=== PATIENT | female | born 1960 | race Caucasian/White ===

== ENCOUNTER 2022-03-20 13:11 | Emergency (ER) | payer SELFPAY ==
[2022-03-20 13:43] VITALS: BP 134/87; PULSE 83; RESP 15; TEMP 36.9; O2SAT 98
[2022-03-20 14:15] LABS: Appearance Urine Clear (Clear); Bilirubin Urine Negative (Negative); Blood Urine Negative (Negative); Color Urine Yellow (Yellow); Glucose Urine UA Negative (Negative); Ketones Urine Negative (Negative); Leukocyte Esterase Ur Trace LEU/UL (Negative); Nitrate Urine Negative (Negative); Protein Urine Negative (Negative); Specific Grav Ur <= 1.005 (1.001-1.035); Urobilinogen Urine 0.2 mg/dL (<2.0)
[2022-03-20 14:24] LABS: Mucus Urine Rare /lpf; Squamous Epithelial Cell Urine Rare /hpf (Few); WBC Urine 0-3 /hpf
[2022-03-20 14:25] LABS: Add Urine Microscopic? YES
--- NOTE | 2022-03-20 16:16 | ED.FEMALEGU ---
HPI - Female Genitourinary General Chief complaint: Urogenital-Female Stated complaint: dark urine, weak Time Seen by Provider: 03/20/22 15:41 Source: patient Mode of arrival: ambulatory Limitations: no limitations History of Present Illness HPI Narrative: This is a 61 year old female that presents to the ER for possible dehydration. Reports she noted her urine was dark today. She recently had a diarrheal illness. She was placed on metronidazole by her GI doctor. Her diarrhea has largely now resolved. Denies fever, flank pain, abdominal pain, vomiting, or dysuria. Related Data Allergies Allergy/AdvReac Type Severity Reaction Status Date / Time diphenhydramine Allergy Unknown Unknown Verified 03/20/22 15:47 Penicillins Allergy Unknown Unknown Verified 03/20/22 15:47 Review of Systems Review of Systems: CONSTITUTIONAL: Denies fever GASTROINTESTINAL: Denies abdominal pain, nausea, vomiting, or diarrhea. GENITOURINARY: Denies dysuria All systems reviewed & are unremarkable except as noted in HPI and below PMFSH Past Medical History Medical History (Updated 03/20/22 @ 18:03 by Rosalia Israel PA-C) No active medical problems Surgical History Surgical History (Updated 03/20/22 @ 16:17 by Rosalia Israel PA-C) History of hysterectomy Family History Family History (Updated 12/19/15 @ 16:17 by DOCTOR UNKNOWN) Mother Hypertension Family history of type 2 diabetes mellitus Father Patient's father is Social History Social History Smoking status: Never smoker Alcohol intake: never Exam Narrative: GENERAL: Well-appearing, well-nourished, and in no acute distress. HEAD: Normocephalic, atraumatic. EYES: EOMI. CHEST: Clear to auscultation. No respiratory distress. No wheezes rales or rhonchi HEART: Regular rate and rhythm. No murmur heard. Normal peripheral pulses. ABDOMEN: Soft, nontender, nondistended, normal active bowel sounds. No CVA tenderness EXTREMITIES: Normal range of motion. No edema. SKIN: Warm, dry, no rash. NEURO: No focal deficits. Alert and oriented x3. PSYCH: Normal mood and affect Course Vital Signs Vital signs: Vital Signs Temperature 98.4 F 03/20/22 13:43 Pulse Rate 83 03/20/22 13:43 Respiratory Rate 15 03/20/22 13:43 Blood Pressure 134/87 03/20/22 13:43 Pulse Oximetry 98 03/20/22 13:43 Oxygen Delivery Room Air 03/20/22 13:43 Temperature 98.4 F 03/20/22 13:43 Pulse Rate 71 03/20/22 17:39 Respiratory Rate 18 03/20/22 17:39 Blood Pressure 128/73 03/20/22 17:39 Pulse Oximetry 99 03/20/22 17:39 Oxygen Delivery Room Air 03/20/22 13:43 MDM - Female Genitourinary MDM Narrative Medical decision making narrative: Patient presents to the ER for possible dehydration due to recent diarrheal illness. Reports she thought her urine looked dark. She is afebrile and nontoxic-appearing. Her vitals are stable. CBC with mild leukocytosis to 11. Metabolic panel without concerning findings. UA without evidence of infection. Patient was hydrated with a liter of IV fluids with relief. Is currently on metronidazole with relief of her diarrhea. She is following with GI for this. Patient is stable and felt appropriate for further outpatient evaluation. She was given warnings to return to the ER Lab Data Attestation: I reviewed the patient's lab results. Result diagrams: 03/20/22 16:12 03/20/22 16:12 Labs: Lab Results 03/20/22 03/20/22 03/20/22 Range/Units 13:42 16:12 16:12 WBC 11.0 H (4.5-10.0) K/mm3 RBC 4.92 (4.2-5.4) M/mm3 Hgb 13.6 (12.0-15.0) g/dL Hct 42.0 (37.0-47.0) % MCV 85.4 (80-100) fl MCH 27.6 (26-34) pg MCHC 32.4 (32-36) g/dl RDW 13.0 (11.5-14.5) % Plt Count 311 (150-375) k/mm3 MPV 8.6 (7.4-10.4) fl Immature Gran % (Auto) 1.3 H (0-0.5) % Neut % (Auto) 62.8 (45.5-73.1) % Lymph % (Auto) 24.3 (18.3-44.2) %
[2022-03-20 16:17] LABS: Basophils Absolute Auto 0.1 K/mm3 (0.0-0.1); Basophils Percent Auto 0.6 % (0.2-1.2); Eosinophils Absolute Auto 0.2 K/mm3 (0-0.3); Eosinophils Percent Auto 1.6 % (0-4.4); Hemoglobin 13.6 g/dL (12.0-15.0); Immature Granulocyte Absolute 0.14 K/mm3 (0.00-0.031); Immature Granulocyte Percent A 1.3 % (0-0.5); Lymphocytes Absolute Auto 2.66 K/mm3 (0.9-3.2); Lymphocytes Percent Auto 24.3 % (18.3-44.2); Mean Corpuscular HGB Conc 32.4 g/dl (32-36); Mean Corpuscular Hemoglobin 27.6 pg (26-34); Mean Corpuscular Volume 85.4 fl (80-100); Mean Platelet Volume 8.6 fl (7.4-10.4); Monocytes Percent Auto 9.4 % (2.6-8.5); Neutrophils Absolute Auto 6.9 K/mm3 (1.3-6.7); Neutrophils Percent Auto 62.8 % (45.5-73.1); Platelet Count Result 311 k/mm3 (150-375); Red Blood Count 4.92 M/mm3 (4.2-5.4)
[2022-03-20 16:28] LABS: Alanine Aminotransferase 26 U/L (6-35); Albumin Level 4.5 g/dL (3.5-5.1); Alkaline Phosphatase 86 U/L (38-126); Anion Gap 9 mmol/L (8-16); Aspartate Amino Transferase 48 U/L (14-36); Bilirubin,Total 0.4 mg/dL (0.2-1.3); Blood Urea Nitrogen 12 mg/dL (7-17); Calcium 9.7 mg/dL (8.4-10.2); Carbon Dioxide 28 mmol/L (22-30); Chloride 101 mmol/L (98-107); Estimated Glomerular Filt Rate > 60; Glucose 105 mg/dL (65-110); Potassium 3.5 mmol/L (3.4-5.0); Sodium 138 mmol/L (137-145)
[2022-03-20 16:52] VITALS: BP 127/68; PULSE 72; RESP 18; O2SAT 96
[2022-03-20] MEDS: SODIUM CHLORIDE 0.9% IV 1,000 ML 999 ML IV CONT (17:38)
[2022-03-20 17:39] VITALS: BP 128/73; PULSE 71; RESP 18; O2SAT 99
== END 2022-03-20 18:16 | disposition home or self-care (01) ==
PROVIDERS: Physician Assistant; Emergency Provider Family Medicine
DX: E86.0 Dehydration (principal); Z90.710 Acquired absence of both cervix and uterus
CPT/HCPCS: 36415; 80053; 81001; 85025; 96360; 99283; J7030

== ENCOUNTER 2022-03-29 19:54 | Emergency (ER) | payer SELFPAY ==
[2022-03-29] VITALS (14 sets, daily range): BP systolic 118–151; BP diastolic 56–76; PULSE 75–103; RESP 14–22; TEMP 36.6; O2SAT 97–99
--- NOTE | ~2022-03-29 | XR_ITS ---
EXAMINATION: XR chest 2V Exam Date/Time: 03/29/2022 20:30 CDT HISTORY: LEFT SIDED CP RADIATES DOWN L ARM X 5 HRS NO CARDIAC HX Comparison: None available. RESULT: Lines, tubes, and devices: None. Lungs and pleura: Clear. Cardiomediastinal silhouette: Unremarkable. Other: No acute osseous or upper abdominal finding. IMPRESSION: No acute cardiopulmonary process. Reviewed, dictated and finalized at location K.
--- NOTE | 2022-03-29 19:55 | PC.NURSE ---
When bringing patient to room via w/c, patient stated she needed to use the bathroom and could not hold it. Patient informed that the EKG was important to be done rapidly. Patient stated I'm sorry, I can't hold it, I have to go. Patient ambulated to the bathroom with a steady gait.
--- NOTE | 2022-03-29 20:00 | ECG_ITS ---
Measurements Intervals [place] Rate: 103 P: 62 [place]: 187 QRS: 20 QRSD: 96 T: 36 QT: 353 QTc: 463 Interpretive Statements SINUS TACHYCARDIA INFERIOR MYOCARDIAL INFARCTION , PROBABLY OLD [40+ ms Q WAVE AND/OR ST/T ABNORMALITY IN II/aVF] POOR R-WAVE PROGRESSION ABNORMAL ECG NO PREVIOUS ECG AVAILABLE FOR COMPARISON Electronically Signed On 03-30-2022 12:20:52 CDT by Buzz Osuna M.D.
--- NOTE | 2022-03-29 20:15 | ED.GENADULT ---
HPI - General Adult General Chief complaint: Chest Pain Stated complaint: Chest Pain Time Seen by Provider: 03/29/22 20:07 History of Present Illness HPI narrative: Patient is a 61-year-old female that presents the emergency department with chief complaint of chest pain. The patient reports that around 3 PM today she noticed count about uncomfortable feeling in her chest and into her left arm. The patient states the symptoms are mostly in the left arm reports that it can of an aching-like sensation patient reports no shortness of breath no diaphoresis. Patient reports she was recently treated for dehydration after she had a gastrointestinal infection and was treated with Flagyl. Patient reports no prior history of cardiac disease reports no history of hypertension or high cholesterol. The patient denies smoking Related Data Home Medications Medication Instructions Recorded Confirmed No Home Medications 03/29/22 03/29/22 Allergies Allergy/AdvReac Type Severity Reaction Status Date / Time diphenhydramine Allergy Unknown Unknown Verified 03/29/22 20:06 Penicillins Allergy Unknown Unknown Verified 03/29/22 20:06 Review of Systems Review of Systems: A 10 system review of systems was completed on the patient and is negative except for what is stated in the HPI. Nursing and ancillary documentation was reviewed. PMFSH Past Medical History Medical History No active medical problems Surgical History Surgical History History of hysterectomy Family History Family History Mother Hypertension Family history of type 2 diabetes mellitus Father Patient's father is Social History Social History Smoking status: Never smoker Alcohol intake: never Exam Narrative: GENERAL: Well-appearing, well-nourished, and in no acute distress. HEAD: Normocephalic, atraumatic. EYES: PERRLA and EOMI. ENT: Nares clear, no rhinorrhea or epistaxis. Mucous membranes moist. NECK: Supple. CHEST: Clear to auscultation. No respiratory distress. HEART: Regular rate and rhythm. No murmur heard. Normal peripheral pulses. ABDOMEN: Soft, nontender, nondistended, normal active bowel sounds. EXTREMITIES: Normal range of motion. No edema. SKIN: Warm, dry, no rash. NEURO: No focal deficits. Alert and oriented x3. PSYCH: Normal mood and affect. Course Course Emergency Course: EKG is sinus rhythm rate of [address] elevation or ST depression is nonspecific T wave abnormalities Vital Signs Vital signs: Vital Signs Temperature 36.6 C 03/29/22 20:06 Pulse Rate 87 03/29/22 20:06 Respiratory Rate 16 03/29/22 20:06 Blood Pressure 151/74 H 03/29/22 20:06 Pulse Oximetry 99 03/29/22 20:06 Temperature 36.6 C 03/29/22 20:06 Pulse Rate 79 03/29/22 22:45 Respiratory Rate 16 03/29/22 22:45 Blood Pressure 130/76 03/29/22 22:45 Pulse Oximetry 98 03/29/22 22:45 Medical Decision Making Vital Signs Vital Signs: Vital Signs Temperature 36.6 C 03/29/22 20:06 Pulse Rate 87 03/29/22 20:06 Respiratory Rate 16 03/29/22 20:06 Blood Pressure 151/74 H 03/29/22 20:06 Pulse Oximetry 99 03/29/22 20:06 Temperature 36.6 C 03/29/22 20:06 Pulse Rate 79 03/29/22 22:45 Respiratory Rate 16 03/29/22 22:45 Blood Pressure 130/76 03/29/22 22:45 Pulse Oximetry 98 03/29/22 22:45 Lab Data Result diagrams: 03/29/22 21:28 03/29/22 21:28 Labs: Lab Results 03/29/22 03/29/22 03/29/22 Range/Units 21:28 21:28 21:30 WBC 10.5 H (4.5-10.0) K/mm3 RBC 4.92 (4.2-5.4) M/mm3 Hgb 13.4 (12.0-15.0) g/dL Hct 42.3 (37.0-47.0) % MCV 86.0 (80-100) fl MCH 27.2 (26-34) pg MCHC
[2022-03-29 21:37] LABS: Basophils Absolute Auto 0.1 K/mm3 (0.0-0.1); Basophils Percent Auto 0.6 % (0.2-1.2); Eosinophils Absolute Auto 0.2 K/mm3 (0-0.3); Eosinophils Percent Auto 1.7 % (0-4.4); Hematocrit 42.3 % (37.0-47.0); Hemoglobin 13.4 g/dL (12.0-15.0); Immature Granulocyte Absolute 0.07 K/mm3 (0.00-0.031); Immature Granulocyte Percent A 0.7 % (0-0.5); Lymphocytes Absolute Auto 3.16 K/mm3 (0.9-3.2); Mean Corpuscular HGB Conc 31.7 g/dl (32-36); Mean Corpuscular Hemoglobin 27.2 pg (26-34); Monocytes Percent Auto 9.1 % (2.6-8.5); Neutrophils Absolute Auto 6.1 K/mm3 (1.3-6.7); Neutrophils Percent Auto 57.9 % (45.5-73.1); Platelet Count Result 345 k/mm3 (150-375); Red Blood Count 4.92 M/mm3 (4.2-5.4); Red Cell Distribution Width 13.4 % (11.5-14.5); White Blood Count 10.5 K/mm3 (4.5-10.0)
[2022-03-29 21:48] LABS: INR 1.1; Prothrombin Time 13.5 Seconds (11.1-14.7)
[2022-03-29 21:49] LABS: Partial Thromboplastin Time 29.3 SECONDS (22.3-36.8)
[2022-03-29 21:50] LABS: Alanine Aminotransferase 20 U/L (6-35); Albumin Level 4.4 g/dL (3.5-5.1); Alkaline Phosphatase 71 U/L (38-126); Anion Gap 8 mmol/L (8-16); Aspartate Amino Transferase 28 U/L (14-36); Bilirubin,Total 0.4 mg/dL (0.2-1.3); Blood Urea Nitrogen 14 mg/dL (7-17); Calcium 8.9 mg/dL (8.4-10.2); Carbon Dioxide 28 mmol/L (22-30); Chloride 103 mmol/L (98-107); Estimated Glomerular Filt Rate > 60; Glucose 115 mg/dL (65-110); Lipase 52 U/L (23-300); Potassium 3.8 mmol/L (3.4-5.0); Sodium 139 mmol/L (137-145)
[2022-03-29 22:00] LABS: Troponin I < 0.012 ng/mL (0.000-0.034)
[2022-03-29 23:45] LABS: Troponin I < 0.012 ng/mL (0.000-0.034)
== END 2022-03-30 00:01 | disposition home or self-care (01) ==
PROVIDERS: Emergency Provider Emergency Medicine; PCP Family Medicine
DX: R07.9 Chest pain, unspecified (principal); Z90.710 Acquired absence of both cervix and uterus; R00.0 Tachycardia, unspecified; R94.31 Abnormal electrocardiogram [ECG] [EKG]
CPT/HCPCS: 36415; 71046; 80053; 83690; 84484; 85025; 85610; 85730; 93005; 99284

== ENCOUNTER 2022-04-09 06:53 | Outpatient (CLI) | payer SELFPAY ==
[2022-04-09 07:31] LABS: Cholesterol 208 mg/dL (0-200); HDL Direct 52 mg/dL; Triglycerides 141 mg/dL (<150)
[2022-04-09 07:52] LABS: LDL Cholesterol Direct 116 mg/dL
[2022-04-09 12:33] LABS: Toxigenic C. Diff NEGATIVE (NEGATIVE)
== END 2022-04-09 06:54 | disposition home or self-care (01) ==
PROVIDERS: PCP Family Medicine; Referring Provider Nurse Practitioner Family
DX: R07.2 Precordial pain (principal); Z82.49 Family history of ischemic heart disease and other diseases of the circulatory system; R19.7 Diarrhea, unspecified
CPT/HCPCS: 36415; 80061; 87045; 87427; 87493

== ENCOUNTER 2024-07-15 16:46 | Emergency (ER) | payer MEDICARE, SELFPAY ==
--- NOTE | ~2024-07-15 | XR_ITS ---
EXAMINATION: XR chest 2V DATE: 07/15/2024 17:32 INDICATION: Chest pain. Palpitations. TECHNIQUE: Frontal and lateral views of the chest were obtained. COMPARISON: Chest 2 views 03/29/2022 FINDINGS: There is no pneumonia, pleural effusion, or pneumothorax. The heart size is normal. IMPRESSION: 1. No acute cardiopulmonary disease. Reviewed, dictated and finalized at location A. ONAL ATTENDANT
--- NOTE | 2024-07-15 16:49 | ECG_ITS ---
Test Date: 2024-07-15 16:55:00 Measurements Intervals [place] Rate: 92 P: 55 ND: 197 QRS: 1 QRSD: 90 T: 26 QT: 357 QTc: 443 Interpretive Statements SINUS RHYTHM POSSIBLE LEFT ATRIAL ENLARGEMENT [-0.1mV P WAVE IN V1/V2] INFERIOR MYOCARDIAL INFARCTION , PROBABLY OLD [40+ ms Q WAVE AND/OR ST/T ABNORMALITY IN II/aVF] No previous ECG available for comparison Electronically Signed On 07-16-2024 13:00:11 ASH WORKER by Wolf Hollins M.D.
[2024-07-15 16:58] VITALS: BP 147/76; PULSE 91; RESP 20; TEMP 36.6; O2SAT 99
[2024-07-15 17:22] LABS: Basophils Absolute Auto 0.1 K/mm3 (0.0-0.1); Basophils Percent Auto 0.4 % (0.2-1.2); Eosinophils Absolute Auto 0.5 K/mm3 (0-0.3); Eosinophils Percent Auto 4.3 % (0-4.4); Hematocrit 42.4 % (37.0-47.0); Hemoglobin 13.7 g/dL (12.0-15.0); Immature Granulocyte Absolute 0.06 K/mm3 (0.00-0.031); Immature Granulocyte Percent A 0.5 % (0-0.5); Lymphocytes Absolute Auto 3.17 K/mm3 (0.9-3.2); Lymphocytes Percent Auto 25.4 % (18.3-44.2); Mean Corpuscular HGB Conc 32.3 g/dl (32-36); Mean Corpuscular Hemoglobin 27.7 pg (26-34); Mean Corpuscular Volume 85.8 fl (80-100); Mean Platelet Volume 8.9 fl (7.4-10.4); Monocytes Percent Auto 8.1 % (2.6-8.5); Neutrophils Absolute Auto 7.7 K/mm3 (1.3-6.7); Neutrophils Percent Auto 61.3 % (45.5-73.1); Platelet Count Result 327 k/mm3 (150-375); Red Blood Count 4.94 M/mm3 (4.2-5.4); Red Cell Distribution Width 13.1 % (11.5-14.5); White Blood Count 12.5 K/mm3 (4.5-10.0)
[2024-07-15 17:25] LABS: Alanine Aminotransferase 13 U/L (6-35); Albumin Level 4.6 g/dL (3.5-5.1); Alkaline Phosphatase 80 U/L (38-126); Anion Gap 5 mmol/L (4-12); Aspartate Amino Transferase 25 U/L (14-36); Bilirubin,Total 0.4 mg/dL (0.2-1.3); Blood Urea Nitrogen 21 mg/dL (7-17); Calcium 9.8 mg/dL (8.4-10.2); Carbon Dioxide 31 mmol/L (22-30); Chloride 103 mmol/L (98-107); Estimated Glomerular Filt Rate > 60; Glucose 122 mg/dL (65-110); Lipase 69 U/L (23-300); Potassium 3.9 mmol/L (3.4-5.0); Sodium 139 mmol/L (137-145)
[2024-07-15 17:35] LABS: Prothrombin Time 13.8 Seconds (11.1-14.7)
[2024-07-15 17:36] LABS: Partial Thromboplastin Time 28.6 Seconds (22.3-36.8); Troponin I < 0.012 ng/mL (0.000-0.034)
[2024-07-15 19:17] VITALS: BP 150/91; PULSE 73; RESP 18; O2SAT 100
--- NOTE | 2024-07-15 19:18 | ED_ITS ---
HPI - Arrhythmia/Palpitations General Chief Complaint: Arrhythmia/Palpitations Stated Complaint: palpatations Time Seen by Provider: 07/15/24 19:02 History of Present Illness HPI narrative: 64-year-old female presenting to the emergency room with a chief complaint of intermittent heart palpitations. She has a history of mitral valve prolapse he is being monitored by an outpatient dental mold maker. She has a cardiology appointment in 3 days time. Today she presents to the emergency department she is having some intermittent palpitations described as a thumping in skipping heartbeats. Denies any chest pain, chest pressure shortness of breath. She does not take any cardioactive medications, blood pressure medications or any rate-controlling medications. No history of AFib no blood thinner use. Was otherwise in her normal state of health. States she has been under a lot of stress and feeling anxious lately. Denies any nausea, vomiting, abdominal pain, back pain and denies any injuries or recent illnesses. Related Data Home Medications ?Medication ?Instructions ?Recorded ?Confirmed ?Last Taken ?Type No Home Medications 03/29/22 03/29/22 Unknown History Allergies Allergy/AdvReac Type Severity Reaction Status Date / Time metronidazole (From Flagyl) Allergy Intermediate Diarrhea Verified 07/15/24 16:57 diphenhydramine Allergy Unknown Unknown Verified 07/15/24 16:57 Penicillins Allergy Unknown Unknown Verified 07/15/24 16:57 Review of Systems 2 Review of Systems: As reviewed above in HPI PMFSH Past Medical History Medical History No active medical problems Surgical History Surgical History History of hysterectomy Family History Family History Mother Hypertension Family history of type 2 diabetes mellitus Father Patient's father is Social History Social History Smoking status: Never smoker Alcohol intake: never Exam 2 Narrative: GENERAL: [Well-appearing, well-nourished, and in no acute distress.] HEAD: [Normocephalic, atraumatic.] EYES: [PERRLA and EOMI.] ENT: Nares clear, no rhinorrhea or epistaxis. Mucous membranes moist. NECK: Supple. CHEST: [Clear to auscultation. No respiratory distress.] HEART: [Regular rate and rhythm]. No murmur heard. [Normal peripheral pulses.] Clear S1-S2 with no audible extra heart sounds ABDOMEN: [Soft, nondistended], [nontender], [No rigidity or guarding] EXTREMITIES: Normal range of motion. [No edema.] SKIN: Warm, dry, no rash. NEURO: [No focal deficits]. Alert and oriented [x3.] PSYCH: [Normal mood and affect.] Course Vital Signs Vital signs: Vital Signs Temperature 36.6 C 07/15/24 16:58 Pulse Rate 91 07/15/24 16:58 Respiratory Rate 20 07/15/24 16:58 Blood Pressure 147/76 H 07/15/24 16:58 Pulse Oximetry 99 07/15/24 16:58 Oxygen Delivery Room Air 07/15/24 16:58 Temperature 36.6 C 07/15/24 16:58 Pulse Rate 73 07/15/24 19:17 Respiratory Rate 18 07/15/24 19:17 Blood Pressure 150/91 H 07/15/24 19:17 Pulse Oximetry 100 07/15/24 19:17 Oxygen Delivery Room Air 07/15/24 16:58 MDM - Arrhythmia/Palpitations MDM Narrative Medical decision making narrative: This is a 64-year-old female with history of mitral valve prolapse being monitored outpatient by her dental mold maker. She has cardiology appointment 3 days. She presents today with intermittent palpitations described as a thumping skipped beat. No history of AFib or atrial flutter. Denies any chest pain shortness a breath. Denies any other symptoms at this time and states she is she is presently asymptomatic with feels like she was having a lot of stressors in her life and anxious lately. She is slightly hypertensive with a blood pressure 147/76 but no other vital concerns such as tachycardia, hypoxia, fever. Very low Wells criteria and does not require any additional workup for PE as she has no risk factors and Wells of 0. Cardiac workup was ordered including serial troponins, CBC, CMP, urinalysis, lipase, chest x-ray, EKG. Workup reveals a slight leukocytosis of 12.5 with nonspecific. No anemia, normal platelets. PT and PTT within normal limits. Normal renal function panel, normal glucose, normal electrolyte profile, normal hepatic function panel, negative troponin x2, negative lipase. Urinalysis without any evidence of infection. Chest x-ray within cardiopulmonary findings, EKG with no ischemic evidence. Patient re-evaluated several times and had no persistent symptoms or recurrence of her symptoms while here in the emergency department. Remains in good health with normal vital signs and stable for discharge with regular PCP follow-up and her cardiology appointment on Thursday. Patient's questions were answered she was safe for discharge at this time. Medical Records Attestation: I reviewed the patient's medical records. Lab Data Attestation: I reviewed the patient's lab results. 07/15/24 17:07 07/15/24 17:07 Labs: Lab Results 07/15/24 07/15/24 07/15/24 Range/Units 17:07 18:58 18:59 WBC 12.5 H (4.5-10.0) K/mm3 RBC 4.94 (4.2-5.4) M/mm3 Hgb 13.7 (12.0-15.0) g/dL Hct 42.4 (37.0-47.0) % MCV 85.8 (80-100) fl MCH 27.7 (26-34) pg MCHC 32.3 (32-36) g/dl RDW 13.1 (11.5-14.5) % Plt Count 327 (150-375) k/mm3 MPV 8.9 (7.4-10.4) fl Immature Gran % (Auto) 0.5 (0-0.5) % Neut % (Auto) 61.3 (45.5-73.1) % Lymph % (Auto) 25.4 (18.3-44.2) % [place] % (Auto) 8.1 (2.6-8.5) % Eos % (Auto) 4.3 (0-4.4) % Baso % (Auto) 0.4 (0.2-1.2) % Lymph # (Auto) 3.17 (0.9-3.2) K/mm3 [place] # (Auto) 1.0 H (0.1-0.6) K/mm3 Eos # (Auto) 0.5 H (0-0.3) K/mm3 Baso # (Auto) 0.1 (0.0-0.1) K/mm3 Abs Immat Gran (auto) 0.06 H (0.00-0.031) K/mm3 Absolute Neuts (auto) 7.7 H (1.3-6.7) K/mm3 Absolute Nucleated RBC 0.000 (0.0-0.012) K/mm3 Nucleated RBC % 0.0 (0.0-0.2) % PT 13.8 (11.1-14.7) Seconds INR 1.0 APTT 28.6 (22.3-36.8) Seconds Sodium 139 (137-145) mmol/L Potassium 3.9 (3.4-5.0) mmol/L Chloride 103 (98-107) mmol/L Carbon Dioxide 31 H (22-30) mmol/L Anion Gap 5 (4-12) mmol/L BUN 21 H (7-17) mg/dL Creatinine 0.60 L (0.7-1.0) mg/dL Estim Creat Clear Calc Not Reportable Estimated GFR > 60 (59 - ) Glucose 122 H (65-110) mg/dL Calcium 9.8 (8.4-10.2) mg/dL Total Bilirubin 0.4 (0.2-1.3) mg/dL AST 25 (14-36) U/L ALT 13 (6-35) U/L Alkaline Phosphatase 80 (38-126) U/L Troponin I < 0.012 < 0.012 (0.000-0.034) ng/mL Total Protein 8.0 (6.3-8.2) g/dL Albumin 4.6 (3.5-5.1) g/dL Lipase 69 (23-300) U/L Urine Color Yellow (Yellow) Urine Appearance Clear (Clear) Urine pH 5.5 (5.0-9.0) Ur Specific [place] 1.005 (1.001-1.035) Urine Protein Negative (Negative) mg/dL Urine Glucose (UA) Negative (Negative) mg/dL Urine Ketones Negative (Negative) mg/dL Ur Blood (Man) Negative (Negative) Urine Nitrate Negative (Negative) Urine Bilirubin Negative (Negative) Urine Urobilinogen 0.2 (<2.0) mg/dL Leukocyte Esterase Rfl Trace H (Negative) SAM/UL Urine RBC 0-2 (0-2) /hpf Urine WBC 0-5 (0-3) /hpf Ur Squamous Epith Cells None seen (Few) /hpf Urine Bacteria None seen /hpf Urine Casts 0-2 Imaging Data Attestation: I personally reviewed and interpreted this imaging study as follows: My impression: Impressions Chest X-Ray 07/15/24 17:39 IMPRESSION: 1. No acute cardiopulmonary disease. ECG Data EKG #1: Attestation: I personally reviewed and interpreted this ECG as follows: ECG completion date: 07/15/24 ECG completion time: 16:55 Prior ECG tracings: not available for review Interpretation: No ST segment elevations, depressions or inversions. There is prominent P waves indicative of some right atrial enlargement with patient's known history of mitral valve prolapse very likely the baseline cause. No ectopy, no QTC interval prolongation or shortened or prolonged OR interval. Overall normal sinus rhythm, regular rate and rhythm. No previous EKG for comparison. Discharge Plan Discharge Clinical Impression: Palpitations Patient Disposition: Home, Self-Care Condition: Stable Instructions: Antibiotic Form Additional Instructions: Your cardiac workup was very unremarkable and there are no signs of infection in your chest him a urine or any of your blood work, please keep your follow-up with the dental mold maker on Thursday for repeat evaluation. Return with any new or worsening concerns at any time. Patient Language: Guatemalan Prescriptions: No Action No Home Medications Follow-up/Referrals: Fausto Odom MD [Primary Care Provider] - Time of Disposition: 21:35
[2024-07-15 19:29] LABS: Troponin I < 0.012 ng/mL (0.000-0.034)
[2024-07-15 19:39] LABS: Add Urine Microscopic? YES; Appearance Urine Clear (Clear); Bacteria Urine None Seen /hpf; Bilirubin Urine Negative (Negative); Blood Urine Negative (Negative); Color Urine Yellow (Yellow); Glucose Urine UA Negative (Negative); Ketones Urine Negative (Negative); Leukocyte Esterase Ur Trace LEU/UL (Negative); Nitrate Urine Negative (Negative); Non Pathogenic Casts 0-2; Protein Urine Negative (Negative); RBC Urine 0-2 /hpf (0-2); Specific Grav Ur 1.005 (1.001-1.035); Squamous Epithelial Cell Urine None Seen /hpf (Few); Urobilinogen Urine 0.2 mg/dL (<2.0); WBC Urine 0-5 /hpf (0-3); pH Urine 5.5 (5.0-9.0)
[2024-07-15 22:01] VITALS: BP 136/78; PULSE 76; RESP 18; O2SAT 97
--- OUTSIDE RECORDS SUMMARY | 2024-07-19 08:12 | XMS_ITS | Referral Summary ---
Author Organization [facility] Address [address] [place] [address] Care Team Providers Care Director Of Logistics Name Role Phone Unknown, Provider Primary Care Provider Unavaila ble Source Comments [facility],non-owned Affiliates and Associated Physician Practices is amultiple site organization consisting of ambulatory clinics and hospital sitesin [place], [place], [place] and [place]. This disclosure is being madepursuant to the Care Everywhere program and may not contain all information available regarding this patient. Last updated 18.[facility] Allergies Active Allergy Reactions Criticality Noted Date Comments Diphenhydramine Palpitations 03/17/2020 Penicillins Urticaria Medium 03/17/2020 Medications * Be aware that medications may not be up to date on this document. Alwaysverify current medications with the patient. Medication Sig Dispensed Refills Start Date End Date Status azithromycin (ZITHROMAX) 250 MG tabletIndications:si nusitis Take 2 tabs today, then 1 tab daily for next 4 days Reasons: sinusitis 6 tablet 07/04/2021 Active Active Problems No known active problems Immunizations Name Administration Dates Next Due TDAP (7yrs+) 03/17/2020 Social History Tobacco Use Types Packs/Day Years Used Date Smoking Tobacco: Never Smokeless Tobacco: Never Tobacco Cessation:Counseling Given: No Sex and Gender Information Value Date Recorded Sex Assigned at Not on file Gender Identity Not on file Sexual Orientation Not on file Last Filed Vital Signs Vital Sign Reading Time Taken Comments Blood Pressure 112/80 07/04/2021 9:49 AM IT PROJECT LEAD Pulse 86 07/04/2021 9:49 AM IT PROJECT LEAD Temperature 36.7 ??C (98 ??F) 07/04/2021 9:49 AM IT PROJECT LEAD Respiratory Rate 18 07/04/2021 9:49 AM IT PROJECT LEAD Oxygen Saturation 97% 07/04/2021 9:49 AM IT PROJECT LEAD Inhaled Oxygen Concentration - - Weight 72.6 kg (160 lb) 07/04/2021 9:49 AM IT PROJECT LEAD Height 149.9 cm (4' 11 ) 07/04/2021 9:49 AM IT PROJECT LEAD Body Mass Index 32.32 07/04/2021 9:49 AM IT PROJECT LEAD Plan of Treatment Not on file Care Teams Director Of Logistics Relationship Specialty Start Date End Date Unknown, Provider PCP - General 03/17/20
--- OUTSIDE RECORDS SUMMARY | 2024-07-19 08:12 | XMS_ITS | Encounter Summary ---
Author Organization [facility] Address [address] [place] [address] Care Team Providers Care Photographer'S Model Name Role Phone Unknown, Provider Primary Care Provider Unavaila ble Encounter Details Date Type Department Care Team (Latest Contact Info) Description 03/17/2020 Travel Social History Tobacco Use Types Packs/Day Years Used Date Smoking Tobacco: Never Assessed Sex and Gender Information Value Date Recorded Sex Assigned at Not on file Gender Identity Not on file Sexual Orientation Not on file COVID-19 Exposure Response Date Recorded In the last month, have you been in contact with someone who was confirmed or suspected to have Coronavirus / COVID-19? No / Unsure 03/17/2020 11:22 AM CDT documented as of this encounter Plan of Treatment Not on file documented as of this encounter Visit Diagnoses Not on filedocumented in this encounter Care Teams Photographer'S Model Relationship Specialty Start Date End Date Unknown, Provider PCP - General 03/17/20 documented as of this encounter
--- OUTSIDE RECORDS SUMMARY | 2024-07-19 08:12 | XMS_ITS | Encounter Summary ---
Author Organization [facility] Address [address] [place] [address] Care Team Providers Care Superintendent Compressor Stations Name Role Phone Unknown, Provider Primary Care Provider Unavaila ble Encounter Details Date Type Department Care Team (Latest Contact Info) Description 07/04/2021 Travel Social History Tobacco Use Types Packs/Day Years Used Date Smoking Tobacco: Never Smokeless Tobacco: Never Sex and Gender Information Value Date Recorded Sex Assigned at Not on file Gender Identity Not on file Sexual Orientation Not on file COVID-19 Exposure Response Date Recorded In the last month, have you been in contact with someone who was confirmed or suspected to have Coronavirus / COVID-19? 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
--- OUTSIDE RECORDS SUMMARY | 2024-07-19 08:12 | XMS_ITS | Clinical Summary ---
Author Organization [facility] Address [address] [place] [address] Care Team Providers Care Erisa Attorney Name Role Phone Unknown, Provider Primary Care Provider Unavaila ble Source Comments [facility],non-owned Affiliates and Associated Physician Practices is amultiple site organization consisting of ambulatory clinics and hospital sitesin [place], [place], [place] and [place]. This disclosure is being madepursuant to the Care Everywhere program and may not contain all information available regarding this patient. Last updated 18.[employer] [facility] Allergies Active Allergy Reactions Criticality Noted Date [...] Comments Blood Pressure 112/80 07/04/2021 9:49 AM GLASS VIAL BENDING CONVEYOR FEEDER Pulse 86 07/04/2021 9:49 AM GLASS VIAL BENDING CONVEYOR FEEDER Temperature 36.7 ??C (98 ??F) 07/04/2021 9:49 AM GLASS VIAL BENDING CONVEYOR FEEDER Respiratory Rate 18 07/04/2021 9:49 AM GLASS VIAL BENDING CONVEYOR FEEDER Oxygen Saturation 97% 07/04/2021 9:49 AM GLASS VIAL BENDING CONVEYOR FEEDER Inhaled Oxygen Concentration - - Weight 72.6 kg (160 lb) 07/04/2021 9:49 AM GLASS VIAL BENDING CONVEYOR FEEDER Height 149.9 cm (4' 11 ) 07/04/2021 9:49 AM GLASS VIAL BENDING CONVEYOR FEEDER Body Mass Index 32.32 07/04/2021 9:49 AM GLASS VIAL BENDING CONVEYOR FEEDER Plan of Treatment Health Maintenance Due Date Last Done Comments BONE DENSITY TESTING 1959 COLOGUARD (AGES 45-75) - COL ON CA SCREENING 1959 COLON MONITORING 1959 COLONOSCOPY - COLON CA SCREENING 1959 CT COLONOGRAPHY - COLON CA SCREENING 1959 Colorectal Cancer Screening 1959 FIT - COLON CA SCREENING 1959 FLEX SIG - COLON CA SCREENING 1959 LIPID TESTING 1959 MAMMOGRAM 1959 PAP SMEAR 1959 HIV SCREENING 1974 HEPATITIS C SCREENING 04/13/1977 ZOSTER VACCINE (1 of 2) 2009 SCREENING FOR DIABETES 07/04/2021 DEPRESSION SCREENING 08/03/2023 COVID-19 VACCINE ( - 2023-2 5 season) 2024 INFLUENZA VACCINE (#1) 2024 PNEUMOCOCCAL VACCINE 65+ (1 of 1 - PCV) 2024 DTAP/TDAP/TD VACCINES (2 - T d or Tdap) 03/17/2030 03/17/2020 Respiratory Syncytial Virus (RSV) Vaccine Pt: or over 60 yrs (1 - 1-dose 75+ series) 2034 HEPATITIS B VACCINE Aged Out No longe r eligible based on patient's age to complete this topic HIB VACCINE Aged Out No longer eligi ble based on patient's age to complete this topic HPV VACCINE Aged Out No longer eligi ble based on patient's age to complete this topic MENINGOCOCCAL VACCINE Aged Out No daniel lakisha eligible based on patient's age to complete this topic Care Teams Erisa Attorney Relationship Specialty Start Date End Date Unknown, Provider PCP - General 03/17/20
--- OUTSIDE RECORDS SUMMARY | 2024-07-19 08:12 | XMS_ITS | Patient Health Summary ---
Author Organization [facility] Address [address] [place] [address] Care Team Providers Care Digital Advertising Specialist Name Role Phone Unknown, Provider Primary Care Provider Unavaila ble Note from [facility],non-owned Affiliates and Associated Physician Practices is amultiple site organization consisting of ambulatory clinics and hospital sitesin [place], [place], [place] and [place]. This disclosure is being madepursuant to the Care Everywhere program and may not contain all information available regarding this patient. Last updated 18.[facility] Allergies * Diphenhydramine(Palpitations) * Penicillins(Urticaria) -Medium Criticality Medications * Be aware that medications may not be up to date on this document. Alwaysverify current medications with the patient. * azithromycin (ZITHROMAX) 250 MG tablet(Started 07/04/2021) Take 2 tabs today, then 1 tab daily for next 4 days Reasons: sinusitis Active Problems No known active problems Immunizations * TDAP (7yrs+)(Given 03/17/2020) Social History Tobacco Use Types Packs/Day Years Used Date Smoking Tobacco: Never Smokeless Tobacco: Never Tobacco Cessation:Counseling Given: No Sex and Gender Information Value Date Recorded Sex Assigned at Not on file Gender Identity Not on file Sexual Orientation Not on file Last Filed Vital Signs Vital Sign Reading Time Taken Comments Blood Pressure 112/80 07/04/2021 9:49 AM ONLINE PUBLISHER Pulse 86 07/04/2021 9:49 AM ONLINE PUBLISHER Temperature 36.7 ??C (98 ??F) 07/04/2021 9:49 AM ONLINE PUBLISHER Respiratory Rate 18 07/04/2021 9:49 AM ONLINE PUBLISHER Oxygen Saturation 97% 07/04/2021 9:49 AM ONLINE PUBLISHER Inhaled Oxygen Concentration - - Weight 72.6 kg (160 lb) 07/04/2021 9:49 AM ONLINE PUBLISHER Height 149.9 cm (4' 11 ) 07/04/2021 9:49 AM ONLINE PUBLISHER Body Mass Index 32.32 07/04/2021 9:49 AM ONLINE PUBLISHER Care Teams Digital Advertising Specialist Relationship Specialty Start Date End Date Unknown, Provider PCP - General 03/17/20
--- OUTSIDE RECORDS SUMMARY | 2024-07-19 08:12 | XMS_ITS | Encounter Summary ---
Author Organization [facility] Address [address] [place] [address] Care Team Providers Care Drier Helper Name Role Phone Unknown, Provider Primary Care Provider Unavaila ble Reason for Visit * Reason Comments Imm Inj Encounter Details Date Type Department Care Team (Late st Contact Info) Description 03/17/2020 2:00 PM CDT Office Visit [facility] [place] [id number] [place] [address] Provider, Caren Exp [place] Encounter for vaccination (Primary Dx) Social History Tobacco Use Types Packs/Day Years [...] AM CDT documented as of this encounter Progress Notes * Giselle Feliz APRN-CNP - 03/17/2020 2:08 PM CDT Patient here for TDaP vaccine today. Allergies reviewed. Vaccine consent signed, reviewed with patient, and scanned into record. Education materials provided to patient. Patient tolerated well. Giselle Feliz APRN, CLINICAL STAFF RN-C documented in this encounter Plan of Treatment Not on file documented as of this encounter Visit Diagnoses Diagnosis Encounter for vaccination- Primary documented in this encounter Care Teams Drier Helper Relationship Specialty Start Date End Date Unknown, Provider PCP - General 03/17/20 documented as of this encounter
--- OUTSIDE RECORDS SUMMARY | 2024-07-19 08:12 | XMS_ITS | Encounter Summary ---
Author Organization [facility] Address [address] [place] [address] Care Team Providers Care Insurance Case Manager Name Role Phone Unknown, Provider Primary Care Provider Unavaila ble Reason for Visit * Reason Onset Date Comments Follow-up 07/06/2021 Encounter Details Date Type Department Care Team (Late st Contact Info) Description 07/06/2021 Telephone [facility] [address] [phone] Alexey Barker APRN-CNP [address] [place] [phone] Follow-up Social History Tobacco Use Types Packs/Day Years [...] COVID-19? No / Unsure 07/04/2021 9:34 AM BOMB TECHNICIAN documented as of this encounter Miscellaneous Notes * Telephone Encounter - Alexey Barker APRN-CNP - 07/06/2021 10:13 AM BOMB TECHNICIAN OEM SALES MANAGER called for f/u. OEM SALES MANAGER spoke to pt who stated she was feeling better, voiced no further questions orconcerns and thanked us for the f/u call. TECHNICIAN documented in this encounter Plan of Treatment Not on file documented as of this encounter Visit Diagnoses Not on filedocumented in this encounter Care Teams Insurance Case Manager Relationship Specialty Start Date End Date Unknown, Provider PCP - General 03/17/20 documented as of this encounter
--- OUTSIDE RECORDS SUMMARY | 2024-07-19 08:12 | XMS_ITS | Encounter Summary ---
Author Organization [facility] Address [address] [place] [address] Care Team Providers Care Commission Sales Associate Name Role Phone Unknown, Provider Primary Care Provider Unavaila ble Reason for Visit * Reason Comments Sinusitis 2 weeks Cough Congestion Encounter Details Date Type Department Care Team (Late st Contact Info) Description 07/04/2021 9:40 AM COPIER FIELD SERVICE TECHNICIAN Office Visit [facility] [address] [phone] Provider, [facility] Acute frontal sinusitis, recurrence not specified (Primary Dx) Social History Tobacco Use Types [...] COVID-19? No / Unsure 07/04/2021 9:34 AM COPIER FIELD SERVICE TECHNICIAN documented as of this encounter Last Filed Vital Signs Vital Sign Reading Time Taken Comments Blood Pressure 112/80 07/04/2021 9:49 AM COPIER FIELD SERVICE TECHNICIAN Pulse 86 07/04/2021 9:49 AM COPIER FIELD SERVICE TECHNICIAN Temperature 36.7 ??C (98 ??F) 07/04/2021 9:49 AM COPIER FIELD SERVICE TECHNICIAN Respiratory Rate 18 07/04/2021 9:49 AM COPIER FIELD SERVICE TECHNICIAN Oxygen Saturation 97% 07/04/2021 9:49 AM COPIER FIELD SERVICE TECHNICIAN Inhaled Oxygen Concentration - - Weight 72.6 kg (160 lb) 07/04/2021 9:49 AM COPIER FIELD SERVICE TECHNICIAN Height 149.9 cm (4' 11 ) 07/04/2021 9:49 AM COPIER FIELD SERVICE TECHNICIAN Body Mass Index 32.32 07/04/2021 9:49 AM COPIER FIELD SERVICE TECHNICIAN documented in this encounter Patient Instructions * Patient Instructions* Karly Siegel, CLINICAL DATA RESEARCH-BINDERY PRODUCTION MANAGER - 07/04/2021 10:26 AM COPIER FIELD SERVICE TECHNICIAN Images from the original note were not included. Patient Education Sinusitis BUSINESS CHANGE MANAGER: Sinusitis is inflammation or infection of your sinuses. Sinusitis is most often caused by a virus. Acute sinusitis may last up to 12 weeks. Chronic sinusitis lasts longer than 12 weeks. Recurrent sinusitis means you have 4 or more infections in 1 year. Common signs and symptoms: ?? Fever ?? Pain, pressure, redness, or swelling around the forehead, cheeks, or eyes ?? Thick yellow or green discharge from your nose ?? Tenderness when you touch your face over your sinuses ?? Dry cough that happens mostly at night or when you lie down ?? Headache and face pain that is worse when you lean forward ?? Tooth pain, or pain when you chew Seek care immediately if: ?? You have trouble breathing or wheezing that is getting worse. ?? You have a stiff neck, a fever, or a bad headache. ?? You cannot open your eye. ?? Your eyeball bulges out or you cannot move your eye. ?? You are more sleepy than normal, or you notice changes in your ability to think, move, or talk. ?? You have swelling of your forehead or scalp. Call your doctor if: ?? You have vision changes, such as double vision. ?? Your eye and eyelid are red, swollen, and painful. ?? Your symptoms do not improve or go away after 10 days. ?? You have nausea and are vomiting. ?? Your nose is bleeding. ?? You have questions or concerns about your condition or care. Medicines: Your symptoms may go away on their own. Your healthcare provider may recommend watchful waiting for up to 10 days before starting antibiotics. You may need any of the following: ?? Acetaminophen decreases pain and fever. It is available without a doctor's order. Ask how much to take and how often to take it. Follow directions. Read the labels of all other medicines you are using to see if they also contain acetaminophen, or ask your doctor or pharmacist. Acetaminophen can cause liver damage if not taken correctly. Do not use more than 4 grams (4,000 milligrams) total of acetaminophen in one day. ?? NSAIDs , such as ibuprofen, help decrease swelling, pain, and fever. This medicine is available with or without a doctor's order. NSAIDs can cause stomach bleeding or kidney problems in certain people. If you take blood thinner medicine, always ask your healthcare provider if NSAIDs are safe foryou. Always read the medicine label and follow directions. ?? Nasal steroid sprays may help decrease inflammation in your nose and sinuses. ?? Decongestants help reduce swelling and drain mucus in the nose and sinuses. They may help you breathe easier. ?? Antihistamines help dry mucus in the nose and relieve sneezing. ?? Antibiotics help treat or prevent a bacterial infection. Self-care: ?? Rinse your sinuses as directed. Use a sinus rinse device to rinse your nasal passages with a saline (salt water) solution or distilled water. Do not use tap water. This will help thin the mucus inyour nose and rinse away pollen and dirt. It will also help reduce swelling so you can breathe normally. ?? Use a humidifier to increase air moisture in your home. This may make it easier for you to breathe and help decrease your cough. ?? Sleep with your head elevated. Place an extra pillow under your head before you go to sleep to help your sinuses drain. ?? Drink liquids as directed. Ask your healthcare provider how much liquid to drink each day and which liquids are best for you. Liquids will thin the mucus in your nose and help it drain. Avoid drinks that contain alcohol or caffeine. ?? Do not smoke, and avoid secondhand smoke. Nicotine and other chemicals in cigarettes and cigars can make your symptoms worse. Ask your healthcare provider for information if you currently smoke and need help to quit. E-cigarettes or smokeless tobacco still contain nicotine. Talk to your healthcare provider before you use these products. Prevent the spread of germs: ?? Wash your hands often with soap and water. Wash your hands after you use the bathroom, change a child's diaper, or sneeze. Wash your hands before you prepare or eat food. ?? Stay away from people who are sick. Some germs spread easily and quickly through contact. Follow up with your doctor as directed: You may be referred to an ear, nose, and throat specialist.Write down your questions so you remember to ask them during your visits. ?? Copyright [employer] 2020 Information is for End User's use only and may not be sold, redistributed or otherwise used for commercial purposes. All illustrations and images included in CareNotes?? are the copyrighted property of [employer] or [employer] The above information is an physiotherapy aide only. It is not intended as medical advice for individual conditions or treatments. Talk to your doctor, nurse or pharmacist before following any medical regimen to see if it is safe and effective for you. ER FIELD SERVICE TECHNICIAN documented in this encounter Progress Notes * Karly Siegel APRN-CNP - 07/04/2021 10:03 AM CST [facility] Karly Castellon is a 61 year old female who presents for evaluation: Chief Complaint Patient presents with ??? Sinusitis 2 weeks ??? Cough ??? Congestion Primary Care Physician is Provider Unknown. SUBJECTIVE: General The history is provided by the patient. This is a new problem. Episode onset: 4 weeks. The problem occurs constantly. The problem has not changed since onset.The pain is mild. Body Location: throat.Associated symptoms include headaches. Pertinent negatives include no chest pain, no abdominal pain and no shortness of breath. Associated symptoms comments: Ear pressure/popping, sinus pain/pressure, thick drainage. Treatments tried: Mucinex. The treatment provided mild relief. Past Medical History: Diagnosis Date ??? Patient denies medical problems There is no problem list on file for this patient. No current outpatient medications on file prior to visit. No current facility-administered medications on file prior to visit. Past Surgical History: Procedure Laterality Date ??? Hysterectomy ??? Tonsillectomy and Adenoidectomy Social History Socioeconomic History ??? Marital status: Spouse name: Not on file ??? Number of children: Not on file ??? Years of education: Not on file ??? Highest education level: Not on file Occupational History ??? Not on file Tobacco Use ??? Smoking status: Never Smoker ??? Smokeless tobacco: Never Used Vaping Use ??? Vaping Use: Never used Substance and Sexual Activity ??? Alcohol use: Not on file ??? Drug use: Not on file ??? Sexual activity: Not on file Other Topics Concern ??? Not on file Social History Narrative ??? Not on file Social Determinants of Health Financial Resource Strain: Not on file Food Insecurity: Not on file Transportation Needs: Not on file Physical Activity: Not on file Stress: Not on file Social Connections: Not on file Intimate Partner Violence: Not on file Housing Stability: Not on file No family history on file. Current Outpatient Medications Medication Sig Dispense Refill ??? azithromycin (ZITHROMAX) 250 MG tablet Take 2 tabs today, then 1 tab daily for next 4 days Reasons: sinusitis 6 tablet 0 No current facility-administered medications for this visit. Allergies Allergen Reactions ??? Penicillins Urticaria ??? Benadryl [Diphenhydramine] Palpitations REVIEW OF SYSTEMS: Review of Systems Constitutional: Negative for chills, fever and malaise/fatigue. HENT: Positive for congestion, ear pain and sinus pain. Negative for hearing loss and sore throat. Eyes: Negative for discharge and redness. Respiratory: Positive for cough. Negative for sputum production, shortness of breath, wheezing and stridor. Cardiovascular: Negative for chest pain. Gastrointestinal: Negative for abdominal pain, nausea and vomiting. Neurological: Positive for headaches. Negative for dizziness. OBJECTIVE: General appearance: alert, pleasant and in no distress. BP 112/80 (BP SITE: LEFT ARM, BP POSITION: SITTING, BP CUFF SIZE: 11) Pulse 86 Temp 98 ??F (36.7 ??C) (Oral) Resp 18 Ht 1.499 m (4' 11 ) Wt 72.6 kg (160 lb) SpO2 97% BMI 32.32 kg/m2 Physical Exam Vitals reviewed. HENT: Right Ear: Hearing, ear canal and external ear normal. A middle ear effusion is present. Left Ear: Hearing, ear canal and external ear normal. A middle ear effusion is present. Nose: Mucosal edema and rhinorrhea present. Right Sinus: Maxillary sinus tenderness present. Left Sinus: Maxillary sinus tenderness and frontal sinus tenderness present. Mouth/Throat: Pharynx: Uvula midline. Posterior oropharyngeal erythema present. No oropharyngeal exudate. Tonsils: No tonsillar exudate. Eyes: General: Lids are normal. Right eye: No discharge. Left eye: No discharge. Conjunctiva/sclera: Conjunctivae normal. Pupils: Pupils are equal, round, and reactive to light. Cardiovascular: Rate and Rhythm: Normal rate and regular rhythm. Heart sounds: Normal heart sounds. Pulmonary: Effort: Pulmonary effort is normal. Breath sounds: Normal breath sounds. No wheezing or rales. Lymphadenopathy: Head: Right side of head: No tonsillar adenopathy. Left side of head: No tonsillar adenopathy. Cervical: No cervical adenopathy. Skin: General: Skin is warm and dry. Neurological: Mental Status: She is alert and oriented to person, place, and time. Psychiatric: Mood and Affect: Affect normal. Judgment: Judgment normal. No results found for this or any previous visit (from the past 24 hour(s)). ASSESSMENT: Encounter Diagnosis Name Primary? Acute frontal sinusitis, recurrence not specified Yes PLAN: Orders Placed This Encounter ??? azithromycin (ZITHROMAX) 250 MG tablet Sig: Take 2 tabs today, then 1 tab daily for next 4 days Reasons: sinusitis Dispense: 6 tablet Refill: 0 I have spent a total of 15 minutes. Time was spent reviewing medical history, performing physical exam, documenting, counseling/educating, reviewing plan of care ER FIELD SERVICE TECHNICIAN documented in this encounter Plan of Treatment Not on file documented as of this encounter Visit Diagnoses Diagnosis Acute frontal sinusitis, recurrence not specified- Primary documented in this encounter Care Teams Commission Sales Associate Relationship Specialty Start Date End Date Unknown, Provider PCP - General 03/17/20 documented as of this encounter
--- OUTSIDE RECORDS SUMMARY | 2024-07-19 08:12 | XMS_ITS | Encounter Summary ---
Author Organization [facility] Address [address] [place] [address] Care Team Providers Care Customer Support Executive Name Role Phone Unavailable Primary Care Provider Unavailabl e Encounter Details Date Type Department Care Team (Latest Contact Info) Description 03/12/2020 Travel Social History Tobacco Use Types Packs/Day [...] have Coronavirus / COVID-19? No / Unsure 03/12/2020 1:55 PM CDT documented as of this encounter Plan of Treatment Not on file documented as of this encounter Visit Diagnoses Not on filedocumented in this encounter
--- OUTSIDE RECORDS SUMMARY | 2024-07-19 08:12 | XMS_ITS | Encounter Summary ---
Author Organization [facility] Address [address] [facility] [place] [address] Care Team Providers Care Sales Order Processor Name Role Phone Unknown, Provider Primary Care Provider Unavaila ble Encounter Details Date Type Department Care Team (Latest Contact Info) Description 07/03/2021 Travel Social History Tobacco Use Types Packs/Day [...] have Coronavirus / COVID-19? No / Unsure 07/03/2021 1:30 PM SENIOR ENVIRONMENTAL ENGINEER documented as of this encounter Plan of Treatment Not on file documented as of this encounter Visit Diagnoses Not on filedocumented in this encounter Care Teams Sales Order Processor Relationship Specialty Start Date End Date Unknown, Provider PCP - General 03/17/20 documented as of this encounter
--- OUTSIDE RECORDS SUMMARY | 2024-07-19 08:12 | XMS_ITS | Encounter Summary ---
Author Organization [facility] Address [address] [place] [address] Care Team Providers Care Sawmill Relief Worker Name Role Phone Unknown, Provider Primary Care Provider Unavaila ble Reason for Visit * Reason Onset Date Comments Patient Requested Call 07/16/2021 Encounter Details Date Type Department Care Team ([facility] st Contact Info) Description 07/16/2021 Telephone [facility] [email or web address] [facility] [address] [phone] Provider, [facility] Patient Requested Call Social History Tobacco Use Types Packs/Day Years [...] COVID-19? No / Unsure 07/04/2021 9:34 AM DIRECTOR EHS documented as of this encounter Miscellaneous Notes * Telephone Encounter - Giselle Sheridan - 07/16/2021 3:11 PM CST Who is calling? Self What is the reason for call? Patient was seen and treated 07/04/21 and was wondering if she could get a refill. Expected Response from the Clinic? Please call her at the above noted phone number. BRICKMASON SUPERVISOR called pt back. Pt stated increased congestion with it also causing pressure in ears. Doorshaker stated that she should try flonase, drink hot fluids, steam first, then consider additional tx's if that isunsuccessful. Pt. Stated she would try that first. Pt thanked us for the f/u call and voiced no additional questions or concerns. CTOR EHS documented in this encounter Plan of Treatment Not on file documented as of this encounter Visit Diagnoses Not on filedocumented in this encounter Care Teams Sawmill Relief Worker Relationship Specialty Start Date End Date Unknown, Provider PCP - General 03/17/20 documented as of this encounter
--- OUTSIDE RECORDS SUMMARY | 2024-07-19 08:13 | XMS_ITS | Encounter Summary ---
Author Organization [facility] Address [address] [place] [address]. [place] [address] [place] [address] Care Team Providers Care Hvac Mechanical Engineer Name Role Phone Chante Hamilton MD Primary Care Provider + Reason for Visit * Reason Onset Date Comments Medication 07/18/2024 Encounter Details Date Type Department Care Team (Late st Contact Info) Description 07/18/2024 Telephone [facility] Family Medicine - [place] [address] [address] Chante Hamilton MD [address] [facility] [address] [place] [phone] Medication Social History Tobacco Use Types Packs/Day Years Used Date Smoking Tobacco: Former Cigarettes Q uit: 1980 Passive Smoke Exposure: Past Smokeless Tobacco: Never Alcohol Use Standard Drinks/Week Comments Not Currently 0 (1 standard drink = 0.6 oz pur e alcohol) PHQ-2 Answer Date Recorded Patient Health Questionnaire-2 Score 0 07/07/2024 Comments Unknown Sex and Gender Information Value Date Recorded Sex Assigned at Not on file Legal Sex Female 5:18 PM CDT Gender Identity Not on file Sexual Orientation Not on file 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 Pharmacy is aware SHELLER * Chante Hamilton MD - 07/18/2024 11:29 AM CST Please notify. For diverticulitis so it should be three times daily. Thanks. SHELLER * Kerrie Serrato - 07/18/2024 10:53 AM CST Portia with [facility] called in to verify augmentin instructions. She is wanting to know if it should be 2 times a day instead of 3. Her callback # is [phone]. SHELLER documented in this encounter Plan of Treatment Upcoming Encounters Date Type Department Care Team (Late st Contact Info) Description 07/19/2024 1:00 PM CORN SHELLER [facility]ment [facility] [place] [place] [address] Chante Hamilton MD [address] [place] [address] [phone] 07/19/2024 2:30 PM CORN SHELLER Appointment [facility] [place] [address] Chante Hamilton MD [address] [place] [address] [phone] 07/26/2024 7:40 AM CORN SHELLER Laboratory Only [facility] Family Medicine - [place] [address] [place] [address] [phone] Chante Hamilton MD [address] [place] [address] [phone] 09/05/2024 10:15 AM CORN SHELLER Office Visit [facility] [address] [place] [address] Wilfrido Hobbs MD [facility], [address] [place] [address] documented as of this encounter Visit Diagnoses Not on filedocumented in this encounter Care Teams Hvac Mechanical Engineer Relationship Specialty Start Date End Date Chante Hamilton MD [address] [place] [address] PCP - General FAMILY PRACTICE 07/07/24 documented as of this encounter
--- OUTSIDE RECORDS SUMMARY | 2024-07-19 08:13 | XMS_ITS | Encounter Summary ---
Author Organization [facility] Address [address] [place] [address]. [place] [address] [place] [address] Care Team Providers Care Yarn Dumper Name Role Phone None, Provider Primary Care Provider Noea ble Encounter Details Date Type Department Care Team (Latest Contact Info) Description 05/15/2023 2:25 PM CDT - 05/15/2023 11:59 PM CDT Hospital Encounter [facility] [place] [address] William Melgoza MD,PHD Discharge Disposition: Home or Self Care (Routine Discharge) Social History Tobacco Use Types Packs/Day Years Used Date Smoking Tobacco: Former Cigarettes Q uit: 1979 Smokeless Tobacco: Never Alcohol Use Standard Drinks/Week Comments Not Currently 0 (1 standard drink = 0.6 oz pur e alcohol) Comments Unknown Sex and Gender Information Value Date Recorded Sex Assigned at Not on file Legal Sex Female 5:18 PM CDT Gender Identity Not on file Sexual Orientation Not on file 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 06/03/2021 Saccharomyces boulardii (FLORASTORMAX) 500 MG Pack 03/24/2022 vitamin E 180 MG (400 UNIT) capsule Take 1 capsule (180 mg total) by mouth daily. documented as of this encounter Plan of Treatment Upcoming Encounters Date Type Department Care Team (Late Contact Info) Description 07/19/2024 1:00 PM PSYCHIATRIC ASSISTANT Appointment [place] [place] [address] Chante Hamilton MD [address] [place] [phone] 07/19/2024 2:30 PM PSYCHIATRIC ASSISTANT Appointment [place] [address] [facility] [address] [place] [address] Chante Hamilton MD [address] [place], [place] [phone] 07/26/2024 7:40 AM PSYCHIATRIC ASSISTANT Laboratory Only [facility] Family Medicine - [place] [address] [place], [place] [phone] Chante Hamilton MD [address] [place], [place] [address] 09/05/2024 10:15 AM PSYCHIATRIC ASSISTANT Office Visit [facility] [address] [place] [address] Wilfrido Hobbs MD [address] [place], [place] [phone] documented as of this encounter Procedures Procedure Name Priority Date/Time Associated Diagnosis Comments UREA NITROGEN, BLOOD (BUN) QUANT Routine 05/15/2023 2:37 PM CDT Chest pain BERMEO (dyspnea on exertion) CREATININE Routine 05/15/2023 2:37 PM CDT Chest pain BERMEO (dyspnea on exertion) documented in this encounter Results * (ABNORMAL) CREATININE (05/15/2023 2:37 PM CDT) CREATININE S/P/B 0.79 0.55 - 1.02 MG/DL 05/15/2023 3:06 PM CDT [facility] GFR ESTIMATE 83(L) >90 ML/MIN/1.7 3 M2 05/15/2023 3:06 PM CDT [facility] Comment: NOTE: eGFR is not calculated for patients <18 years of age. This is an estimated GFR calculation using the new CKD EPI creatinine equation without race and so does not require a correction factor for race. This estimated GFR should not be used for calculating drug doses. 05/15/2023 2:37 PM CDT William Melgoza MD,PHD LABORATORY Final Re sult Performing Organization Address City/[facility]/ZIP Co de Phone Number [facility] [address] [place] [address], [place] [phone] * BUN (05/15/2023 2:37 PM CDT) BUN 16 7 - 18 MG/DL 05/15/2023 3:06 PM CDT [facility] 05/15/2023 2:37 PM CDT William Melgoza MD,PHD LABORATORY Final Re sult Performing Organization Address City/[facility]/ZIP Co de Phone Number [facility] [address] [place] [address], [place] [phone] documented in this encounter Visit Diagnoses Diagnosis Chest pain Chest pain, unspecified BERMOE (dyspnea on exertion) Other dyspnea and respiratory abnormality documented in this encounter Care Teams Yarn Dumper Relationship Specialty Start Date End Date None, Provider, PCP - General 04/01/22 07/06/24 documented as of this encounter
--- OUTSIDE RECORDS SUMMARY | 2024-07-19 08:13 | XMS_ITS | Encounter Summary ---
Author Organization [facility] Address [address] [place] [address]. [place] [address] [place] [address] Care Team Providers Care Pad Cutter Name Role Phone None, Provider Primary Care Provider Unavaila ble Reason for Visit * Reason Onset Date Comments Schedule Test 05/06/2022 Echo 06/02/22 an d SE 06/12/22 Encounter Details Date Type Department Care Team (Late st Contact Info) Description 05/06/2022 Telephone [facility] [address] [address] William Melgoza MD,PHD Schedule Test (Echo 06/02/22 and SE 06/12/22) Social History Tobacco Use Types Packs/Day Years Used Date Smoking Tobacco: Former Cigarettes Q uit: 1980 Smokeless Tobacco: Never Alcohol Use Standard Drinks/Week [...] as of this encounter Progress Notes * Octavia Marion - 05/06/2022 4:12 PM CDT Spoke with pt scheduled echo 06/02/22 and stress echo on 06/12/22 - pt self pay has talked to [employer] Financial assistance and all paperwork turned in. Message to Nasrin at [phone] testing scheduled. documented in this encounter Plan of Treatment Upcoming Encounters Date Type Department Care Team (Late st Contact Info) Description 07/19/2024 1:00 PM MAMMAL CONTROL AGENT Appointment [place] [address] [facility] [place] [address] Chante Hamilton MD [address] [place] [address] 07/19/2024 2:30 PM MAMMAL CONTROL AGENT Appointment [place] [place] [address] Chante Hamilton MD [address] [place] [address] 07/26/2024 7:40 AM MAMMAL CONTROL AGENT Laboratory Only [facility] Family Medicine - [place] [address] [place] [address] Chante Hamilton MD [address] [place] [address] 09/05/2024 10:15 AM MAMMAL CONTROL AGENT Office Visit [facility] [address] [place] [address] Wilfrido Hobbs MD [address] [place] [address] [place], [place] [address] documented as of this encounter Visit Diagnoses Not on filedocumented in this encounter Care Teams Pad Cutter Relationship Specialty Start Date End Date None, Provider, PCP - General 04/01/22 07/06/24 documented as of this encounter
--- OUTSIDE RECORDS SUMMARY | 2024-07-19 08:13 | XMS_ITS | Encounter Summary ---
Author Organization [facility] Address [address] [place] [address]. [place] [address] [place] [address] Care Team Providers Care Outsole Caser Name Role Phone Chante Simon MD Primary Care Provider + Reason for Visit * Reason Comments Mitral Valve Disorders 1yr Encounter Details Date Type Department Care Team (Late st Contact Info) Description 07/18/2024 12:30 PM AIRCRAFT PILOT [facility] [address] [place] [address] Wilfrido Hobbs MD [facility], [address] [place], [place] [phone] Mitral Valve Disorders (1yr) Social History Tobacco Use Types Packs/Day Years Used Date Smoking Tobacco: Former Cigarettes Q uit: 1980 Passive Smoke Exposure: Past Smokeless Tobacco: Never Tobacco Cessation:Counseling Given: Not Answered Alcohol Use Standard Drinks/Week Comments Not Currently [...] on file documented as of this encounter Last Filed Vital Signs Vital Sign Reading Time Taken Comments Blood Pressure 132/80 07/18/2024 12:23 PM AIRCRAFT PILOT Pulse 80 07/18/2024 12:23 PM AIRCRAFT PILOT Temperature - - Respiratory Rate - - Oxygen Saturation 96% 07/18/2024 12: 23 PM AIRCRAFT PILOT Inhaled Oxygen Concentration - - Weight 75.2 kg (165 lb 12.8 oz) 024 12:23 PM AIRCRAFT PILOT Height 149.9 cm (4' 11 ) 07/18/2024 12: 23 PM AIRCRAFT PILOT Body Mass Index 33.49 07/18/2024 12:23 PM AIRCRAFT PILOT documented in this encounter Progress Notes * Wilfrido Hobbs MD - 07/18/2024 12:30 PM CST Reason for Visit: Mitral Valve Disorders (1yr) History of Present Illness: Mrs. Castellon is a pleasant 64-year-old woman with a family history of early CAD (05/13/23 CTA with normal coronary arteries, calcium score 0), obesity class I, and mild mitral valve prolapse who presents for a follow up visit. 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 She had been doing well until Thursday when she had sustained palpitations, was seen at [facility]. She has been dealing with IBS, not sure if she has a gut infection. She is due to have an abdominal CT tomorrow. No chest discomfort. She is sometimes short of breath when she goes up and down the stairs. No edema, orthopnea or PND. Recommendations and Plan: Palpitations: Check a 7 day event monitor and an echo. Unclear if symptoms may be related to a GI infection. Will await labs including TSH, hemoglobin and BMP. Chest discomfort: The patient underwent exercise stress echocardiography 06/12/22 where she only exercised for 4 minutes and 36 seconds, no ischemia noted. Coronary CT angiography 05/13/23 with no plaque, calcium score 0, continue CAD risk factor modification. Dyspnea on exertion: Normal LV systolic function on transthoracic echocardiography with no significant structural heart disease. Mild mitral valve prolapse: Noted on echo 06/30/22, no significant regurgitaton. Can repeat an echoin 3 years. Family history of premature coronary artery disease: 05/13/23 CTA with normal coronary arteries, calcium score 0. Continue lifestyle modification including plant-based diet, regular exercise and weight loss. Obesity class I: Continue lifestyle modification. Her daughter is a metal expediter helping her with ideas for weight loss. Follow up in 1-2 months. Medications: Current Outpatient Medications: Cholecalciferol (VITAMIN D) 50 MCG (1999 UT) Cap, Take 1 tablet by mouth daily., Disp: , Rfl: Saccharomyces boulardii (FLORASTORMAX) 500 MG Pack, , Disp: , Rfl: vitamin C (ASCORBIC ACID) 1000 MG tablet, Take 1 tablet (1,000 mg total) by mouth daily., Disp: , Rfl: vitamin E 180 MG (400 UNIT) capsule, Take 1 capsule (180 mg total) by mouth daily., Disp: , Rfl: Review of patient's allergies indicates: Allergen Reactions Metronidazole Vomiting Penicillins Hives Diphenhydramine Hcl Palpitations Past Medical History: Diagnosis Date Mitral valve disorder Precordial pain Past Surgical History: Procedure Laterality Date REMOVE TONSILS/ADENOIDS,<12 Y/O SINUS SURGERY PROC UNLISTED TOTAL ABDOM HYSTERECTOMY 1989 Social History Tobacco Use Smoking status: Former Current packs/day: 0.00 Types: Cigarettes Quit date: 1979 Years since quittin.9 Passive exposure: Past Smokeless tobacco: Never Vaping Use Vaping status: Never Used Substance Use Topics Alcohol use: Not Currently Drug use: Never Family History Problem Relation Name Age of Onset Heart Attack Mother Open Heart Mother Heart Attack Father Open Heart Father Atrial fibrillation Sister Heart Attack Brother Heart Disease Brother Stroke Maternal Grandmother Heart Attack Maternal Grandfather No Known Problems Daughter No Known Problems Son Family Status Relation Name Status Mother at age 95 Father at age 86 Sister Alive, age 67y Brother at age 67 Brother Alive, age 61y MGM at age 60 MGF at age 65 PGM at age 82 PGF at age 78 Daughter Alive Son Alive No partnership data on file Review of Systems Constitutional: Negative for recent unintentional weight gain, recent unintentional weight loss andnew or significant fatigue. HENT: Negative for new or significant hearing loss. Eyes: Negative for blurred vision and double vision. Respiratory: Negative for cough, new or significant shortness of breath and snoring. Cardiovascular: See HPI. Positive for palpitations. Negative for chest pain, orthopnea, leg swelling and PND. Gastrointestinal: Positive for abdominal pain. Negative for heartburn, nausea, vomiting, blood in stool and melena. Genitourinary: Negative for dysuria. Musculoskeletal: Negative for myalgias and new or worsening joint stiffness/pain. Skin: Negative for rash. Neurological: Negative for tingling/numbness and focal weakness. Endo/Heme/Allergies: Negative for new or significant bruising/bleeding and polydipsia. Psychiatric/Behavioral: Negative for depression and new or significant memory loss. Vitals: 07/18/24 1223 BP: 132/80 Pulse: 80 Weight: 75.2 kg (165 lb 12.8 oz) Height: 1.499 m (4' 11 ) Body mass index is 33.49 kg/m??. Cardiac Exam Rate/Rhythm: Normal rate and regular rhythm. PMI: PMI is not displaced. Pulses: Carotid pulses are 2+ on the right side and 2+ on the left side. Radial pulses are 2+ on the right side and 2+ on the left side. Dorsalis pedis pulses are 2+ on the right side and 2+ on the left side. Posterior tibial pulses are 2+ on the right side and 2+ on the left side. Heart Sounds: Normal heart sounds. Normal S1 sounds. Normal S2 sounds. No gallop present. No S3. NoS4. Murmurs: No murmur present Negative for edema. Physical Exam Constitutional: No distress. Healthy Appearance. HENT: Oropharynx clear. Eyes: Conjunctivae normal. Neck: Neck supple. No JVD. Abdomen: Abdomen soft. Bowel sounds normal. No tenderness. No mass. Pulmonary: Effort normal. Breath sounds normal. No wheezes. Skin: Warm. No rash. No cyanosis. No clubbing. No xanthoma. Musculoskeletal: No kyphosis. Normal ROM. Neurological: Alert. Oriented x 3. Appropriate mood and affect. Normal motor skills. Normal gait. Comments: Diagnoses/Impression: 1. Chest discomfort 2. Mild mitral valve prolapse 3. Obesity, Class I, BMI 30-34.9 4. BERMEO (dyspnea on exertion) 5. Family history of early CAD 6. Palpitations Referring Provider: No ref. provider found PCP: CHANTE SIMON MD RAFT PILOT documented in this encounter Plan of Treatment Upcoming Encounters Date Type Department Care Team (Late st Contact Info) Description 07/19/2024 1:00 PM AIRCRAFT PILOT [place] [address] Chante Simon MD [address] [place] [phone] 07/19/2024 2:30 PM AIRCRAFT PILOT Appointment [place] [address] [facility] [place] [address] Chante Simon MD [address] [place] [address] [phone] 07/26/2024 7:40 AM AIRCRAFT PILOT Laboratory Only [facility] Family Medicine - [place] [address] [place] [phone] Chante Simon MD [address] [facility] [address] [place] [address] [phone] 09/05/2024 10:15 AM AIRCRAFT PILOT Office Visit [facility] [address] [place] [address] Wilfrido Hobbs MD Three [facility] [address] [place], [place] [phone] documented as of this encounter Visit Diagnoses Diagnosis Chest discomfort- Primary Other chest pain Mild mitral valve prolapse Mitral valve disorders Obesity, Class I, BMI 30-34.9 Obesity, unspecified BERMEO (dyspnea on exertion) Other dyspnea and respiratory abnormality Family history of early CAD Family history of ischemic heart disease Palpitations documented in this encounter Care Teams Outsole Caser Relationship Specialty Start Date End Date Chante Simon MD [address] [place] [address] [phone] PCP - General FAMILY PRACTICE 07/07/24 documented as of this encounter
--- OUTSIDE RECORDS SUMMARY | 2024-07-19 08:13 | XMS_ITS | Encounter Summary ---
Author Organization [facility] Address [address] [place] [address]. [place] [address] [place] [address] Care Team Providers Care Safety Coordinator Name Role Phone Chante Simon MD Primary Care Provider + Reason for Referral * Imaging (Emergency) - Authorized Specialty Diagnoses / Procedures Referred By Contac t Referred To Contact RADIOLOGY Diagnoses Acute diverticulitis Procedures CT ABD+PEL WWO CON Chante Simon MD [address] [place] [phone] Phone: tel: fax: Referral ID Status Reason Start Date Expiration Date V isits Requested Visits Authorized [id number] Authorized 07/18/2024 07/19/2025 1 1 ISTRY QUALITY CONTROL ANALYST Reason for Visit * Reason Comments ER F/U Here for ER f/u. She has an appt with basket filler today also. AH ER didn't know what was wrong. She went to ER on Thursday. Palpitations. Also having gas and stool is soft and loose. Colon is rumbling. Encounter Details Date Type Department Care Team (Late Contact Info) Description 07/18/2024 9:50 AM CHEMISTRY QUALITY CONTROL ANALYST Office Visit [facility] Family Medicine - [place] [address] [place] [phone] Chante Simon MD [address] [place] [phone] ER F/U (Here for ER f/u. She has an appt with basket filler today also. AH ER didn't know what was wrong. She went to ER on Thursday. Palpitations. Also having gas and stool is soft and loose. Colon is rumbling. ) Social History Tobacco Use Types Packs/Day Years Used Date Smoking Tobacco: Former Cigarettes Q uit: 1979 Passive Smoke Exposure: Past Smokeless Tobacco: Never Tobacco Cessation:Counseling Given: No Alcohol Use Standard Drinks/Week Comments Not Currently [...] Sign Reading Time Taken Comments Blood Pressure 144/90 07/18/2024 9:50 AM CHEMISTRY QUALITY CONTROL ANALYST Pulse 74 07/18/2024 9:42 AM CHEMISTRY QUALITY CONTROL ANALYST Temperature 36.7 ??C (98 ??F) 07/18/2024 9:42 AM CHEMISTRY QUALITY CONTROL ANALYST Respiratory Rate - - Oxygen Saturation 97% 07/18/2024 9:42 AM CHEMISTRY QUALITY CONTROL ANALYST Inhaled Oxygen Concentration - - Weight 75.4 kg (166 lb 3.2 oz) 07/18/2024 9:42 A M CHEMISTRY QUALITY CONTROL ANALYST Height 149.9 cm (4' 11 ) 07/18/2024 9:42 AM CHEMISTRY QUALITY CONTROL ANALYST Body Mass Index 33.57 07/18/2024 9:42 AM CHEMISTRY QUALITY CONTROL ANALYST documented in this encounter Patient Instructions * Attachments The following attachments cannot be sent through Care Everywhere. * Diverticulitis (Indian) documented in this encounter Progress Notes * Chante Simon MD - 07/18/2024 9:50 AM CSTSummary: acute SUBJECTIVE: Karly Castellon is a 64-year-old year old female who presents for acute concern, ER follow up for palpitations. Often has palpitations with any infection or illness. On Thursday morning noted fluttering in the chest. Lasted all day. Thought dehydration and noted upset stomach and cramping. It wasn't improving.Went to the ED- [facility]. They did blood work which she provides today. They also did EKG which is not available currently. Also had CXR which was reassuring according to patient. WBC elevated. Pt wonders about GI infection. Pain across the low abdomen. Feels bloating. Now also has loose stools- still has some form, up to 5 per day. No blood yet, but did have this in May. At that time no imaging was done but she was given a course of Cipro which resolved symptoms. 2 months later she developed similar symptoms. Her episode in May also involve blood in the stool. Notably, she is seeing cardiology later today and plans to discuss her fluttering with them. Patient is allergic to Flagyl which seemed to cause vomiting. Patient was able to take penicillins until her late 20s when she had 1 episode of hives while taking penicillin. After that time she has not attempted it again. She is unable to take Benadryl as it causes palpitations. No problems updated. Review of Systems Per HPI Patient's past medical history, medications, allergies, family history, and social history reviewedand updated in Epic chart as necessary. Patient Active Problem List Diagnosis Mitral valve disorder Pulmonary nodules Current Outpatient Medications: Cholecalciferol (VITAMIN D) 50 MCG (1999 UT) Cap, Take 1 tablet by mouth daily., Disp: , Rfl: Saccharomyces boulardii (FLORASTORMAX) 500 MG Pack, , Disp: , Rfl: vitamin E 180 MG (400 UNIT) capsule, Take 1 capsule (180 mg total) by mouth daily., Disp: , Rfl: vitamin C (ASCORBIC ACID) 1000 MG tablet, Take 1 tablet (1,000 mg total) by mouth daily., Disp: , Rfl: Allergies Allergen Reactions Metronidazole Vomiting Penicillins Hives Diphenhydramine Hcl Palpitations Past Surgical History: Procedure Laterality Date REMOVE TONSILS/ADENOIDS,<12 Y/O SINUS SURGERY PROC UNLISTED TOTAL ABDOM HYSTERECTOMY 1989 OBJECTIVE: Filed Vitals: 07/18/24 0942 07/18/24 0950 BP: (!) 160/100 (!) 144/90 Pulse: 74 Temp: 98 ??F (36.7 ??C) TempSrc: Temporal SpO2: 97% Weight: 75.4 kg (166 lb 3.2 oz) Height: 1.499 m (4' 11 ) Physical Exam No visits with results within 10 Day(s) from this visit. Latest known visit with results is: Hospital Outpatient Visit on 05/15/2023 Component Date Value Ref Range Status BUN 05/15/2023 16 7 - 18 MG/DL Final CREATININE S/P/B 05/15/2023 0.79 0.55 - 1.02 MG/DL Final GFR ESTIMATE 05/15/2023 83 (L) >90 ML/MIN/1.73 M2 Final Comment: NOTE: eGFR is not calculated for patients <18 years of age. This is an estimated GFR calculation using the new CKD EPI creatinine equation without race and so does not require a correction factor for race. This estimated GFR should not be used for calculating drug doses. ] ASSESSMENT & PLAN: Karly Castellon is a 64-year-old female presents to discuss with following. Presumed acute diverticulitis. Ordered CT scan to confirm. This will be performed tomorrow. Patientwill initiate n.p.o. status with just clear liquids. Discussed treatment options. She is allergic to both Flagyl and Augmentin which limits her options. May need to have her see infectious disease depending on how she tolerates her regimen. We discussed the risks of trying penicillin despite her allergic reaction of hives in the past. It is possible the hives were not allergy related but due to illness in light of her previously being able to take penicillin prior to that date. She will pretreat with an antihistamine-Colette which she can tolerate to see whether we can prevent hives as a sideeffect. Palpitations. Patient will discuss this with cardiology as I suspect she will need some additional testing. I personally spent a total of 35 minutes on the day of the encounter. This includes vqdm-ag-jura and ser-yaav-cf-face time I provided on the day of the encounter & excludes time spent performing separately reportable services. Lab: None Specified No follow-ups on file. CHANTE SIMON MD Family Practice ISTRY QUALITY CONTROL ANALYST documented in this encounter Plan of Treatment Upcoming Encounters Date Type Department Care Team (Late st Contact Info) Description 07/19/2024 1:00 PM CHEMISTRY QUALITY CONTROL ANALYST [facility]ment [facility] [address] Chante Simon MD [address] [place] [phone] 07/19/2024 2:30 PM CHEMISTRY QUALITY CONTROL ANALYST [facility]ointment [facility] [address] Chante Simon MD [address] [place] [phone] 07/26/2024 7:40 AM CHEMISTRY QUALITY CONTROL ANALYST Laboratory Only [facility] Family Medicine - [place] [address] [place] [address] [phone] Chante Simon MD [address] [facility] [address] [place] [address] [phone] 09/05/2024 10:15 AM CHEMISTRY QUALITY CONTROL ANALYST Office Visit [facility] [address] [place] [address] Wilfrido Hobbs MD [address] [place], [place] [phone] Scheduled Orders Name Type Priority Associated Diagnoses Orde r Schedule CT ABD+PEL WWO CON CT STAT Acute diverticulitis Expected: 07/18/2024, Expires: 07/18/2025 documented as of this encounter Visit Diagnoses Diagnosis Acute diverticulitis- Primary documented in this encounter Care Teams Safety Coordinator Relationship Specialty Start Date End Date Chante Simon MD [address] [place] [phone] PCP - General FAMILY PRACTICE 07/07/24 documented as of this encounter
--- OUTSIDE RECORDS SUMMARY | 2024-07-19 08:13 | XMS_ITS | Encounter Summary ---
Author Organization [facility] Address [address] [place] [address]. [place] [address] [place] [address] Care Team Providers Care Electro Mechanical Assembler Name Role Phone None, Provider Primary Care Provider Noea ble Encounter Details Date Type Department Care Team (Latest Contact Info) Description 05/15/2023 Travel Social History Tobacco Use Types Packs/Day [...] on file documented as of this encounter Plan of Treatment Upcoming Encounters Date Type Department Care Team (Late st Contact Info) Description 07/19/2024 1:00 PM SET UP MECHANIC COATING MACHINES [place]ment [place] [address] Chante Hamilton MD [address] [place] [phone] 07/19/2024 2:30 PM SET UP MECHANIC COATING MACHINES App[place]ment [facility] [address] [place], [place] 86[address] Chante Hamilton MD [address] [facility] [address] [place] [address] 07/26/2024 7:40 AM SET UP MECHANIC COATING MACHINES Laboratory Only [facility] Family Medicine - [place] [address] [place], [place] [address] Chante Hamilton MD [address] [place], [place] [address] 09/05/2024 10:15 AM SET UP MECHANIC COATING MACHINES Office Visit [facility] [address] [place] [address] Wilfrido Hobbs MD [facility], [address] [place] [address] documented as of this encounter Visit Diagnoses Not on filedocumented in this encounter Care Teams Electro Mechanical Assembler Relationship Specialty Start Date End Date None, Provider, PCP - General 04/01/22 07/06/24 documented as of this encounter
--- OUTSIDE RECORDS SUMMARY | 2024-07-19 08:13 | XMS_ITS | Encounter Summary ---
Author Organization [facility] Address [address] [place] [address]. [place] [address] [place] [address] Care Team Providers Care J2Ee Programmer Name Role Phone None, Provider Primary Care Provider Unavaila ble Reason for Visit * Reason Onset Date Comments Results 07/01/2022 Encounter Details Date Type Department Care Team ([facility] st Contact Info) Description 07/01/[address] [address] Kandace Velásquez, RN Results Social History Tobacco Use Types Packs/Day Years [...] file Not on file Not on file COVID-19 Exposure Response Date Recorded In the last 10 days, have yo u been in contact with someone who was confirmed or suspected to have Coronavirus/COVID-19? No / Unsure 06/30/2022 7:36 AM LEGAL ACTIVITY ADJUDICATOR documented as of this encounter Progress Notes * Kandace Velásquez RN - 07/01/2022 3:03 PM CST SUMMARY: ++++++++++++++++++++++++++++++++++++ The left ventricular size is normal. Estimated left ventricular ejection fraction is 65-70%. Left ventricular diastolic function is abnormal (grade 1 - impaired relaxation). The right ventricular size is normal. Right ventricular systolic function is normal. ?? Patient informed of the response and v/u. Patient had no further questions. L ACTIVITY ADJUDICATOR documented in this encounter Plan of Treatment Upcoming Encounters Date Type Department Care Team (Late st Contact Info) Description 07/19/2024 1:00 PM LEGAL ACTIVITY ADJUDICATOR Appointment [facility] [address] [facility] [address] [place], [place] [phone] Chante Hamilton MD [address] [place] [phone] 07/19/2024 2:30 PM LEGAL ACTIVITY ADJUDICATOR [facility]ointment [facility] [place] [address] Chante Hamilton MD [address] [place] [address] [phone] 07/26/2024 7:40 AM LEGAL ACTIVITY ADJUDICATOR Laboratory Only [facility] Family Medicine - [place] [address] [place], [place] [address] Chante Hamilton MD [address] [place] [address] [phone] 09/05/2024 10:15 AM LEGAL ACTIVITY ADJUDICATOR Office Visit [facility] [address] [place] [address] Wilfrido Hobbs MD [address] [facility] [address] [place], [place] [phone] documented as of this encounter Visit Diagnoses Not on filedocumented in this encounter Care Teams J2Ee Programmer Relationship Specialty Start Date End Date None, Provider, PCP - General 04/01/22 07/06/24 documented as of this encounter
--- OUTSIDE RECORDS SUMMARY | 2024-07-19 08:13 | XMS_ITS | Encounter Summary ---
Author Organization [facility] Address [address] [place] [address]. [place] [address] [place] [address] Care Team Providers Care Plant Engineering Supervisor Name Role Phone None, Provider Primary Care Provider Unavaila ble Encounter Details Date Type Department Care Team (Late Contact Info) Description 08/29/2022 [facility], [address] [address] Scanned, Doc Pccl Social History Tobacco Use Types Packs/Day Years [...] (Late Contact Info) Description 07/19/2024 1:00 PM COFFEE FARMER Appointment [facility] [place] [address] Chante Hamilton MD [address] [place] [address] [phone] 07/19/2024 2:30 PM COFFEE FARMER [facility] [address] Chante Hamilton MD [address] [place] [address] 07/26/2024 7:40 AM COFFEE FARMER Laboratory Only [facility] Family Medicine - [place] [address] [place] [address] Chante Hamilton MD [address] [place] [address] 09/05/2024 10:15 AM COFFEE FARMER Office Visit [facility] [address] [place] [address] Wilfrido Hobbs MD Three [facility] [address] [place] [address] documented as of this encounter Visit Diagnoses Not on filedocumented in this encounter Care Teams Plant Engineering Supervisor Relationship Specialty Start Date End Date None, Provider, PCP - General 04/01/22 07/06/24 documented as of this encounter
--- OUTSIDE RECORDS SUMMARY | 2024-07-19 08:13 | XMS_ITS | Clinical Summary ---
Author Organization [facility] Address [address] [place] [address]. [place] [address] [place] [address] Care Team Providers Care Supply Chain Development Manager Name Role Phone Chante Hamilton MD Primary Care Provider + Allergies Active Allergy Reactions Criticality Noted Date Comments Diphenhydramine Hcl Palpitations Low 04/04/2022 Metronidazole Vomiting 07/07/2024 Penicillins Hives 04/04/2022 Medications Cholecalciferol (VITAMIN D) 50 MCG (1999 UT) Cap Take 1 tablet by mouth daily. 06/03/20 21 Active vitamin E 180 MG (400 UNIT) capsule Take 1 capsule (180 mg total) by mouth daily. Active Saccharomyces boulardii (FLORASTORMAX) 500 MG Pack 03/24/20 22 Active amoxicillin-clavul anate (AUGMENTIN) 875-125 MG tabletIndications: Acute diverticulitis Take 1 tablet (875 mg total) by mouth 3 (three) times daily for 10 days. Pretreat with antoni to prevent hives 30 tablet 07/18/20 24 Active vitamin C (ASCORBIC ACID) 250 MG tablet Take 1 tablet (250 mg total) by mouth daily. 024 Discontinued Active Problems Problem Noted Date Diagnosed Date Pulmonary nodules 07/07/2024 Overview (07/07/2024): Found incidentally on CTA chest in May 2023. Recommended repeat in 12 months. Assessment & Plan (07/07/2024 10:10 AM VP PUBLIC RELATIONS): Ordered repeat CT of the chest without contrast to evaluate pulmonary nodules. Mitral valve disorder 04/04/2022 Overview (07/07/2024): She does follow with cardiology, Dr. Faby Mckeon. Sees him annually. Encounters Date Type Department Care Team Description 07/18/2024 12:30 PM VP PUBLIC RELATIONS Office Visit [facility] [address] [place] [address] Wilfrido Hobbs MD Mitral Valve Disorders (1yr) 07/18/2024 9:50 AM VP PUBLIC RELATIONS Office Visit [facility] [address] [place], [place] [phone] Chante Hamilton MD ER F/U (Here for ER f/u. She has an appt with outsole cementer machine today also. AH ER didn't know what was wrong. She went to ER on Thursday. Palpitations. Also having gas and stool is soft and loose. Colon is rumbling. ) 07/18/2024 Orders Only [facility] [address] [facility] [address] [place] [address] [place] [address] Wilfrido Hobbs MD 07/18/[address] [place] [address] Chante Hamilton MD Medication 07/18/2024 Travel 07/15/2024 Scan [employer] INFO [employer] Scanned, Doc Med Group Lab (SCAN) 07/07/2024 9:30 AM VP PUBLIC RELATIONS Office Visit [facility] [address] [facility] [address] [place] [address] Chante Hamilton MD New Patient (Here to get established.) 07/07/2024 Travel from Last 3 Months Immunizations Name Administration Dates Next Due Tdap (Generic) 03/17/2020 Family History Medical History Relation Comments Heart Attack Brother 1 Heart Disease Brother 2 No Known Problems Daughter Heart Attack Father Open Heart Father Heart Attack Maternal Grandfather Stroke Maternal Grandmother Heart Attack Mother Open Heart Mother Atrial fibrillation Sister No Known Problems Son Relation Status Comments Brother 1 (Age 67) Brother 2 Alive Daughter Alive Father (Age 86) Maternal Grandfather (Age 65) Maternal Grandmother (Age 60) Mother (Age 95) Paternal Grandfather (Age 78) Paternal Grandmother (Age 82) Sister Alive Son Alive Social History Tobacco Use Types Packs/Day Years [...] file Not on file Not on file Last Filed Vital Signs Vital Sign Reading Time Taken Comments Blood Pressure 132/80 07/18/2024 12:23 PM VP PUBLIC RELATIONS Pulse 80 07/18/2024 12:23 PM VP PUBLIC RELATIONS Temperature 36.7 ??C (98 ??F) 07/18/2024 9:42 AM VP PUBLIC RELATIONS Respiratory Rate 20 05/13/2023 1:45 PM CDT Oxygen Saturation 96% 07/18/2024 12: 23 PM VP PUBLIC RELATIONS Inhaled Oxygen Concentration - - Weight 75.2 kg (165 lb 12.8 oz) 024 12:23 PM VP PUBLIC RELATIONS Height 149.9 cm (4' 11 ) 07/18/2024 12: 23 PM VP PUBLIC RELATIONS Body Mass Index 33.49 07/18/2024 12:23 PM VP PUBLIC RELATIONS Plan of Treatment Upcoming Encounters Date Type Department Care Team (Late st Contact Info) Description 07/19/2024 1:00 PM VP PUBLIC RELATIONS [facility]ment [facility] [place] [address] Chante Hamilton MD [address] [place] [address] [phone] 07/19/2024 2:30 PM VP PUBLIC RELATIONS Appointment [place] [address] [facility] [place] [address] Chante Hamilton MD [address] [place], [place] [phone] 07/26/2024 7:40 AM VP PUBLIC RELATIONS Laboratory Only [facility] Family Medicine - [place] [address] [place], [place] [address] Chante Hamilton MD [address] [place], [place] [phone] 09/05/2024 10:15 AM VP PUBLIC RELATIONS Office Visit [facility] [address] [place], [place] [phone] Wilfrido Hobbs MD [address] [place] [address] Health Maintenance Due Date Last Done Comments Colorectal Cancer Screening Colonoscopy (10 Years) 1959 Pneumococcal Vaccine: 65+ Ye ars (1 of 2 - PCV) 1965 Pneumococcal Vaccine: Pediat rics (0 to 5 Years) and At-Risk Patients (6 to 64 Years) (1 of 2 - PCV) 1965 Hepatitis C 1977 Mammogram Screening 1999 Zoster Vaccines (1 of 2) 2009 RSV Immunization or 60+ Years (1 - Risk 60-74 years 1-dose series) 2019 COVID-19 Vaccine (2023-2 5 season) 2024 Dexa Scan (General) 2024 Influenza Adult (#1) 2024 DTaP, Tdap and Td Vaccines ( 2 - Td or Tdap) 03/17/2030 03/17/2020 Meningococcal Vaccine Aged Out No daniel lakisha eligible based on patient's age to complete this topic RSV Immunizations Under 20 Months Aged Out No longer eligible based on patient's age to complete this topic Procedures Procedure Name Priority Date/Time Associated Diagnosis Comments OUTSIDE PT/INR (SCAN ORDER) 07/15/2024 OUTSIDE LAB (SCAN ORDER) 07/15/2024 OUTSIDE LAB (SCAN ORDER) 07/15/2024 from Last 3 Months Results * OUTSIDE PT/INR (SCAN ORDER) (07/15/2024) 07/15/2024 [facility] Scanned SCANNING Final Resu lt * OUTSIDE LAB (SCAN ORDER) (07/15/2024) Only the most recent of2 resultswithin the time period is included. 07/15/2024 [facility] Scanned SCANNING Final Resu lt from Last 3 Months Insurance MEDICARE Care Teams Supply Chain Development Manager Relationship Specialty Start Date End Date Chante Hamilton MD [address] [place] [phone] PCP - General FAMILY PRACTICE 07/07/24
--- OUTSIDE RECORDS SUMMARY | 2024-07-19 08:13 | XMS_ITS | Encounter Summary ---
Author Organization [facility] Address [address] [place] [address]. [place] [address] [place] [address] Care Team Providers Care Mirror Silverer Name Role Phone None, Provider Primary Care Provider Noea ble Encounter Details Date Type Department Care Team (Latest Contact Info) Description 05/13/2023 Travel Social History Tobacco Use Types Packs/Day [...] st Contact Info) Description 07/19/2024 1:00 PM DIRECTOR OF SPA AND GUEST EXPERIENCE [place]ment [place] [address] Chante Hamilton MD [address] [place] [phone] 07/19/2024 2:30 PM DIRECTOR OF SPA AND GUEST EXPERIENCE [facility]ment [facility] [address] [place], [place] [address] Chante Hamilton MD [address] [place] [address] 07/26/2024 7:40 AM DIRECTOR OF SPA AND GUEST EXPERIENCE Laboratory Only [facility] Family Medicine - [place] [address] [place], [place] [address] Chante Hamilton MD [address] [place], [place] [address] 09/05/2024 10:15 AM DIRECTOR OF SPA AND GUEST EXPERIENCE Office Visit [facility] [address] [place] [address] Wilfrido Hobbs MD [facility], [address] [place] [address] documented as of this encounter Visit Diagnoses Not on filedocumented in this encounter Care Teams Mirror Silverer Relationship Specialty Start Date End Date None, Provider, PCP - General 04/01/22 07/06/24 documented as of this encounter
--- OUTSIDE RECORDS SUMMARY | 2024-07-19 08:13 | XMS_ITS | Encounter Summary ---
Author Organization [facility] Address [address] [place] [address]. [place] [address] [place] [address] Care Team Providers Care Visual And Stock Associate Name Role Phone None, Provider Primary Care Provider Unavaila ble Reason for Visit * Reason Onset Date Comments Schedule Test 01/13/2023 Coronary cta Encounter Details Date Type Department Care Team (Late st Contact Info) Description 01/13/2023 Telephone [facility] THREE [facility], [address] [address] William Melgoza MD,PHD Schedule Test (Coronary cta) Social History Tobacco Use Types Packs/Day Years [...] suspected to have Coronavirus/COVID-19? No / Unsure 01/12/2023 1:39 PM CDT documented as of this encounter Progress Notes * Daily Perez RN - 01/14/2023 10:17 AM CDTAddended by: DAILY PEREZ on: 01/14/2023 10:17 AM Modules accepted: Orders * Daily Perez RN - 01/14/2023 10:17 AM CDT Rx sent * Octavia Marion - 01/14/2023 9:11 AM CDT Scheduled Mar 06, 2023 at 10:30 am * Octavia Marion - 01/13/2023 3:47 PM CDT Spoke with pt ok to schedule she will be calling [facility] financial assistance Metoprolol tartrate 100mg will be called to [facility] in [place] LM for Ana * Octavia Marion - 01/13/2023 11:20 AM CDT LM for pt to call office * Octavia Marion - 01/13/2023 11:20 AM CDT ----- Message from MATA Medrano sent at 01/12/2023 2:44 PM CDT ----- Coronary CTA Dx: CP, BERMEO Patient is self pay, she is going to call [facility] to set up a payment schedule. Not sure if she has to have the testing scheduled prior. documented in this encounter Plan of Treatment Upcoming Encounters Date Type Department Care Team (Late st Contact Info) Description 07/19/2024 1:00 PM INTERSTATE BUS DRIVER Appointment [facility] [place] [address] Chante Hamilton MD [address] [place] [address] 07/19/2024 2:30 PM INTERSTATE BUS DRIVER Appointment [address] [facility] [address] [facility] [place] [address] Chante Hamilton MD [address] [place], [place] [address] 07/26/2024 7:40 AM INTERSTATE BUS DRIVER Laboratory Only [facility] Family Medicine - [place] [address] [place], [place] [address] Chante Hamilton MD [address] [place] [address] 09/05/2024 10:15 AM INTERSTATE BUS DRIVER Office Visit [facility] [address] [place] [address] Wilfrido Hobbs MD Three [facility] [address] [place], [place] [id number] documented as of this encounter Visit Diagnoses Not on filedocumented in this encounter Care Teams Visual And Stock Associate Relationship Specialty Start Date End Date None, Provider, PCP - General 04/01/22 07/06/24 documented as of this encounter
--- OUTSIDE RECORDS SUMMARY | 2024-07-19 08:13 | XMS_ITS | Encounter Summary ---
Author Organization [facility] Address [address] [place] [address]. [place] [address] [place] [address] Care Team Providers Care Spiral Tube Winder Name Role Phone None, Provider Primary Care Provider Noea ble Encounter Details Date Type Department Care Team (Latest Contact Info) Description 06/12/2022 Travel Social History Tobacco Use Types Packs/Day [...] suspected to have Coronavirus/COVID-19? No / Unsure 06/12/2022 10:04 AM CHRISTIAN SCIENCE NURSE documented as of this encounter Plan of Treatment Upcoming Encounters Date Type Department Care Team (Late st Contact Info) Description 07/19/2024 1:00 PM CHRISTIAN SCIENCE NURSE [facility]oint[address] [facility] [place] [address] Chante Hamilton MD [address] [place] [address] 07/19/2024 2:30 PM CHRISTIAN SCIENCE NURSE [address]oint[address] [facility] [address] [address] [facility] [place] [address] Chante Hamilton MD [address] [place] [address] 07/26/2024 7:40 AM CHRISTIAN SCIENCE NURSE Laboratory Only [facility] Family Medicine - [place] [address] [place] [address] Chante Hamilton MD [address] [place] [address] 09/05/2024 10:15 AM CHRISTIAN SCIENCE NURSE Office Visit [facility] [address] [place] [address] Wilfrido oHbbs MD Three [facility] [address] [place] [address] documented as of this encounter Visit Diagnoses Not on filedocumented in this encounter Care Teams Spiral Tube Winder Relationship Specialty Start Date End Date None, Provider, PCP - General 04/01/22 07/06/24 documented as of this encounter
--- OUTSIDE RECORDS SUMMARY | 2024-07-19 08:13 | XMS_ITS | Encounter Summary ---
Author Organization [facility] Address [address] [place] [address]. [place] [address] [place] [address] Care Team Providers Care Executive Recruiter Name Role Phone None, Provider Primary Care Provider Ryan ble Encounter Details Date Type Department Care Team (Latest Contact Info) Description 01/12/2023 Travel Social History Tobacco Use Types Packs/Day [...] st Contact Info) Description 07/19/2024 1:00 PM PERSONAL COMPUTER SPECIALIST [facility]ointment [facility] [address] [place], [place] [address] Chante Hamilton MD [address] [place] [address] 07/19/2024 2:30 PM PERSONAL COMPUTER SPECIALIST [facility]ointment [facility] [address] [facility] [place] [address] Chante Hamilton MD [address] [place] [address] 07/26/2024 7:40 AM PERSONAL COMPUTER SPECIALIST Laboratory Only [facility] Family Medicine - [place] [address] [place], [place] [address] Chante Hamilton MD [address] [place] [address] 09/05/2024 10:15 AM PERSONAL COMPUTER SPECIALIST Office Visit [facility] [address] [place] [address] Wilfrido Hobbs MD [facility] [address] [place] [address] documented as of this encounter Visit Diagnoses Not on filedocumented in this encounter Care Teams Executive Recruiter Relationship Specialty Start Date End Date None, Provider, PCP - General 04/01/22 07/06/24 documented as of this encounter
--- OUTSIDE RECORDS SUMMARY | 2024-07-19 08:13 | XMS_ITS | Encounter Summary ---
Author Organization [facility] Address [address] [place] [address]. [place] [address] [place] [address] Care Team Providers Care Herpetologist Name Role Phone None, Provider Primary Care Provider Unavaila ble Reason for Visit * Reason Onset Date Comments FYI 04/14/2022 for [facility] [place] Assistance Encounter Details Date Type Department Care Team (Late st Contact Info) Description 04/14/2022 Telephone [facility] THREE [facility], [address] [address] William Melgoza MD,PHD FYI (LM for [facility] Financial Assistance) Social History Tobacco Use Types Packs/Day Years [...] suspected to have Coronavirus/COVID-19? No / Unsure 04/04/2022 1:58 PM CDT documented as of this encounter Progress Notes * Octavia Marion - 04/14/2022 10:22 AM CDT Still waiting to hear from [facility] Financial Assistance to schedule SE and Echo - LM for Meghna Malone to call call pt and myself with update on approval documented in this encounter Plan of Treatment Upcoming Encounters Date Type Department Care Team (Late st Contact Info) Description 07/19/2024 1:00 PM ACUTE CARE ASSISTANT Appointment [facility] [address] [facility] [place] [address] Chante Hamilton MD [address] [place] [address] 07/19/2024 2:30 PM ACUTE CARE ASSISTANT [facility]ointment [facility] [address] [facility] [place] [address] Chante Hamilton MD [address] [place] [address] 07/26/2024 7:40 AM ACUTE CARE ASSISTANT Laboratory Only [facility] Family Medicine - [place] [address] [place] [address] Chante Hamilton MD [address] [place] [address] 09/05/2024 10:15 AM ACUTE CARE ASSISTANT Office Visit [facility] [address] [place] [address] Wilfrido Hobbs MD [address] [place], [place] [address] documented as of this encounter Visit Diagnoses Not on filedocumented in this encounter Care Teams Herpetologist Relationship Specialty Start Date End Date None, Provider, PCP - General 04/01/22 07/06/24 documented as of this encounter
--- OUTSIDE RECORDS SUMMARY | 2024-07-19 08:13 | XMS_ITS | Encounter Summary ---
Author Organization [facility] Address [address] [place] [address]. [place] [address] [place] [address] Care Team Providers Care Laborer Shaft Sinking Name Role Phone None, Provider Primary Care Provider Unavaila ble Reason for Visit * Reason Comments Chest Pain Breathing Problem 1 month follow up Encounter Details Date Type Department Care Team (Late st Contact Info) Description 07/04/2022 9:00 AM MANAGER SUPPLY CHAIN Office Visit [facility] [address] [address] William Melgoza MD,PHD Chest Pain; Breathing Problem (1 month follow up ) Social History Tobacco Use Types Packs/Day [...] suspected to have Coronavirus/COVID-19? No / Unsure 07/04/2022 8:38 AM MANAGER SUPPLY CHAIN documented as of this encounter Last Filed Vital Signs Vital Sign Reading Time Taken Comments Blood Pressure 126/78 07/04/2022 8:42 AM MANAGER SUPPLY CHAIN Pulse 85 07/04/2022 8:42 AM MANAGER SUPPLY CHAIN Temperature - - Respiratory Rate - - Oxygen Saturation 97% 07/04/2022 8:42 AM MANAGER SUPPLY CHAIN Inhaled Oxygen Concentration - - Weight 73.9 kg (163 lb) 07/04/2022 8:42 AM MANAGER SUPPLY CHAIN Height 149.9 cm (4' 11 ) 07/04/2022 8:42 AM MANAGER SUPPLY CHAIN Body Mass Index 32.92 07/04/2022 8:42 AM MANAGER SUPPLY CHAIN documented in this encounter Patient Instructions * Attachments The following attachments cannot be sent through Care Everywhere. * Computed Tomography Angiography, Coronary (Barb[place]) documented in this encounter Progress Notes * William Melgoza MD,PHD - 07/04/2022 9:00 AM CST Images from the original note were not included. [place], [place] [address] Reason for Visit: Chest Pain and Breathing Problem (1 month follow up ) History of Present Illness: Mrs. 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 The patient underwent exercise stress echocardiography on 06/12/2022 which she exercised for 4 minutes and 36 seconds achieving 7.1 metabolic equivalents. There was no evidence of ischemia by EKG or echo criteria. The patient does not have orthopnea, paroxysmal nocturnal dyspnea, lower extremity edema, presyncope or syncope. There is no prior history of TIA, ischemic stroke or intracranial hemorrhage. The patient's brother had a myocardial infarction at the age of 49 and underwent PCI. Her older brother of a myocardial infarction at the age of 67. The patient quit tobacco in 1979. Recommendations and Plan: Chest discomfort: 1. The patient underwent exercise stress echocardiography where she only exercised for 4 minutes and 36 seconds. The stress test was discontinued because of dyspnea. 2. Given low exercise capacity the patient could be considered at least mild to moderate risk for coronary artery disease. 3. For further evaluation I have recommended that the patient undergo coronary CT angiography. The patient would like to discuss this with her daughter and her son. 4. Follow-up in 6 months. Dyspnea on exertion: 1. Normal LV systolic function on transthoracic echocardiography with no significant structural heart disease. Family history of premature coronary artery disease: 1. LDL cholesterol is 116. 2. Lifestyle modification including plant-based diet, regular exercise and weight loss. Medications: Current Outpatient Medications: ??? vitamin E 180 MG (400 UNIT) capsule, Take 180 mg by mouth daily., Disp: , Rfl: ??? Cholecalciferol (VITAMIN D) 50 MCG (2000 UT) Cap, Take 1 tablet by mouth daily., Disp: , Rfl: Allergies Allergen Reactions ??? Penicillins Hives ??? Diphenhydramine Hcl Palpitations Past Medical History: Diagnosis Date ??? Mitral valve disorder ??? Precordial pain Past Surgical History: Procedure Laterality Date ??? TOTAL ABDOM HYSTERECTOMY 1989 Social History Tobacco Use ??? Smoking status: Former Types: Cigarettes Quit date: 1979 Years since quittin.9 ??? Smokeless tobacco: Never Substance Use Topics ??? Alcohol use: Not Currently ??? Drug use: Never Family History Problem Relation Name Age of Onset ??? Heart Attack Mother ??? Open Heart Mother ??? Heart Attack Father ??? Open Heart Father ??? Heart Attack Brother ??? Stroke Maternal Grandmother ??? Heart Attack Maternal Grandfather Family Status Relation Name Status ??? Mother Alive, age 95y ??? Father at age 86 ??? Sister Alive, age 65y ??? Brother at age 67 ??? Brother Alive, age 59y ??? MGM at age 60 ??? MGF at age 65 ??? PGM at age 82 ??? PGF at age 78 Review of Systems Constitutional: Negative for recent unintentional weight gain, recent unintentional weight loss andnew or significant fatigue. HENT: Negative for new or significant hearing loss. Eyes: Negative for blurred vision and double vision. Respiratory: Negative for cough, new or significant shortness of breath and snoring. Cardiovascular: See HPI. Gastrointestinal: Negative for blood in stool and melena. Genitourinary: Negative for dysuria. Musculoskeletal: Negative for myalgias and new or worsening joint stiffness/pain. Skin: Negative for rash. Neurological: Negative for tingling/numbness and focal weakness. Endo/Heme/Allergies: Negative for new or significant bruising/bleeding and polydipsia. Psychiatric/Behavioral: Negative for depression and new or significant memory loss. Vitals: 07/04/22 0842 BP: 126/78 Patient Position: Sitting BP Location: Right arm Pulse: 85 Weight: 73.9 kg (163 lb) Height: 4' 11 (1.499 m) Body mass index is 32.92 kg/m??. Cardiac Exam Rate/Rhythm: Normal rate and regular rhythm. PMI: PMI is not displaced. Pulses: Normal pulses. Carotid pulses are 2+ on the right side and 2+ on the left side. Radial pulses are 2+ on the right side and 2+ on the left side. Femoral pulses are 2+ on the right side and 2+ on the left side. Popliteal pulses are 2+ on the right side and 2+ on the left side. Dorsalis pedis pulses are 2+ on the right side and 2+ on the left side. Posterior tibial pulses are 2+ on the right side and 2+ on the left side. Heart Sounds: Normal heart sounds. Normal S1 sounds. Normal S2 sounds. No gallop present. No S3. NoS4. Murmurs: Edema left: 0. Edema Right: 0. Physical Exam Constitutional: No distress. Healthy Appearance. HENT: Oropharynx clear. Eyes: Pupils equal, round, and reactive to light. Conjunctivae normal. Neck: Neck supple. No JVD. Abdomen: Abdomen soft. Bowel sounds normal. No tenderness. No mass. No hepatomegaly. No splenomegaly. Abdominal aorta not palpably enlarged. No abdominal bruit present. Pulmonary: Effort normal. Breath sounds normal. Skin: No rash. No cyanosis. No clubbing. No xanthoma. Musculoskeletal: No kyphosis. Normal ROM. Neurological: Alert. Oriented x 3. Appropriate mood and affect. Normal motor skills. Normal gait. Comments: 04/09/2022 LIPIDS FLOWSHEET CHOLESTEROL 208 HDL 52 TRIGLYCERIDES 141 DIRECT LDL 116 This result is from an external source. Multiple values from one day are sorted in reverse-chronological order No results found for this visit on 07/04/22. Imaging: USE ECHOCARDIOGRAM W CON Echocardiography Report Pat.Name: ZEB NAZARIO.ID: [id number] .Date: 06/30/2022 Refer.: [id number] PATTI Rojas EWDPROV EWDPROV Exam Time: 7:51:00 AM Study Type:ECHO WITH CARDIAC DOPPLER COMP Height: 59 in Weight: 161 lb BSA: 1.68 m2 Age: 9 1960,62Y Sex: F BP: 135/62 HR: 79 bpm Sonogrphr: Mandy Fam RUST, [facility] Pat. Stat.:Outpatient Reason for Study:Chest pain Procedures: 2D, M-mode, Doppler, Color Flow, Definity was used to enhance endocardial definition. The study quality is technically difficult. Race: W ++++++++++++++++++++++++++++++++++++ SUMMARY: ++++++++++++++++++++++++++++++++++++ The left ventricular size is normal. Estimated left ventricular ejection fraction is 65-70%. Left ventricular diastolic function is abnormal (grade 1 - impaired relaxation). The right ventricular size is normal. Right ventricular systolic function is normal. ++++++++++++++++++++++++++++++++++++ FINDINGS: ++++++++++++++++++++++++++++++++++++ LV: The left ventricular size is normal. Estimated left ventricular ejection fraction is 65-70%. There is no left ventricular hypertrophy. Left ventricular diastolic function is abnormal (grade 1 - impaired relaxation). WM: Wall motion appears normal in all segments. LVOT: The left ventricular outflow tract size is normal. RV: The right ventricular size is normal. Right ventricular systolic function is normal. IVS: No evidence of ventricular septal defect. LA: The left atrial size is normal. The left atrial volume is normal ( less than 34 ml/M2). RA: Right atrial size is normal. IAS: Atrial septum appears intact. JAREK: Trivial pericardial effusion, without tamponade physiology. Prominent pericardial fat pad visualized. AO: Normal aortic root. PA: Estimated right atrial pressure of 8 mmHg. SVn: Inferior vena cava is mildly enlarged. AV: The aortic valve is trileaflet. No evidence of aortic valve stenosis. No evidence of aortic valve regurgitation. MV: No evidence of significant mitral regurgitation. No evidence of mitral stenosis. There is mild prolapse of both mitral valve leaflet(s). Best observed on M-mode. PV: Trace pulmonic regurgitation. No evidence of pulmonic valve stenosis. TV: A trace of tricuspid regurgitation. Right ventricular systolic pressure is 35 mmHg. No evidence of tricuspid valve stenosis. ++++++++++++++++++++++++++++++++++++ MEASUREMENTS: ++++++++++++++++++++++++++++++++++++ DOPPLER LVOT LVOTpkPG 4.14 mmHg LVOTmnPG 2.07 mmHg LVOTpkVel 102 cm/s (70-110)+ LVOT CO 6.56 l/min LVOT TVI 21.1 cm TV Regurg Flow RA Press 10 mmHg TV pkPG 25.4 mmHg TV mnVel 205 cm/s RVsys P 35.4 mmHg TV mnPG 18.3 mmHg TV TVI 77.4 cm TV FlwInt 377 msec TV pkVel 252 cm/s (30-70)+* MV Forward Flow MV DeTm 181 msec MV E/A 0.721 MVA P1/2t 4.19 cm2 (4-6) MV pkE 92.4 cm/s (60-130) MV P1/2t 52 msec (30-60) MV pkA 128 cm/s PV Regurg Flow PV pkVel 75.3 cm/s TV Forward Flow TV pkE 84.9 cm/s Lat E' Lat e 7.82 cm/s Lat E/E' Lat E/e 11.8 Med E' Med e 8.8 cm/s Med E/E' Med E/e 10.5 Left Ventricle LV IVRT 99 msec Composite heart 81 bpm Left Ventricula 146 mmHg Mitral Valve Decel [place] 530 cm/s2 Mitral Valve A 1.39 HR 77 bpm Pulmonic Valve AC 110 millisecond Peak Velocity 124 cm/s PG pk 6.12 mmHg PV Regurgitant Flow Peak Gradient ( 2.27 mmHg Tricuspid Valve TV Free Wall Sa 12.4 cm/s TV A pk Minna 116 cm/s HR 83 bpm 2D Left Ventricle LV CI 1.12 l/m/m2 LV vol d MOD A2 4.46 cm LVIDd 3.62 cm (4.3-5.1)* LV vol d MOD A2 4.48 cm LVIDs 2.89 cm (2-4) LV vol d MOD A4 2.23 cm LV%fs 20.3 % (25-46)* LV vol d MOD A4 3.37 cm LV CI 3.08 l/m/m2 LV vol d MOD A4 4.71 cm LV CI 3.32 l/m/m2 LV vol d MOD A4 4.66 cm LV CO 5.18 l/min LV vol d MOD A4 4.56 cm LV CO 5.59 l/min LV vol d MOD A4 4.39 cm LV CO BP 5.49 l/min LV vol d MOD A4 4.12 cm LV SV 64.7 ml LV vol d MOD A4 3.77 cm LV SV 70.7 ml LV vol d MOD A4 3.35 cm LV SV BP 69 ml LV vol d MOD A4 2.98 cm IVS %th 47.1 % LV vol d MOD A4 2.18 cm IVSs 1.32 cm LV vol d MOD A4 1.02 cm Left Ventricle 7.73 cm LV vol d MOD A4 3.94 cm Left Ventricle 8.04 cm LV vol d MOD A4 4.67 cm LVPW%th 29.5 % LV vol d MOD A4 5.09 cm LVPWs 1.26 cm LV vol d MOD A4 5.26 cm LV Semi-major A 5.41 cm LV vol d MOD A4 5.31 cm Left Ventricle 7.09 cm LV vol d MOD A4 5.01 cm Left Ventricle 7.34 cm LV vol d MOD A4 4.84 cm Left Ventricle 7.34 cm LV vol d MOD A4 4.84 cm LV Trunc Semi-m 2.63 cm LV vol s MOD A2 1.18 cm LV Area wong 29.9 cm2 LV vol s MOD A2 1.82 cm LV Area wong 32.7 cm2 LV vol s MOD A2 2.73 cm LVA% 47.6 % LV vol s MOD A2 2.81 cm LVA% 44 % LV vol s MOD A2 2.63 cm LV Area sys 15.7 cm2 LV vol s MOD A2 2.41 cm LV Area sys 18.3 cm2 LV vol s MOD A2 2.14 cm LV EF 68.8 % LV vol s MOD A2 1.82 cm LV EF 64.3 % LV vol s MOD A2 1.58 cm LV EF BP 66.8 % LV vol s MOD A2 1.38 cm LV EDV 94 ml LV vol s MOD A2 1.18 cm LV EDV 110 ml LV vol s MOD A2 0.394 cm LVEDV BP 61.4 ml LV vol s MOD A2 2.07 cm LV ESV 29.3 ml LV vol s MOD A2 2.31 cm LV ESV 39.3 ml LV vol s MOD A2 2.66 cm LVESV BP 20.4 ml LV vol s MOD A2 2.93 cm LV Mass 0.662 g/cm LV vol s MOD A2 3 cm Minor [place] (Tory 3.71 cm LV vol s MOD A2 3 cm Composite heart 80 bpm LV vol s MOD A2 2.86 cm Composite heart 79 bpm LV vol s MOD A2 2.68 cm Composite heart 80 bpm LV vol s MOD A4 2.39 cm Composite heart 80 bpm LV vol s MOD A4 2.49 cm Composite heart 80 bpm LV vol s MOD A4 3.18 cm LV vol d MOD A2 2.49 cm LV vol s MOD A4 3.05 cm LV vol d MOD A2 3.62 cm LV vol s MOD A4 2.93 cm LV vol d MOD A2 4.48 cm LV vol s MOD A4 2.71 cm LV vol d MOD A2 4.51 cm LV vol s MOD A4 2.46 cm LV vol d MOD A2 4.46 cm LV vol s MOD A4 2.14 cm LV vol d MOD A2 4.41 cm LV vol s MOD A4 1.77 cm LV vol d MOD A2 4.19 cm LV vol s MOD A4 1.21 cm LV vol d MOD A2 3.89 cm LV vol s MOD A4 0.911 cm LV vol d MOD A2 3.52 cm LV vol s MOD A4 0.517 cm LV vol d MOD A2 3.05 cm LV vol s MOD A4 2.68 cm LV vol d MOD A2 2.37 cm LV vol s MOD A4 2.81 cm LV vol d MOD A2 1.38 cm LV vol s MOD A4 2.9 cm LV vol d MOD A2 3.89 cm LV vol s MOD A4 2.98 cm LV vol d MOD A2 4.09 cm LV vol s MOD A4 3.05 cm LV vol d MOD A2 4.24 cm LV vol s MOD A4 3.15 cm LV vol d MOD A2 4.36 cm LV vol s MOD A4 3.22 cm LV vol d MOD A2 4.46 cm LV vol s MOD A4 3.27 cm LV vol d MOD A2 4.43 cm LVPW LVPWd 0.976 cm Left Atrium LA VOLBP 45 ml Major [place] (Sys 4.6 cm Lamb Disk Nu 9 Major [place] (Sys 4.62 cm Ratios IVS Ventricular Septum IVSd 0.898 cm Aorta AO Dd 2.96 cm LV Area-Length Biplane LVEDV 104 ml LVESV 33.3 ml LV Area-Length Single Plane LVEDV 98.5 ml LVESV 29.5 ml LVEDV 113 ml LVESV 38.9 ml LVOT LVOTArea 3.83 cm2 Cardiovascular 2.21 cm Right Atrium Major [place] (Sys 4.11 cm Lamb Disk Nu 9 HR 62 bpm RA Area-Length Single Plane Volume (Systole 16.6 ml/m2 RA Single Plane RA sys Area 11.6 cm2 Volume (Systole 25.9 ml Right Ventricle RVIDd 3.29 cm HR 68 bpm Major [place] (Tory 6.25 cm Minor [place] (Tory 2.56 cm RVOT PG pk 3.59 mmHg Peak Velocity 94.7 cm/s TA Cardiovascular 2.39 cm MMODE Ratios LA/Ao 1.25 (0.87-1.1)* Aorta Ao Rt 3.2 cm (zsc 1.5) Aortic Valve AV sep 2.2 cm (1.5-2.6) PG pk 10.6 mmHg AC 70.4 millisecond Peak Velocity 163 cm/s HR 82 bpm VTI 0.3 m PG mean 5.54 mmHg AV ET 273 millisecond Mean Velocity 110 cm/s AV AC/ET 0.258 Left Atrium LAIDs 4 cm End Diastolic A 0.8 AV Continuity Equation by Mean Velocity Orf Area 2.32 cm2 AV Continuity Equation by Peak Velocity Orf Area 1.42 square centimeters per square meter Area 2.39 cm2 AV Continuity Equation by Velocity Time Integral Orf Area 1.6 square centimeters per square meter Area 2.69 cm2 Left Ventricle Heart Rate-[place] 404 millisecond Composite HR fo 82 bpm Composite heart 82 bpm Pulmonary Veins Pul Vn A Dur 99.5 millisecond Pul Vn sys Vmax 55.9 cm/s Pul Vein Atrial 40.3 cm/s Pul Vn sys/wong 1.15 Pul Vn Wong Pk 48.5 cm/s Tricuspid Valve Tricuspid annul 2.16 cm Vena Cava IVC Diam 1.69 cm <Electronic Signature> 07/01/2022 02:30 PM William Melgoza M.D. Stress Echocardiography Report Pat.Name: ??ZEB NAZARIO ? Pat.ID: ?[id number] ? St.Date: ?? 06/12/2022 ? Refer.MD: ??[id number] PATTI CUNHA T ? EWDPROV ?EWDPROV Exam Time: 10:51:00 AM ? Study Type:STRESS ECHO DOPPLER COLOR FLOW Height: ?59 in ? Weight: ?161 lb ? BSA: ? 1.68 m2 ?Age: ??1960,62Y ? Sex: ? F ? BP: ?141/77 ? HR: ?86 bpm ?Sonogrphr: Portia Escalante RDCS ? Pat. Stat.:Outpatient ? Reason for Study:Chest pain ? Procedures: 2D, Doppler, Color Flow, Exercise Stress Echo, Definity was used to enhance endocardial definition. The study quality is technically difficult. Race: ?W ? ++++++++++++++++++++++++++++++++++++ SUMMARY: ++++++++++++++++++++++++++++++++++++ 1. ? Clinically negative. 2. ? Electrocardiographically negative treadmill test for ischemia. 3. ? Adequate exercise capacity. ?? 4. ? Echocardiographically negative for ischemia. 5. ? Gerardo Treadmill Score is 4.5 , which indicates low risk. 6. ? Blood pressure response was ??normal. ?? 7. ? The quality of this study is good . Definity was used. 8. ? Stress echocardiogram shows overall low risk for a cardiac event. ++++++++++++++++++++++++++++++++++++ FINDINGS: ++++++++++++++++++++++++++++++++++++ WM: ? Wall motion appears normal in all segments. JAREK: ? No evidence of pericardial effusion. AV: ? The aortic valve is trileaflet. No evidence of aortic valve ?stenosis. No evidence of aortic regurgitation. MV: ? Trace to mild mitral regurgitation. No evidence of mitral ?valve stenosis. PV: ? No evidence of pulmonic valve stenosis. No evidence of ?pulmonic regurgitation. TV: ? A trace of tricuspid regurgitation. No evidence of tricuspid ?valve stenosis. Resting Function and Wall Motion LV: ? LV function is normal. Overall wall motion is normal. ?Estimated EF is 60%. All mann are normal Stress Function and Wall Motion LV: ? LV function is normal. Overall stress wall motion is normal. ?Estimated EF is 70%. All mann are normal RV: ? RV function is normal. ++++++++++++++++++++++++++++++++++++ STRESS: ++++++++++++++++++++++++++++++++++++ Baseline Vital Signs: Baseline ECG: Normal ? Baseline Rhythm: Normal sinus rhythm HR: ?86 bmp ?Rest BP: ?? 141/77 Exercise Stress Echo Protocol: ??Hardy Duration: ??04:36 min:sec ? Max. Workload (METS): 7.1 Stress Test Results: Max HR: ?151 bmp ? Target HR: 157 bmp % Target: ??96 % ?Max BP: ?156/80 Max RPP: ?? [id number] ? Contrast: ??Definity 2 ml Symptoms and Complications: Arrhythmias: None Reason for Stopping Test: Dyspnea, Shortness of breath Stress Induced Symptoms: Dyspnea, Shortness of breath ECG Findings: ??No ischemic S-T changes occurred with stress ++++++++++++++++++++++++++++++++++++ MEASUREMENTS: ++++++++++++++++++++++++++++++++++++ ?2D Aorta ?Ao Rtd ? 3.5 cm ?? (zsc 3)+* LVOT ?LVOT ? 2.1 cm ?LVOTArea ?3.46 cm2 ?DOPPLER PV Forward Flow ??PV pkVel ? 122 cm/s (60-90)* PV pkPG ?6 mmHg ? ++++++++++++++++++++++++++++++++++++ WALL MOTION: ++++++++++++++++++++++++++++++++++++ RESTING WALL MOTION: All mann are normal Wall Index = 1 STRESS WALL MOTION: All mann are normal Stress Wall Index = 1 <Electronic Signature> 06/16/2022 07:39 AM Jaylon Edgar M.D. Diagnoses/Impression: 1. Precordial pain 2. BERMEO (dyspnea on exertion) 3. Family history of premature CAD Thank you for the privilege of participating in the care of Ms. Zeb Nazario. If you do have any additional questions or requests, please do not hesitate to contact me or our team at [facility]. William Melgoza MD,PHD Referring Provider: No ref. provider found PCP: Anne Morton MD GER SUPPLY CHAIN documented in this encounter Plan of Treatment Upcoming Encounters Date Type Department Care Team (Late st Contact Info) Description 07/19/2024 1:00 PM MANAGER SUPPLY CHAIN [facility]oint[facility] [place] [address] Chante Hamilton MD [address] [place] [address] 07/19/2024 2:30 PM MANAGER SUPPLY CHAIN Appointment [facility] [address] [place] [address] Chante Hamilton MD [address] [place] [address] 07/26/2024 7:40 AM MANAGER SUPPLY CHAIN Laboratory Only [facility] [place] [address] [place], [place] [id number] Chante Hamilton MD [address] [place] [address] 09/05/2024 10:15 AM MANAGER SUPPLY CHAIN Office Visit [facility] [address] [place] [address] Wilfrido Hobbs MD [address] [place] [address] documented as of this encounter Visit Diagnoses Diagnosis Precordial pain- Primary BERMEO (dyspnea on exertion) Other dyspnea and respiratory abnormality Family history of premature CAD Family history of ischemic heart disease documented in this encounter Care Teams Laborer Shaft Sinking Relationship Specialty Start Date End Date None, Provider, PCP - General 04/01/22 07/06/24 documented as of this encounter
--- OUTSIDE RECORDS SUMMARY | 2024-07-19 08:13 | XMS_ITS | Encounter Summary ---
Author Organization [facility] Address [address] [place] [address]. [place] [address] [place] [address] Care Team Providers Care Valve Steamer Name Role Phone None, Provider Primary Care Provider Unavaila ble Reason for Visit * Reason Comments Chest Pain 6MO Shortness Of Breath Encounter Details Date Type Department Care Team (Late st Contact Info) Description 07/20/2023 1:00 PM DIRECTOR SEARCH MARKETING STRATEGIES Office Visit [facility] [address] [place] [address] Wilfrido Hobbs MD [facility], [address] [place], [place] [id number] Chest Pain (6MO); Shortness Of Breath Social History Tobacco Use Types Packs/Day Years [...] Sign Reading Time Taken Comments Blood Pressure 134/72 07/20/2023 12:42 PM DIRECTOR SEARCH MARKETING STRATEGIES Pulse 73 07/20/2023 12:42 PM DIRECTOR SEARCH MARKETING STRATEGIES Temperature - - Respiratory Rate - - Oxygen Saturation 99% 07/20/2023 12:42 PM DIRECTOR SEARCH MARKETING STRATEGIES Inhaled Oxygen Concentration - - Weight 75 kg (165 lb 6.4 oz) 07/20/2023 12:42 PM DIRECTOR SEARCH MARKETING STRATEGIES Height 149.9 cm (4' 11 ) 07/20/2023 12:42 PM DIRECTOR SEARCH MARKETING STRATEGIES Body Mass Index 33.41 07/20/2023 12:42 PM DIRECTOR SEARCH MARKETING STRATEGIES documented in this encounter Progress Notes * Wilfrido Hobbs MD - 07/20/2023 1:00 PM CST Reason for Visit: Chest Pain (6MO) and Shortness Of Breath History of Present Illness: Mrs. 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 PMH includes obesity class I and mild mitral valve prolapse. She is doing well. Once in a while, she has palpitations. No chest discomfort. She is sometimes short of breath when she goes up and down the stairs. No edema, orthopnea or PND. Recommendations and Plan: Chest discomfort: The patient underwent exercise stress [...] Family history of premature coronary artery disease: LDL cholesterol is 116 mg/dL. Lifestyle modification including plant-based diet, regular exercise and weight loss. Obesity class I: Continue lifestyle modification. Her daughter is a poultry farmer helping her with ideas for weight loss. Follow up in 1 year. Medications: Current Outpatient Medications: Cholecalciferol (VITAMIN D) 50 MCG (1999 UT) Cap, Take 1 tablet by mouth daily., Disp: , Rfl: Saccharomyces boulardii (FLORASTORMAX) 500 MG Pack, , Disp: , Rfl: vitamin E 180 MG (400 UNIT) capsule, Take 1 capsule (180 mg total) by mouth daily., Disp: , Rfl: Allergies Allergen Reactions Penicillins Hives Diphenhydramine Hcl Palpitations Past Medical History: Diagnosis Date Mitral valve disorder Precordial pain Past Surgical History: Procedure Laterality Date TOTAL ABDOM HYSTERECTOMY 1989 Social History Tobacco Use Smoking status: Former Types: Cigarettes Quit date: 1979 Years since quittin.9 Smokeless tobacco: Never Substance Use Topics Alcohol use: Not Currently Drug use: Never Family History Problem Relation Name Age of Onset Heart Attack Mother Open Heart Mother Heart Attack Father Open Heart Father Heart Attack Brother Stroke Maternal Grandmother Heart Attack Maternal Grandfather Family Status Relation Name Status Mother at age 95 Father at age 86 Sister Alive, age 66y Brother at age 67 Brother Alive, age 60y MGM at age 60 MGF at age 65 PGM at age 82 PGF at age 78 Review of Systems Constitutional: Negative for recent unintentional weight gain, recent unintentional weight loss andnew or significant fatigue. HENT: Negative for new or significant hearing loss. Eyes: Negative for blurred vision and double vision. Respiratory: Negative for cough, new or significant shortness of breath and snoring. Cardiovascular: See HPI. Negative for chest pain, palpitations, orthopnea, leg swelling and PND. Gastrointestinal: Negative for heartburn, nausea, vomiting, blood in stool and melena. Genitourinary: Negative for dysuria. Musculoskeletal: Negative for myalgias and new or worsening joint stiffness/pain. Skin: Negative for rash. Neurological: Negative for tingling/numbness and focal weakness. Endo/Heme/Allergies: Negative for new or significant bruising/bleeding and polydipsia. Psychiatric/Behavioral: Negative for depression and new or significant memory loss. Vitals: 07/20/23 1242 BP: 134/72 Pulse: 73 Weight: 75 kg (165 lb 6.4 oz) Height: 1.499 m (4' 11 ) Body mass index is 33.41 kg/m??. Cardiac Exam Rate/Rhythm: Normal rate and [...] motor skills. Normal gait. Comments: Diagnoses/Impression: 1. BERMEO (dyspnea on exertion) 2. Chest discomfort 3. Mitral valve prolapse 4. Obesity, Class I, BMI 30-34.9 Referring Provider: No ref. provider found PCP: Provider MD Praveen CTOR SEARCH MARKETING STRATEGIES documented in this encounter Plan of Treatment Upcoming Encounters Date Type Department Care Team (Late st Contact Info) Description 07/19/2024 1:00 PM DIRECTOR SEARCH MARKETING STRATEGIES Appointment [place] [address] Chante Hamilton MD [address] [facility] [address] [place] [address] 07/19/2024 2:30 PM DIRECTOR SEARCH MARKETING STRATEGIES Appointment [place] [address] Chante Hamilton MD [address] [facility] [address] [place] [address] 07/26/2024 7:40 AM DIRECTOR SEARCH MARKETING STRATEGIES Laboratory Only [facility] Family Medicine - [place] [address] [place] [address] Chante Hamilton MD [address] [facility] [address] [place] [address] 09/05/2024 10:15 AM DIRECTOR SEARCH MARKETING STRATEGIES Office Visit [facility] [address] [place] [address] Wilfrido Hobbs MD Three [facility] [address] [place] [address] documented as of this encounter Visit Diagnoses Diagnosis BERMEO (dyspnea on exertion)- Primary Other dyspnea and respiratory abnormality Chest discomfort Other chest pain Mitral valve prolapse Mitral valve disorders Obesity, Class I, BMI 30-34.9 Obesity, unspecified documented in this encounter Care Teams Valve Steamer Relationship Specialty Start Date End Date None, Provider, PCP - General 04/01/22 07/06/24 documented as of this encounter
--- OUTSIDE RECORDS SUMMARY | 2024-07-19 08:13 | XMS_ITS | Encounter Summary ---
Author Organization [facility] Address [address] [place] [address]. [place] [address] [place] [address] Care Team Providers Care Clay Temperer Name Role Phone None, Provider MD Primary Care Provider Unavaila ble Reason for Visit * Reason Onset Date Comments Reschedule 03/05/2023 Patient reschedu led coronary cta from 03/06/23 to 04/09/23 Encounter Details Date Type Department Care Team (Late st Contact Info) Description 03/05/2023 Telephone [facility] THREE [facility], [address] [address] William Melgoza MD,PHD Reschedule (Patient rescheduled coronary cta from 03/06/23 to 04/09/23) Social History Tobacco Use Types Packs/Day Years [...] encounter Progress Notes * Octavia Marion - 03/05/2023 10:07 AM CDT Patient rescheduled coronary cta from 03/06/23 to 04/09/23 documented in this encounter Plan of Treatment Upcoming Encounters Date Type Department Care Team (Late st Contact Info) Description 07/19/2024 1:00 PM SEARCH ENGINE MARKETING STRATEGIST [facility] [address] [facility] [place] [address] Chante Hamilton MD [address] [place] [address] 07/19/2024 2:30 PM SEARCH ENGINE MARKETING STRATEGIST Appointment [facility] [place] [address] Chante Hamilton MD [address] [place] [address] 07/26/2024 7:40 AM SEARCH ENGINE MARKETING STRATEGIST Laboratory Only [facility] Family Medicine - [place] [address] [place] [address] Chante Hamilton MD [address] [place], [place] [phone] 09/05/2024 10:15 AM SEARCH ENGINE MARKETING STRATEGIST Office Visit [facility] [address] [place] [address] Wilfrido Hobbs MD [address] [place] [address] documented as of this encounter Visit Diagnoses Not on filedocumented in this encounter Care Teams Clay Temperer Relationship Specialty Start Date End Date None, Provider, PCP - General 04/01/22 07/06/24 documented as of this encounter
--- OUTSIDE RECORDS SUMMARY | 2024-07-19 08:13 | XMS_ITS | Encounter Summary ---
Author Organization [facility] Address [address] [place] [address]. [place] [address] [place] [address] Care Team Providers Care Life Skills Worker Name Role Phone Chante Hamilton MD Primary Care Provider + Encounter Details Date Type Department Care Team (Latest Contact Info) Description 07/18/2024 Travel Social History Tobacco Use Types Packs/Day [...] st Contact Info) Description 07/19/2024 1:00 PM PACU NURSE [facility] [place] [address] Chante Hamilton MD [address] [facility] [address] [place] [address] 07/19/2024 2:30 PM PACU NURSE [facility] [place] [address] Chante Hamilton MD [address] [place], [place] [address] 07/26/2024 7:40 AM PACU NURSE Laboratory Only [facility] Family Medicine - [place] [address] [place], [place] [address] Chante Hamilton MD [address] [place], [place] [address] 09/05/2024 10:15 AM PACU NURSE Office Visit [facility] [address] [place] [address] Wilfrido Hobbs MD [facility] [address] [place], [place] [address] documented as of this encounter Visit Diagnoses Not on filedocumented in this encounter Care Teams Life Skills Worker Relationship Specialty Start Date End Date Chante Hamilton MD [address] [place], [place] [phone] PCP - General FAMILY PRACTICE 07/07/24 documented as of this encounter
--- OUTSIDE RECORDS SUMMARY | 2024-07-19 08:13 | XMS_ITS | Encounter Summary ---
Author Organization [facility] Address [address] [place] [address]. [place] [address] [place] [address] Care Team Providers Care Emergency Medicine Medical Director Name Role Phone None, Provider Primary Care Provider Unavaila ble Reason for Visit * Imaging (Routine) - Closed Specialty Diagnoses / Procedures Referred By Yris rojas Referred To Contact RADIOLOGY Diagnoses Precordial pain BERMEO (dyspnea on exertion) Procedures USE ECHOCARDIOGRAM W CON USE ECHOCARDIOGRAM William Melgoza MD,PHD Referral ID Status Reason Start Date Expiration Date Visits Re quested Visits Authorized [id number] Closed 04/04/2022 05/04/2023 1 1 Encounter Details Date Type Department Care Team (Latest Contact Info) Description 06/30/2022 7:30 AM DIRECTOR APPAREL - 06/30/2022 11:59 PM [facility] Hospital Encounter [facility] [place] [address] William Melgoza MD,PHD Discharge Disposition: Home or [...] Coronavirus/COVID-19? No / Unsure 06/30/2022 7:36 AM DIRECTOR APPAREL documented as of this encounter Medications at Time of Discharge Cholecalciferol (VITAMIN D) 50 MCG (1999) Cap Take 1 tablet by mouth daily. 06/03/2021 Saccharomyces boulardii (FLORASTORMAX) 500 MG Pack 03/24/2022 documented as of this encounter Plan of Treatment Upcoming Encounters Date Type Department Care Team (Late st Contact Info) Description 07/19/2024 1:00 PM DIRECTOR APPAREL Appointment [facility] [place] [address] Chante Hamilton MD [address] [place] [phone] 07/19/2024 2:30 PM DIRECTOR APPAREL Appointment [facility] [place] [address] Chante Hamilton MD [address] [place] [address] 07/26/2024 7:40 AM DIRECTOR APPAREL Laboratory Only [facility] Family Medicine - [place] [address] [place] [phone] Chante Hamilton MD [address] [place] [address] 09/05/2024 10:15 AM DIRECTOR APPAREL Office Visit [facility] [address] [place], [place] [phone] Wilfrido Hobbs MD Three [facility] [address] [place], [place] [address] documented as of this encounter Procedures Procedure Name Priority Date/Time Associated Diagnosis Comments USE ECHOCARDIOGRAM W CON Routine 06/30/2022 8:52 AM DIRECTOR APPAREL Precordial pain BERMEO (dyspnea on exertion) documented in this encounter Results * USE ECHOCARDIOGRAM W CON (06/30/2022 8:52 AM DIRECTOR APPAREL) Anatomical Region Laterality Modality NA Echocardiogram 06/30/2022 7:51 AM DIRECTOR APPAREL Narrative 07/01/2022 2:30 PM DIRECTOR APPAREL ?Echocardiography Report Pat.Name: ??ZEB CASTELLON ? Pat.ID: ?[id number] ? St.Date: ?? 06/30/2022 ? Refer.MD: ??[id number] PATTI CUNHA T ? EWDPROV ?EWDPROV Exam Time: 7:51:00 AM ? Study Type:ECHO WITH CARDIAC DOPPLER COMP Height: ?59 in ? Weight: ?161 lb ? BSA: ? 1.68 m2 ?Age: ??1960,62Y ? Sex: ? F ? BP: ?135/62 ? HR: ?79 bpm ?Sonogrphr: Mandy Fam RDCS, RCS Pat. Stat.:Outpatient ? Reason for Study:Chest pain ? Procedures: 2D, M-mode, Doppler, Color Flow, Definity was used to enhance endocardial definition. The study quality is technically difficult. Race: ?W ? ++++++++++++++++++++++++++++++++++++ SUMMARY: ++++++++++++++++++++++++++++++++++++ The left ventricular size is normal. Estimated left ventricular ejection fraction is 65-70%. Left ventricular diastolic function is abnormal (grade 1 - impaired relaxation). The right ventricular size is normal. Right ventricular systolic function is normal. ++++++++++++++++++++++++++++++++++++ FINDINGS: ++++++++++++++++++++++++++++++++++++ LV: ? The left ventricular size is normal. Estimated left ?ventricular ejection fraction is 65-70%. There is no left ?ventricular hypertrophy. Left ventricular diastolic function ?is abnormal (grade 1 - impaired relaxation). WM: ? Wall motion appears normal in all segments. LVOT: ? The left ventricular outflow tract size is normal. RV: ? The right ventricular size is normal. Right ventricular ?systolic function is normal. IVS: ?No evidence of ventricular septal defect. LA: ? The left atrial size is normal. The left atrial volume is ?normal ( less than 34 ml/M2). RA: ? Right atrial size is normal. IAS: ?Atrial septum appears intact. JAREK: ? Trivial pericardial effusion, without tamponade physiology. ?Prominent pericardial fat pad visualized. AO: ? Normal aortic root. PA: ? Estimated right atrial pressure of 8 mmHg. SVn: ?Inferior vena cava is mildly enlarged. AV: ? The aortic valve is trileaflet. No evidence of aortic valve ?stenosis. No evidence of aortic valve regurgitation. MV: ? No evidence of significant mitral regurgitation. No evidence ?of mitral stenosis. There is mild prolapse of both mitral ?valve leaflet(s). Best observed on M-mode. PV: ? Trace pulmonic regurgitation. No evidence of pulmonic valve ?stenosis. TV: ? A trace of tricuspid regurgitation. Right ventricular ?systolic pressure is 35 mmHg. No evidence of tricuspid valve ?stenosis. ++++++++++++++++++++++++++++++++++++ MEASUREMENTS: ++++++++++++++++++++++++++++++++++++ ?DOPPLER LVOT ?? LVOTpkPG ?4.14 mmHg ?LVOTmnPG ?2.07 mmHg LVOTpkVel ?102 cm/s (70-110)+ LVOT CO ? 6.56 l/min LVOT TVI ?21.1 cm ? TV Regurg Flow RA Press ?10 mmHg ?TV pkPG ? 25.4 mmHg TV mnVel ? 205 cm/s ?RVsys P ? 35.4 mmHg TV mnPG ? 18.3 mmHg ?TV TVI ?77.4 cm ?? TV FlwInt ?377 msec ? TV pkVel ? 252 cm/s (30-70)+* MV Forward Flow MV DeTm ?181 msec ?MV E/A ? 0.721 ? MVA P1/2t ? 4.19 cm2 ??(4-6) ?MV pkE ?92.4 cm/s (60-130) MV P1/2t ?52 msec (30-60) ??MV pkA ? 128 cm/s PV Regurg Flow PV pkVel ?75.3 cm/s ? TV Forward Flow TV pkE ?84.9 cm/s ? Lat E' ?? Lat e ? 7.82 cm/s ? Lat E/E' ?? Lat E/e ? 11.8 ? Med E' ?? Med e ?8.8 cm/s ? Med E/E' ?? Med E/e ? 10.5 ? Left Ventricle ?? LV IVRT ? 99 msec ?Composite heart ?81 bpm Left Ventricula ?? 146 mmHg ? Mitral Valve ?? Decel [place] ?530 cm/s2 ? Mitral Valve A ?? 1.39 ? HR ?77 bpm ? Pulmonic Valve ?? AC ? 110 millisecond ?? Peak Velocity ?124 cm/s PG pk ? 6.12 mmHg ? PV Regurgitant Flow Peak Gradient ( ??2.27 mmHg ? Tricuspid Valve ?? TV Free Wall Sa ??12.4 cm/s ? TV A pk Minna ?116 cm/s HR ?83 bpm ?2D Left Ventricle ?? LV CI ? 1.12 l/m/m2 ?LV vol d MOD A2 ??4.46 cm ?? LVIDd ? 3.62 cm ?? (4.3-5.1)* LV vol d MOD A2 ??4.48 cm ?? LVIDs ? 2.89 cm ?? (2-4) ?LV vol d MOD A4 ??2.23 cm ?? LV%fs ? 20.3 % ?(25-46)* LV vol d MOD A4 ??3.37 cm ?? LV CI ? 3.08 l/m/m2 ?LV vol d MOD A4 ??4.71 cm ?? LV CI ? 3.32 l/m/m2 ?LV vol d MOD A4 ??4.66 cm ?? LV CO ? 5.18 l/min ? LV vol d MOD A4 ??4.56 cm ?? LV CO ? 5.59 l/min ? LV vol d MOD A4 ??4.39 cm ?? LV CO BP ?5.49 l/min ? LV vol d MOD A4 ??4.12 cm ?? LV SV ? 64.7 ml ?LV vol d MOD A4 ??3.77 cm ?? LV SV ? 70.7 ml ?LV vol d MOD A4 ??3.35 cm ?? LV SV BP ?69 ml ?LV vol d MOD A4 ??2.98 cm ?? IVS %th ? 47.1 % ? LV vol d MOD A4 ??2.18 cm ?? IVSs ?1.32 cm ?LV vol d MOD A4 ??1.02 cm ?? Left Ventricle ?? 7.73 cm ? LV vol d MOD A4 ??3.94 cm ?? Left Ventricle ?? 8.04 cm ? LV vol d MOD A4 ??4.67 cm ?? LVPW%th ? 29.5 % ? LV vol d MOD A4 ??5.09 cm ?? LVPWs ? 1.26 cm ?LV vol d MOD A4 ??5.26 cm ?? LV Semi-major A ??5.41 cm ? LV vol d MOD A4 ??5.31 cm ?? Left Ventricle ?? 7.09 cm ? LV vol d MOD A4 ??5.01 cm ?? Left Ventricle ?? 7.34 cm ? LV vol d MOD A4 ??4.84 cm ?? Left Ventricle ?? 7.34 cm ? LV vol d MOD A4 ??4.84 cm ?? LV Trunc Semi-m ??2.63 cm ? LV vol s MOD A2 ??1.18 cm ?? LV Area wong ?29.9 cm2 ? LV vol s MOD A2 ??1.82 cm ?? LV Area wong ?32.7 cm2 ? LV vol s MOD A2 ??2.73 cm ?? LVA% ?47.6 % ? LV vol s MOD A2 ??2.81 cm ?? LVA% ?44 % ? LV vol s MOD A2 ??2.63 cm ?? LV Area sys ? 15.7 cm2 ? LV vol s MOD A2 ??2.41 cm ?? LV Area sys ? 18.3 cm2 ? LV vol s MOD A2 ??2.14 cm ?? LV EF ? 68.8 % ? LV vol s MOD A2 ??1.82 cm ?? LV EF ? 64.3 % ? LV vol s MOD A2 ??1.58 cm ?? LV EF BP ?66.8 % ? LV vol s MOD A2 ??1.38 cm ?? LV EDV ?94 ml ?LV vol s MOD A2 ??1.18 cm ?? LV EDV ? 110 ml ?LV vol s MOD A2 0.394 cm ?? LVEDV BP ?61.4 ml ?LV vol s MOD A2 ??2.07 cm ?? LV ESV ?29.3 ml ?LV vol s MOD A2 ??2.31 cm ?? LV ESV ?39.3 ml ?LV vol s MOD A2 ??2.66 cm ?? LVESV BP ?20.4 ml ?LV vol s MOD A2 ??2.93 cm ?? LV Mass ?0.662 g/cm ?LV vol s MOD A2 ? 3 cm ?? Minor Jamul (Tory ??3.71 cm ? LV vol s MOD A2 ? 3 cm ?? Composite heart ?80 bpm ?LV vol s MOD A2 ??2.86 cm ?? Composite heart ?79 bpm ?LV vol s MOD A2 ??2.68 cm ?? Composite heart ?80 bpm ?LV vol s MOD A4 ??2.39 cm ?? Composite heart ?80 bpm ?LV vol s MOD A4 ??2.49 cm ?? Composite heart ?80 bpm ?LV vol s MOD A4 ??3.18 cm ?? LV vol d MOD A2 ??2.49 cm ? LV vol s MOD A4 ??3.05 cm ?? LV vol d MOD A2 ??3.62 cm ? LV vol s MOD A4 ??2.93 cm ?? LV vol d MOD A2 ??4.48 cm ? LV vol s MOD A4 ??2.71 cm ?? LV vol d MOD A2 ??4.51 cm ? LV vol s MOD A4 ??2.46 cm ?? LV vol d MOD A2 ??4.46 cm ? LV vol s MOD A4 ??2.14 cm ?? LV vol d MOD A2 ??4.41 cm ? LV vol s MOD A4 ??1.77 cm ?? LV vol d MOD A2 ??4.19 cm ? LV vol s MOD A4 ??1.21 cm ?? LV vol d MOD A2 ??3.89 cm ? LV vol s MOD A4 0.911 cm ?? LV vol d MOD A2 ??3.52 cm ? LV vol s MOD A4 0.517 cm ?? LV vol d MOD A2 ??3.05 cm ? LV vol s MOD A4 ??2.68 cm ?? LV vol d MOD A2 ??2.37 cm ? LV vol s MOD A4 ??2.81 cm ?? LV vol d MOD A2 ??1.38 cm ? LV vol s MOD A4 ?? 2.9 cm ?? LV vol d MOD A2 ??3.89 cm ? LV vol s MOD A4 ??2.98 cm ?? LV vol d MOD A2 ??4.09 cm ? LV vol s MOD A4 ??3.05 cm ?? LV vol d MOD A2 ??4.24 cm ? LV vol s MOD A4 ??3.15 cm ?? LV vol d MOD A2 ??4.36 cm ? LV vol s MOD A4 ??3.22 cm ?? LV vol d MOD A2 ??4.46 cm ? LV vol s MOD A4 ??3.27 cm ?? LV vol d MOD A2 ??4.43 cm ? LVPW ?? LVPWd ?0.976 cm ? Left Atrium ?? LA VOLBP ?45 ml ?Major Jamul (Sys ?? 4.6 cm ?? Lamb Disk Nu ? 9 ?Major Jamul (Sys ??4.62 cm ?? Ratios ?? IVS Ventricular Septum ?? IVSd ? 0.898 cm ? Aorta ?? AO Dd ? 2.96 cm ? LV Area-Length Biplane LVEDV ?104 ml ?LVESV ? 33.3 ml ?? LV Area-Length Single Plane LVEDV ? 98.5 ml ?LVESV ? 29.5 ml ?? LVEDV ?113 ml ?LVESV ? 38.9 ml ?? LVOT ?? LVOTArea ?3.83 cm2 ? Cardiovascular ?? 2.21 cm ?? Right Atrium ?? Major Jamul (Sys ??4.11 cm ? Lamb Disk Nu ? 9 ? HR ?62 bpm ? RA Area-Length Single Plane Volume (Systole ??16.6 ml/m2 ? RA Single Plane RA sys Area ? 11.6 cm2 ? Volume (Systole ??25.9 ml ?? Right Ventricle ?? RVIDd ? 3.29 cm ?HR ?68 bpm Major Jamul (Tory ??6.25 cm ? Minor Jamul (Tory ??2.56 cm ?? RVOT ?? PG pk ? 3.59 mmHg ?Peak Velocity ?? 94.7 cm/s TA ?? Cardiovascular ?? 2.39 cm ?MMODE Ratios ?? LA/Ao ? 1.25 ?(0.87-1.1)* Aorta ?? Ao Rt ?3.2 cm ?? (zsc 1.5) Aortic Valve ?? AV sep ? 2.2 cm ?? (1.5-2.6) PG pk ? 10.6 mmHg AC ?70.4 millisecond ?? Peak Velocity ?163 cm/s HR ?82 bpm ? VTI ?0.3 m ?? PG mean ? 5.54 mmHg ?AV ET ?273 millisecond Mean Velocity ?110 cm/s ?AV AC/ET ? 0.258 ? Left Atrium ?? LAIDs ?4 cm ?End Diastolic A ?? 0.8 ? AV Continuity Equation by Mean Velocity Orf Area ?2.32 cm2 ? AV Continuity Equation by Peak Velocity Orf Area ?1.42 square centimeters per square meter Area ?2.39 cm2 AV Continuity Equation by Velocity Time Integral Orf Area ? 1.6 square centimeters per square meter Area ?2.69 cm2 Left Ventricle ?? Heart Rate-[place] ?? 404 millisecond ??Composite HR fo ?82 bpm Composite heart ?82 bpm ? Pulmonary Veins ?? Pul Vn A Dur ?99.5 millisecond ?? Pul Vn sys Vmax ??55.9 cm/s Pul Vein Atrial ??40.3 cm/s ? Pul Vn sys/wong ??1.15 ? Pul Vn Wong Pk ?? 48.5 cm/s ? Tricuspid Valve ?? Tricuspid annul ??2.16 cm ? Vena Cava ?? IVC Diam ?1.69 cm ? <Electronic Signature> 07/01/2022 02:30 PM William Melgoza M.D. Procedure Note William Melgoza MD,PHD - 07/01/2022 Echocardiography Report Pat.Name: ZEB CASTELLON.ID: [id number] .Date: 06/30/2022 Refer.: [id number] PATTI Rojas EWDPROV EWDPROV Exam Time: 7:51:00 AM Study Type:ECHO WITH CARDIAC DOPPLER COMP Height: 59 in Weight: 161 lb BSA: 1.68 m2 Age: 9 1960,62Y Sex: F BP: 135/62 HR: 79 bpm Sonogrphr: Mandy Fam [facility] Pat. Stat.:Outpatient Reason for Study:Chest pain Procedures: [...] Left Ventricula 146 mmHg Mitral Valve Decel [place] 530 cm/s2 Mitral Valve A 1.39 HR [...] vol s MOD A2 3 cm Minor Jamul (Tory 3.71 cm LV vol s MOD [...] Left Atrium LA VOLBP 45 ml Major Jamul (Sys 4.6 cm Lamb Disk Nu 9 Major Jamul (Sys 4.62 cm Ratios IVS Ventricular Septum IVSd 0.898 cm Aorta AO Dd 2.96 cm LV Area-Length Biplane LVEDV 104 ml LVESV 33.3 ml LV Area-Length Single Plane LVEDV 98.5 ml LVESV 29.5 ml LVEDV 113 ml LVESV 38.9 ml LVOT LVOTArea 3.83 cm2 Cardiovascular 2.21 cm Right Atrium Major Jamul (Sys 4.11 cm Lamb Disk Nu 9 HR 62 bpm RA Area-Length Single Plane Volume (Systole 16.6 ml/m2 RA Single Plane RA sys Area 11.6 cm2 Volume (Systole 25.9 ml Right Ventricle RVIDd 3.29 cm HR 68 bpm Major Jamul (Tory 6.25 cm Minor Jamul (Tory 2.56 cm RVOT PG pk 3.59 [...] Signature> 07/01/2022 02:30 PM William Melgoza M.D. us William Melgoza MD,PHD ECHO Final Re sult documented in this encounter Visit Diagnoses Diagnosis Precordial pain BERMEO (dyspnea on exertion) Other dyspnea and respiratory abnormality documented in this encounter Administered Medications Inactive Administered Medications - up to 3 most recent administrations Medication Order MAR Action Action Date Dose Rate Site perflutren lipid microsphere (DEFINITY) injection 2 mL 2 mL, Intravenous, IMG once as needed, Contrast, 1 dose, Starting on Thu06/30/22 at 0827, Until Thu06/30/22 at 0836, Administer over 30-60 seconds. Follow with 10 mL saline flush. Given 06/30/2022 8:36 AM DIRECTOR APPAREL 2 mLs documented in this encounter Care Teams Emergency Medicine Medical Director Relationship Specialty Start Date End Date None, Provider, PCP - General 04/01/22 07/06/24 documented as of this encounter
--- OUTSIDE RECORDS SUMMARY | 2024-07-19 08:13 | XMS_ITS | Encounter Summary ---
Author Organization [facility] Address [address] [place] [address]. [place] [address] [place] [address] Care Team Providers Care Mold Blower Name Role Phone None, Provider Primary Care Provider Unavaila ble Reason for Visit * Reason Onset Date Comments Results 06/16/2022 SE Encounter Details Date Type Department Care Team ([facility] st Contact Info) Description 06/16/[address] [address] Kandace Velásquez, RN Results (SE) Social History Tobacco Use Types Packs/Day Years [...] Coronavirus/COVID-19? No / Unsure 06/12/2022 10:04 AM LITIGATION CLAIM REPRESENTATIVE documented as of this encounter Progress Notes * Kandace Velásquez RN - 06/16/2022 10:46 AM CST SUMMARY: ++++++++++++++++++++++++++++++++++++ 1. Clinically negative. 2. Electrocardiographically negative treadmill test for ischemia. 3. Adequate exercise capacity. 4. Echocardiographically negative for ischemia. 5. Gerardo Treadmill Score is 4.5 , which indicates low risk. 6. Blood pressure response was normal. 7. The quality of this study is good . Definity was used. 8. Stress echocardiogram shows overall low risk for a cardiac Event. Patient informed of the response and v/u. Patient had no further questions. GATION CLAIM REPRESENTATIVE documented in this encounter Plan of Treatment Upcoming Encounters Date Type Department Care Team (Late st Contact Info) Description 07/19/2024 1:00 PM LITIGATION CLAIM REPRESENTATIVE Appointment [facility] [place], [place] [phone] Chante Hamilton MD [address] [place] [phone] 07/19/2024 2:30 PM LITIGATION CLAIM REPRESENTATIVE App[facility]ment [facility] [place] [place] [address] Chante Hamilton MD [address] [place] [phone] 07/26/2024 7:40 AM LITIGATION CLAIM REPRESENTATIVE Laboratory Only [facility] Family Medicine - [place] [address] [place] [address] Chante Hamilton MD [address] [place] [address] [phone] 09/05/2024 10:15 AM LITIGATION CLAIM REPRESENTATIVE Office Visit [facility] [address] [place], [place] [phone] Wilfrido Hobbs MD [address] [place], [place] [phone] documented as of this encounter Visit Diagnoses Not on filedocumented in this encounter Care Teams Mold Blower Relationship Specialty Start Date End Date None, Provider, PCP - General 04/01/22 07/06/24 documented as of this encounter
--- OUTSIDE RECORDS SUMMARY | 2024-07-19 08:13 | XMS_ITS | Encounter Summary ---
Author Organization [facility] Address [address] [place] [address]. [place] [address] [place] [address] Care Team Providers Care Internet Webmaster Name Role Phone None, Provider Primary Care Provider Noea ble Encounter Details Date Type Department Care Team (Latest Contact Info) Description 06/30/2022 Travel Social History Tobacco Use Types Packs/Day [...] Coronavirus/COVID-19? No / Unsure 06/30/2022 7:36 AM ALTERATION WORKROOM SUPERVISOR documented as of this encounter Plan of Treatment Upcoming Encounters Date Type Department Care Team (Late st Contact Info) Description 07/19/2024 1:00 PM ALTERATION WORKROOM SUPERVISOR [facility] [place] [address] Chante Hamilton MD [address] [place] [address] 07/19/2024 2:30 PM ALTERATION WORKROOM SUPERVISOR [facility] [address] [facility] [place] [address] Chante Hamilton MD [address] [place] [address] 07/26/2024 7:40 AM ALTERATION WORKROOM SUPERVISOR Laboratory Only [facility] Family Medicine - [place] [address] [place] [address] Chante Hamilton MD [address] [place] [address] 09/05/2024 10:15 AM ALTERATION WORKROOM SUPERVISOR Office Visit [facility] [address] [place] [address] Wilfrido [place]bs MD [address] [facility] [place] [address] documented as of this encounter Visit Diagnoses Not on filedocumented in this encounter Care Teams Internet Webmaster Relationship Specialty Start Date End Date None, Provider, PCP - General 04/01/22 07/06/24 documented as of this encounter
--- OUTSIDE RECORDS SUMMARY | 2024-07-19 08:13 | XMS_ITS | Encounter Summary ---
Author Organization [facility] Address [address] [place] [address]. [place] [address] [place] [address] Care Team Providers Care Distiller Name Role Phone None, Provider Primary Care Provider Ryan ble Encounter Details Date Type Department Care Team (Latest Contact Info) Description 07/04/2022 Travel Social History Tobacco Use Types Packs/Day [...] Coronavirus/COVID-19? No / Unsure 07/04/2022 8:38 AM RFID STRATEGIST documented as of this encounter Plan of Treatment Upcoming Encounters Date Type Department Care Team (Late st Contact Info) Description 07/19/2024 1:00 PM RFID STRATEGIST [facility]oint[address] [facility] [address] [place] [address] Chante Hamilton MD [address] [place] [address] 07/19/2024 2:30 PM RFID STRATEGIST [facility]ointment [facility] [address] [facility] [place] [address] Chante Hamilton MD [address] [place] [address] 07/26/2024 7:40 AM RFID STRATEGIST Laboratory Only [facility] Family Medicine - [place] [address] [place] [address] Chante Hamilton MD [address] [place] [address] 09/05/2024 10:15 AM RFID STRATEGIST Office Visit [facility] [address] [place] [address] Wilfrido [place] MD [address] [facility] [place] [address] documented as of this encounter Visit Diagnoses Not on filedocumented in this encounter Care Teams Distiller Relationship Specialty Start Date End Date None, Provider, PCP - General 04/01/22 07/06/24 documented as of this encounter
--- OUTSIDE RECORDS SUMMARY | 2024-07-19 08:13 | XMS_ITS | Encounter Summary ---
Author Organization [facility] Address [address] [place] [address]. [place] [address] [place] [address] Care Team Providers Care Dressing Room Porter Name Role Phone None, Provider Primary Care Provider Unavaila ble Reason for Visit * Imaging (Routine) - Closed Specialty Diagnoses / Procedures Referred By Yris tsai Referred To Contact RADIOLOGY Diagnoses Precordial pain BERMEO (dyspnea on exertion) Procedures USE STRESS ECHO W ALCIDES Dao MD USE STRESS ECHO INCLUDING S AND I William Melgoza MD,PHD Referral ID Status Reason Start Date Expiration Date Visits Re quested Visits Authorized [id number] Closed 04/04/2022 05/04/2023 1 1 Encounter Details Date Type Department Care Team (Latest Contact Info) Description 06/12/2022 10:05 AM PERSONAL COMPUTER NETWORK ENGINEER - 06/12/2022 11:59 PM [facility] Hospital Encounter [facility] [place] [address] William Melgoza MD,PHD Discharge Disposition: Home or [...] Coronavirus/COVID-19? No / Unsure 06/12/2022 10:04 AM PERSONAL COMPUTER NETWORK ENGINEER documented as of this encounter Medications at Time of Discharge Cholecalciferol (VITAMIN D) 50 MCG (1999 UT) Cap Take 1 tablet by mouth daily. 06/03/2021 Saccharomyces boulardii (FLORASTORMAX) 500 MG Pack 03/24/2022 documented as of this encounter Plan of Treatment Upcoming Encounters Date Type Department Care Team (Late st Contact Info) Description 07/19/2024 1:00 PM PERSONAL COMPUTER NETWORK ENGINEER Appointment [facility] [place] [address] Chante Hamilton MD [address] [facility] [address] [place] [phone] 07/19/2024 2:30 PM PERSONAL COMPUTER NETWORK ENGINEER [place] [address] Chante Hamilton MD [address] [facility] [address] [place] [address] [phone] 07/26/2024 7:40 AM PERSONAL COMPUTER NETWORK ENGINEER Laboratory Only [facility] Family Medicine - [place] [address] [place] [address] Chante Hamilton MD [address] [place] [address] 09/05/2024 10:15 AM PERSONAL COMPUTER NETWORK ENGINEER Office Visit [facility] [address] [place] [address] Wilfrido [place]bs MD [address] [facility] [place] [address] documented as of this encounter Procedures Procedure Name Priority Date/Time Associated Diagnosis Comments USE STRESS ECHO Feliberto Dao MD Routine 06/12/2022 1:52 PM PERSONAL COMPUTER NETWORK ENGINEER Precordial pain BERMEO (dyspnea on exertion) documented in this encounter Results * USE STRESS ECHO Feliberto Dao MD (06/12/2022 1:52 PM PERSONAL COMPUTER NETWORK ENGINEER) Anatomical Region Laterality Modality Cardiac Echocardiogram 06/12/2022 10:5 1 AM PERSONAL COMPUTER NETWORK ENGINEER Narrative 06/16/2022 7:39 AM PERSONAL COMPUTER NETWORK ENGINEER ?Stress Echocardiography Report Pat.Name: ??ZEB CASTELLON ? Pat.ID: ?[id number] ? St.Date: ?? 06/12/2022 ? Refer.MD: ??[id number] PATTI CUNHA T ? EWDPROV ?EWDPROV Exam Time: 10:51:00 AM ? Study Type:STRESS ECHO DOPPLER COLOR FLOW Height: ?59 in ? Weight: ?161 lb ? BSA: ? 1.68 m2 ?Age: ??1960,62Y ? Sex: ? F ? BP: ?141/77 ? HR: ?86 bpm ?Sonogrphr: Escalante Portia RDCS ? Pat. Stat.:Outpatient ? Reason for [...] % ?Max BP: ?156/80 Max RPP: ?? [id number] ? Contrast: ??Definity 2 ml Symptoms and Complications: Arrhythmias: None Reason for Stopping Test: Dyspnea, Shortness of breath Stress Induced Symptoms: Dyspnea, Shortness of breath ECG Findings: ??No ischemic S-T changes occurred with stress ++++++++++++++++++++++++++++++++++++ MEASUREMENTS: ++++++++++++++++++++++++++++++++++++ ?2D Aorta ?? Ao Rtd ? 3.5 cm ?? (zsc 3)+* LVOT ?? LVOT ? 2.1 cm ?LVOTArea ?3.46 cm2 ?DOPPLER PV Forward Flow PV pkVel ? 122 cm/s (60-90)* PV pkPG ?6 mmHg ++++++++++++++++++++++++++++++++++++ WALL MOTION: ++++++++++++++++++++++++++++++++++++ RESTING WALL MOTION: All mann are normal Wall Index = 1 STRESS WALL MOTION: All mann are normal Stress Wall Index = 1 <Electronic Signature> 06/16/2022 07:39 AM Jaylon Edgar M.D. Procedure Note Jaylon Edgar MD - 06/16/2022 Stress Echocardiography Report Pat.Name: ZEB CASTELLON Pat.ID: [id number] .Date: 06/12/2022 : [id number] PATTI Tsai EWDPROV EWDPROV Exam Time: 10:51:00 AM Study Type:STRESS ECHO DOPPLER COLOR FLOW Height: 59 in Weight: 161 lb BSA: 1.68 m2 Age: 8 1960,62Y Sex: F BP: 141/77 HR: 86 bpm Sonogrphr: Portia Escalante [facility] Pat. Stat.:Outpatient Reason for Study:Chest pain Procedures: 2D, Doppler, Color Flow, Exercise Stress Echo, Definity was used to enhance endocardial definition. The study quality is technically difficult. Race: W ++++++++++++++++++++++++++++++++++++ SUMMARY: ++++++++++++++++++++++++++++++++++++ 1. Clinically negative. 2. Electrocardiographically [...] a cardiac event. ++++++++++++++++++++++++++++++++++++ FINDINGS: ++++++++++++++++++++++++++++++++++++ WM: Wall motion appears normal in all segments. JAREK: No evidence of pericardial effusion. AV: The aortic valve is trileaflet. No evidence of aortic valve stenosis. No evidence of aortic regurgitation. MV: Trace to mild mitral regurgitation. No evidence of mitral valve stenosis. PV: No evidence of pulmonic valve stenosis. No evidence of pulmonic regurgitation. TV: A trace of tricuspid regurgitation. No evidence of tricuspid valve stenosis. Resting Function and Wall Motion LV: LV function is normal. Overall wall motion is normal. Estimated EF is 60%. All mann are normal Stress Function and Wall Motion LV: LV function is normal. Overall stress wall motion is normal. Estimated EF is 70%. All mann are normal RV: RV function is normal. ++++++++++++++++++++++++++++++++++++ STRESS: ++++++++++++++++++++++++++++++++++++ Baseline Vital Signs: Baseline ECG: Normal Baseline Rhythm: Normal sinus rhythm HR: 86 bmp Rest BP: 141/77 Exercise Stress Echo Protocol: Hardy Duration: 04:36 min:sec Max. Workload (METS): 7.1 Stress Test Results: Max HR: 151 bmp Target HR: 157 bmp % Target: 96 % Max BP: 156/80 Max RPP: [id number] Contrast: Definity 2 ml Symptoms and Complications: Arrhythmias: None Reason for Stopping Test: Dyspnea, Shortness of breath Stress Induced Symptoms: Dyspnea, Shortness of breath ECG Findings: No ischemic S-T changes occurred with stress ++++++++++++++++++++++++++++++++++++ MEASUREMENTS: ++++++++++++++++++++++++++++++++++++ 2D Aorta Ao Rtd 3.5 cm (zsc 3)+* LVOT LVOT 2.1 cm LVOTArea 3.46 cm2 DOPPLER PV Forward Flow PV pkVel 122 cm/s (60-90)* PV pkPG 6 mmHg ++++++++++++++++++++++++++++++++++++ WALL MOTION: ++++++++++++++++++++++++++++++++++++ RESTING WALL MOTION: All mann are normal Wall Index = 1 STRESS WALL MOTION: All mann are normal Stress Wall Index = 1 <Electronic Signature> 06/16/2022 07:39 AM Jaylon Edgar M.D. William Melgoza MD,PHD ECHO Final Re sult documented in this encounter Visit Diagnoses Diagnosis Precordial pain- Primary BERMEO (dyspnea on exertion) Other dyspnea and respiratory abnormality Mitral valve disorder Mitral valve disorders documented in this encounter Administered Medications Inactive Administered Medications - up to 3 most recent administrations Medication Order MAR Action Action Date Dose Rate Site perflutren lipid microsphere (DEFINITY) injection 2 mL 2 mL, Intravenous, IMG once as needed, Contrast, 1 dose, Starting on Audra 06/12/22 at 1352, Until Audra 06/12/22 at 1332, Administer over 30-60 seconds. Follow with 10 mL saline flush. Given 06/12/2022 1:32 PM PERSONAL COMPUTER NETWORK ENGINEER 2 mLs documented in this encounter Care Teams Dressing Room Porter Relationship Specialty Start Date End Date None, Provider, PCP - General 04/01/22 07/06/24 documented as of this encounter
--- OUTSIDE RECORDS SUMMARY | 2024-07-19 08:13 | XMS_ITS | Encounter Summary ---
Author Organization [facility] Address [address] [place] [address]. [place] [address] [place] [address] Care Team Providers Care Middle [employer] French Teacher Name Role Phone None, Provider Primary Care Provider Chante Gee MD Primary Care Provider + Encounter Details Date Type Department Care Team (Late Contact Info) Description 09/02/2022 Abstract [facility] THREE [facility], [address] [phone] Anshu Mendez MA Social History Tobacco Use Types Packs/Day Years [...] (Late Contact Info) Description 07/19/2024 1:00 PM RAMP AGENT Appointment [facility] [place] [address] Chante Hamilton MD [address] [place] [address] 07/19/2024 2:30 PM RAMP AGENT Appointment [facility] [address] [facility] [place] [address] Chante Hamilton MD [address] [place] [address] 07/26/2024 7:40 AM RAMP AGENT Laboratory Only [facility] Family Medicine - [place] [address] [place], [place] [address] Chante Hamilton MD [address] [place], [place] [address] 09/05/2024 10:15 AM RAMP AGENT Office Visit [facility] [address] [place] [address] Wilfrido Hobbs MD [address] [place], [place] [phone] documented as of this encounter Procedures Procedure Name Priority Date/Time Associated Diagnosis Comments CBC (OUTSIDE LAB) Routine 03/29/2022 COMPREHENSIVE METABOLIC PANEL Routine 03/29/2022 documented in this encounter Results * COMPREHENSIVE METABOLIC PANEL (03/29/2022) SODIUM S/P/B 139 POTASSIUM S/P/B 3.8 CO2 28 CHLORIDE S/P/B 103 GLUCOSE 115 mg/dL CALCIUM S/P/B 8.9 BUN 14 CREATININE S/P/B 0.70 0.5 - 1.0 EGFR NON-AFR. AMER. >60 <=90 ALKALINE PHOSPHATASE S/P/B 71 ALT 20 AST 28 BILIRUBIN TOTAL S/P/B 0.4 ALBUMIN S/P/B 4.4 3.5 - 5.0 TOTAL PROTEIN S/P/B 8.0 03/29/2022 us Default History Genericprovider LABORATORY Edited Result - Final * CBC (OUTSIDE LAB) (03/29/2022) WBC 10.5 HGB 13.4 HCT 42.3 PLT 345 03/29/2022 us Default History Genericprovider LAB-OUTSIDE/ABST RACTED Edited Result - Final documented in this encounter Visit Diagnoses Not on filedocumented in this encounter Care Teams [employer] French Teacher Relationship Specialty Start Date End Date None, Provider, PCP - General 04/01/22 07/06/24 Chante Hamilton MD [address] [place] [phone] PCP - General FAMILY PRACTICE 07/07/24 documented as of this encounter
--- OUTSIDE RECORDS SUMMARY | 2024-07-19 08:13 | XMS_ITS | Encounter Summary ---
Author Organization [facility] Address [address] [place] [address]. [place] [address] [place] [address] Care Team Providers Care Drier And Pulverizer Tender Name Role Phone None, Provider Primary Care Provider Unavaila ble Reason for Referral * Imaging (Routine) - Closed Specialty Diagnoses / Procedures Referred By Yris tsai Referred To Contact RADIOLOGY Diagnoses Precordial pain Procedures CTA CORONARY W SCORING William Melgoza MD,PHD Referral ID Status Reason Start Date Expiration Date Visits Re quested Visits Authorized [id number] Closed 01/12/2023 02/12/2024 1 1 Reason for Visit * Reason Comments Chest Pain 6mo follow up Breathing Problem Encounter Details Date Type Department Care Team (Latest Contact Info) Description 01/12/2023 2:00 PM CDT Office Visit [facility] [address] [address] William Melgoza MD,PHD Chest Pain (6mo follow up); Breathing Problem Social History Tobacco Use Types Packs/Day Years [...] Recorded In the last 10 days, have micah west been in contact with someone who was confirmed or suspected to have Coronavirus/COVID-19? No / Unsure 01/12/2023 1:39 PM CDT documented as of this encounter Last Filed Vital Signs Vital Sign Reading Time Taken Comments Blood Pressure 128/82 01/12/2023 1:56 PM CDT Pulse 82 01/12/2023 1:56 PM CDT Temperature - - Respiratory Rate - - Oxygen Saturation 97% 01/12/2023 1:56 PM CDT Inhaled Oxygen Concentration - - Weight 75.8 kg (167 lb) 01/12/2023 1:56 PM CDT Height 149.9 cm (4' 11 ) 01/12/2023 1:56 PM CDT Body Mass Index 33.73 01/12/2023 1:56 PM CDT documented in this encounter Patient Instructions * Patient Instructions* MATA Medrano - 01/12/2023 2:00 PM CDT Casting Agent will call to schedule CTA at [facility] in [place]. Information/instructions will also be mailed to you. Make sure you call the hospital to inquire about a payment/fee schedule for self pay patients. * Attachments The following attachments cannot be sent through Care Everywhere. * Computed Tomography Angiography, Coronary (Citizen Of [place]) documented in this encounter Progress Notes * William Melgoza MD,PHD - 01/12/2023 2:00 PM CDT Images from the original note were not included. [place], [place] [address] Reason for Visit: Chest Pain (6mo follow up) and Breathing Problem History of Present Illness: Mrs. Karly Nazario is a pleasant 62-year-old woman with [...] moderate risk for coronary artery disease. 3. The patient recently lost her mother at the age of 96. She continues to have intermittent episodes of chest discomfort. Today I have recommended coronary CT angiography. 4. Follow-up in 6 months. Dyspnea on exertion: 1. Normal LV systolic function on transthoracic echocardiography with no significant structural heart disease. Family history of premature coronary artery disease: 1. LDL cholesterol is 116. 2. Lifestyle modification including plant-based diet, regular exercise and weight loss. Medications: Current Outpatient Medications: Cholecalciferol (VITAMIN D) 50 MCG (2000 UT) Cap, Take 1 tablet by mouth daily., Disp: , Rfl: vitamin E 180 MG (400 UNIT) capsule, Take 180 mg by mouth daily., Disp: , Rfl: Review of patient's allergies indicates: Allergen Reactions Penicillins Hives Diphenhydramine Hcl Palpitations Past Medical History: Diagnosis Date Mitral valve disorder Precordial pain Past Surgical History: Procedure Laterality Date TOTAL ABDOM HYSTERECTOMY 1989 Social History Tobacco Use Smoking status: Former Types: Cigarettes Quit date: 1979 Years since quittin.4 Smokeless tobacco: Never Substance Use Topics Alcohol use: Not Currently Drug use: Never Family History Problem Relation Name Age of Onset Heart Attack Mother Open Heart Mother Heart Attack Father Open Heart Father Heart Attack Brother Stroke Maternal Grandmother Heart Attack Maternal Grandfather Family Status Relation Name Status Mother at age 95 Father at age 86 Sister Alive, age 65y Brother at age 67 Brother Alive, age 59y MGM at age 60 MGF at age [...] and new or significant memory loss. Vitals: 01/12/23 1356 BP: 128/82 Pulse: 82 Weight: 75.8 kg (167 lb) Height: 4' 11 (1.499 m) Body mass index is 33.73 kg/m??. Cardiac Exam Rate/Rhythm: Normal rate and [...] affect. Normal motor skills. Normal gait. Comments: 03/29/2022 12:00 AM 04/09/2022 12:00 AM LIPIDS FLOWSHEET AST 28 ALT 20 CHOLESTEROL 208 HDL 52 TRIGLYCERIDES 141 DIRECT LDL 116 This result is from an external source. No results found for this visit on 01/12/23. Imaging: USE ECHOCARDIOGRAM W CON Echocardiography Report Pat.Name: KARLY NAZARIO.ID: [id number] .Date: 06/30/2022 Refer.: [id number] PATTI Tsai EWDPROV EWDPROV Exam Time: 7:51:00 AM Study Type:ECHO WITH CARDIAC DOPPLER COMP Height: 59 in Weight: 161 lb BSA: 1.68 m2 Age: 9 1960,62Y Sex: F BP: 135/62 HR: 79 bpm Sonogrphr: Mandy Fam RD, [facility] Pat. Stat.:Outpatient Reason for Study:Chest pain Procedures: [...] Left Ventricula 146 mmHg Mitral Valve Decel [place] 530 cm/s2 Mitral Valve A 1.39 HR [...] vol s MOD A2 3 cm Minor Forsyth (Tory 3.71 cm LV vol s MOD [...] Left Atrium LA VOLBP 45 ml Major Forsyth (Sys 4.6 cm Lamb Disk Nu 9 Major Forsyth (Sys 4.62 cm Ratios IVS Ventricular Septum IVSd 0.898 cm Aorta AO Dd 2.96 cm LV Area-Length Biplane LVEDV 104 ml LVESV 33.3 ml LV Area-Length Single Plane LVEDV 98.5 ml LVESV 29.5 ml LVEDV 113 ml LVESV 38.9 ml LVOT LVOTArea 3.83 cm2 Cardiovascular 2.21 cm Right Atrium Major Forsyth (Sys 4.11 cm Lamb Disk Nu 9 HR 62 bpm RA Area-Length Single Plane Volume (Systole 16.6 ml/m2 RA Single Plane RA sys Area 11.6 cm2 Volume (Systole 25.9 ml Right Ventricle RVIDd 3.29 cm HR 68 bpm Major [place] (Tory 6.25 cm Minor Forsyth (Tory 2.56 cm RVOT PG pk 3.59 [...] William Melgoza M.D. Stress Echocardiography Report Pat.Name: KARLY NAZARIO.ID: [id number] St.Date: 06/12/2022 Refer.MD: [id number] PATTI Tsai EWDPROV EWDPROV Exam Time: 10:51:00 AM Study Type:STRESS ECHO DOPPLER COLOR FLOW Height: 59 in Weight: 161 lb BSA: 1.68 m2 Age: 9 1960,62Y Sex: F BP: 141/77 HR: 86 bpm Sonogrphr: Portia Escalante [facility] Pat. Stat.:Outpatient Reason for Study:Chest pain Procedures: [...] 96 % Max BP: 156/80 Max RPP: [id number] Contrast: Definity 2 ml Symptoms and Complications: [...] = 1 <Electronic Signature> 06/16/2022 07:39 AM Zina Diaz M.D. Diagnoses/Impression: 1. Precordial pain CTA CORONARY W SCORING 2. BERMEO (dyspnea on exertion) 3. Family history of premature CAD Thank you for the privilege of participating in the care of Ms. Karly Nazario. If you do have any additional questions or requests, please do not hesitate to contact me or our team at [facility]. William Melgoza MD,PHD Referring Provider: No ref. provider found PCP: Provider MD Praveen documented in this encounter Plan of Treatment Upcoming Encounters Date Type Department Care Team (Late st Contact Info) Description 07/19/2024 1:00 PM SILK SCREEN PRINTER HELPER Appointment [facility] [place] [address] Chante Hamilton MD [address] [place] [id number] 07/19/2024 2:30 PM SILK SCREEN PRINTER HELPER Appointment [facility] [address] Chante Hamilton MD [address] [place] [id number] 07/26/2024 7:40 AM SILK SCREEN PRINTER HELPER Laboratory Only [facility] Family Medicine - [place] [address] [place] [address] Chante Hamilton MD [address] [place] [address] 09/05/2024 10:15 AM SILK SCREEN PRINTER HELPER Office Visit [facility] [address] [place] [address] Wilfrido Hobbs MD Three [facility], [address] [place], [place] [phone] documented as of this encounter Results * CTA CORONARY W SCORING (05/13/2023 1:35 PM CDT) Anatomical Region Laterality Modality Chest Computed Tomogra phy, Radiographic Imaging 05/14/2023 5:04 PM CDT Addenda Addendum by Zina iDaz MD on 05/17/2023 8:01 PM CDT Table formatting from the original result was not included. CT ANGIOGRAM (Cardiology Portion) Patient Name: ??Karly Nazario : ??1960 Date of Study: ??05-13-2023 Interpreting Table Worker: ??ZINA DIAZ M.D. Indication: ??Evaluate coronaries History: ??63-year-old female with family history for coronary artery disease PRE PROCEDURE DATA Baseline heart rate is 74 beats per minute. ??Blood pressure is 138/84 mmHg. A 20 gauge Heplock was inserted in the right antecubital vein and flushed with a 0.9 NACL. PROCEDURE DATA Baseline heart rate is 63 beats per minute. ??Blood pressure is 148/70 mmHg. Medication totals: Metoprolol 0 mg IVP Nitroglycerin sublingual tab times 1 Isovue contrast total is 80 ml followed by a flush of 0.9 normal saline 40 ml POST PROCEDURE DATA Post procedure heart rate is 67 beats per minute. ??Blood pressure is 154/79 mmHg. Patient tolerated procedure well. IV access discontinued and band aide dressing applied to site. TECHNIQUE Computed tomography was performed along the axial plane with 0.75 mm slice thickness utilizing IV administration of Isovue 370. FINDINGS The coronary calcium score is 0. The quality of the study is fair. CARDIAC STRUCTURES Left Atrium: ??Normal in size. Left Atrial Appendage: ??Windsock morphology. ?? There is no apparent left atrial appendage filling defect. Left Ventricle: ??Cavity is normal in size. ?? Concentric left ventricular hypertrophy: ??None. Left ventricular ejection fraction: ??62%. Wall motion: ??Normal. Aorta: ??Aortic root measures 32.9mm Ascending aorta measures 33.0mm Pulmonary Vein: ??Four noted pulmonary veins. ??Two on the right and two on the left. ?? Pericardium: ??Normal thickness without significant effusion or calcium present. Cardiac Valves: ??No thickening and calcifications in the aortic and mitral valves. There is no mitral annular calcification. CORONARY ANATOMY Left Main: ??Normal. ??Bifurcates to form a left anterior descending and a left circumflex artery. Left Anterior Descending Artery: ??Patent with no evidence of plaque. Visualization of distal LAD suboptimal due to contrast timing but no visible plaque. It gives off 1 diagonal branch. First diagonal: ??Large caliber vessel. ??Patent with no evidence of plaque. Circumflex Artery: ??Non-dominant. ??Patent with no evidence of plaque. ??It gives off 2 obtuse marginal branches. First obtuse marginal: ??Large caliber vessel. ??Patent with no evidence of plaque. Second obtuse marginal: ??Moderate caliber vessel. ??Patent with no evidence of plaque. Right Coronary Artery: ??Dominant. ??Patent with no evidence of plaque. ??It terminates as a posterior descending and right posterolateral branch. Posterior descending artery: ??Large caliber vessel. ??Patent with no evidence of plaque. Right posterolateral branch: ??Large caliber vessel. ??Patent with no evidence of plaque. AORTIC VALVE Morphology: ??Trileaflet ADDITIONAL NON-CARDIAC STRUCTURES AND LUNGS READ BY RADIOLOGY COLLEAGUES. IMPRESSION Stenosis: No evidence of coronary stenosis or plaque. Plaque (Calcium Score): Total calcium score of zero indicating absence of calcified coronary plaque. Ejection Fraction: ??62%. Modifiers: None. RECOMMENDATION: CAD RADS score is 0- ??Reassurance. ??Consider non-atherosclerotic causes of symptoms. Interpreting Table Worker: ??ZINA DIAZ M.D. 05/17/23 Narrative 05/14/2023 5:08 PM CDT Examination: CTA coronary arteries with 3D imaging with contrast Exam date/time: 05/13/2023 1:19 PM ?? Clinical history: Precordial chest pain Technique: Multislice helical CT images of the proximal coronary arteries with a computer generated calcification score. ??Following calcium scoring, computed tomography was performed along the axial plane using CT arteriogram technique with thin 3 mm slices obtained during bolus intravenous administration of 80ml of Isovue 370contrast. Reconstruction and postprocessing imaging of the angiographic images was performed at the computer work station. 3-D angiographic postprocessing was performed at the workstation also. ??A dose lowering technique was used for this procedure, which may include, but is not limited to, dose reduction technique, automated exposure control, the use of iterative reconstruction, and ALARA (As Low As Reasonably Achievable) / Image Gently techniques. CT coronary angiography was performed at the direction of the cardiology service. The guide domestic tour is performing interpretation of the coronary artery vessels and heart. Interpretation of the surrounding lungs as well as mediastinal soft tissues is provided by the radiologist as below in addition to calcium scoring results. Comparison: None Calcium scoring results: Left main: 0 ?LAD: 0 Circumflex: 0 ? Right coronary: 0 ?? Total Score: 0 ? Calcium score guidelines: Total Score* Calcium Plaque [place] ??*Risk ?*Probability of significant CAD 0 ?No Plaque ?Very Low ?Very unlikely 1-10 ?Minimal Plaque ? Low ? Unlikely 11-100 ?Mild Plaque ?Moderate ? Low likelihood of significant ?stenosis <50% ? 101-400 ? Moderate Plaque ?Moderately High ? Moderate likelihood of ?significant stenosis (>50%) Over 400 ?Extensive Plaque ? High ?High likelihood of ? significant stenosis (>50%) The amount of coronary artery calcification correlates with the severity of coronary atherosclerosis and the probability of future significant event. Calcification is not site specific for stenosis and does not identify non-calcified atherosclerotic plaque, but rather indicates the extent of atherosclerosis in the coronary arteries overall. The score may be used as an indicator for risk factor modification or additional cardiac testing. Significant change in calcium score over time may be indicative of subsequent disease development or useful as a benchmark to assess preventative programs. CT Findings: 4 mm nodule right lung image 11 of series #9. ??2 mm nodule right lateral lung image 22. ??No pleural effusion. ??Minimal atelectasis. ?? Central airways are patent. ??No pericardial effusion. ??No acute abnormalities in the visualized upper abdomen. ===== IMPRESSION: ===== 1. ??Total calcium score 0. ??No plaque. ??Very unlikely probability of significant coronary artery disease. 2. ??Two pulmonary nodules both smaller than 6 mm. ??Fleischner Society recommends optional follow-up noncontrast chest CT in 12 months for high risk individuals. ??No specific follow-up indicated for low risk individuals. Any follow-up recommendations contained in this report for incidentally detected pulmonary nodules were made according to current recommended guidelines based at a minimum on nodule size and patient risk factors. Referred By: WILLIAM MELGOZA Interpreted By: Luis Enrique Bland MD, 05/14/2023 5:04 PM William Melgoza MD,PHD CT Edited R esult - Final documented in this encounter Visit Diagnoses Diagnosis Precordial pain- Primary BERMEO (dyspnea on exertion) Other dyspnea and respiratory abnormality Family history of premature CAD Family history of ischemic heart disease Precordial pain documented in this encounter Care Teams Drier And Pulverizer Tender Relationship Specialty Start Date End Date None, Provider, PCP - General 04/01/22 07/06/24 documented as of this encounter
--- OUTSIDE RECORDS SUMMARY | 2024-07-19 08:13 | XMS_ITS | Encounter Summary ---
Author Organization [facility] Address [address] [place] [address]. [place] [address] [place] [address] Care Team Providers Care Embedded Systems Developer Name Role Phone None, Provider Primary Care Provider Unavaila ble Reason for Visit * Reason Onset Date Comments Results 09/02/2022 Labs from 2 Encounter Details Date Type Department Care Team (Late st Contact Info) Description 09/02/2022 Telephone [facility], [address] [address] Kandace Velásquez RN Results (Labs from 03/29/22) Social History Tobacco Use Types Packs/Day Years [...] Progress Notes * Kandace Velásquez RN - 09/02/2022 4:52 PM CST Patient informed of the response and v/u. Patient had no further questions. HOUSE HANDLER * Kandace Velásquez RN - 09/02/2022 4:51 PM CST ----- Message from William Melgoza MD,PHD sent at 09/02/2022 12:42 PM WAREHOUSE HANDLER ----- No acute abnormality noted. HOUSE HANDLER documented in this encounter Plan of Treatment Upcoming Encounters Date Type Department Care Team (Late st Contact Info) Description 07/19/2024 1:00 PM WAREHOUSE HANDLER Appointment [facility] [address] [facility] [address] [place], [place] [phone] Chante Hamilton MD [address] [place], [place] [phone] 07/19/2024 2:30 PM WAREHOUSE HANDLER [facility]ment [facility] [place], [place] [phone] Chante Hamilton MD [address] [place], [place] [phone] 07/26/2024 7:40 AM WAREHOUSE HANDLER Laboratory Only [facility] Family Medicine - [place] [address] [place], [place] [phone] Chante Hamilton MD [address] [place] [id number] 09/05/2024 10:15 AM WAREHOUSE HANDLER Office Visit [facility] [address] [place] [address] Wilfrido Hobbs MD [facility] [address] [place], [place] [phone] documented as of this encounter Visit Diagnoses Not on filedocumented in this encounter Care Teams Embedded Systems Developer Relationship Specialty Start Date End Date None, Provider, PCP - General 04/01/22 07/06/24 documented as of this encounter
--- OUTSIDE RECORDS SUMMARY | 2024-07-19 08:13 | XMS_ITS | Encounter Summary ---
Author Organization [facility] Address [address] [place] [address]. [place] [address] [place] [address] Care Team Providers Care Water Meter Reader Name Role Phone None, Provider Primary Care Provider Unavaila ble Reason for Visit * Reason Onset Date Comments Results 05/27/2023 Encounter Details Date Type Department Care Team (Late st Contact Info) Description 05/27/2023 Telephone [facility] THREE [facility] [address] [place], [place] [phone] Anne Florence NP [facility] [address] [place] [address] Results Social History Tobacco Use Types Packs/Day [...] Progress Notes * Kandace Velásquez RN - 05/27/2023 1:30 PM CDT Patient informed of the recommendations and v/u. Patient had no further questions. * Kandace Velásquez RN - 05/27/2023 1:29 PM CDT ----- Message from Anne Florence NP sent at 05/22/2023 8:56 AM CDT ----- No plaque, unlikely cardiac causing CP Defer lung findings to PCP thanks documented in this encounter Plan of Treatment Upcoming Encounters Date Type Department Care Team (Late st Contact Info) Description 07/19/2024 1:00 PM JEWELRY DESIGNER Appointment [facility] [address] [facility] [address] [place], [place] [phone] Chante Hamilton MD [address] [place], [place] [phone] 07/19/2024 2:30 PM JEWELRY DESIGNER Appointment [facility] [address] [facility] [address] [place], [place] [phone] Chante Hamilton MD [address] [place], [place] [phone] 07/26/2024 7:40 AM JEWELRY DESIGNER Laboratory Only [facility] Family Medicine - [place] [address] [place], [place] [phone] Chante Hamilton MD [address] [place], [place] [phone] 09/05/2024 10:15 AM JEWELRY DESIGNER Office Visit [facility] [address] [place] [address] Wilfrido Hobbs MD [address] [place], [place] [phone] documented as of this encounter Visit Diagnoses Not on filedocumented in this encounter Care Teams Water Meter Reader Relationship Specialty Start Date End Date None, Provider, PCP - General 04/01/22 07/06/24 documented as of this encounter
--- OUTSIDE RECORDS SUMMARY | 2024-07-19 08:13 | XMS_ITS | Encounter Summary ---
Author Organization [facility] Address [address] [place] [address]. [place] [address] [place] [address] Care Team Providers Care Vice President Of Software Engineering Name Role Phone Chante Hamilton MD Primary Care Provider + Encounter Details Date Type Department Care Team (Latest Contact Info) Description 07/07/2024 Travel Social History Tobacco Use Types Packs/Day [...] st Contact Info) Description 07/19/2024 1:00 PM FAMILY MEDICINE PHYSICIAN [facility] [place] [address] Chante Hamilton MD [address] [facility] [address] [place] [id number] 07/19/2024 2:30 PM FAMILY MEDICINE PHYSICIAN [facility] [place] [address] Chante Hamilton MD [address] [place], [place] [phone] 07/26/2024 7:40 AM FAMILY MEDICINE PHYSICIAN Laboratory Only [facility] Family Medicine - [place] [address] [place], [place] [address] Chante Hamilton MD [address] [place], [place] [phone] 09/05/2024 10:15 AM FAMILY MEDICINE PHYSICIAN Office Visit [facility] [address] [place] [address] Wilfrido Hobbs MD [facility] [address] [place], [place] [phone] documented as of this encounter Visit Diagnoses Not on filedocumented in this encounter Care Teams Vice President Of Software Engineering Relationship Specialty Start Date End Date Chante Hamilton MD [address] [place], [place] [phone] PCP - General FAMILY PRACTICE 07/07/24 documented as of this encounter
--- OUTSIDE RECORDS SUMMARY | 2024-07-19 08:13 | XMS_ITS | Encounter Summary ---
Author Organization [facility] Address [address] [place] [address]. [place] [address] [place] [address] Care Team Providers Care Silverware Assembler Name Role Phone None, Provider Primary Care Provider Noea ble Encounter Details Date Type Department Care Team (Late Contact Info) Description 01/13/2023 Orders Only [facility], [facility] [address] [place], [place] [id number] William Melgoza MD,PHD Social History Tobacco Use Types Packs/Day Years [...] (Late Contact Info) Description 07/19/2024 1:00 PM PEST CONTROL APPLICATOR Appointment [facility] [place] [address] Chante Hamilton MD [address] [place] [address] 07/19/2024 2:30 PM PEST CONTROL APPLICATOR Appointment [facility] [address] [facility] [address] Chante Hamilton MD [address] [place], [place] [address] 07/26/2024 7:40 AM PEST CONTROL APPLICATOR Laboratory Only [facility] Family [facility] - [place] [address] [place], [place] [address] Chante Hamilton MD [address] [place], [place] [address] 09/05/2024 10:15 AM PEST CONTROL APPLICATOR Office Visit [place] [address] [place] [address] Wilfrido Hobbs MD Three [facility] [address] [place], [place] [id number] documented as of this encounter Results * (ABNORMAL) CREATININE (05/15/2023 2:37 PM CDT) CREATININE S/P/B 0.79 0.55 - 1.02 MG/DL 05/15/2023 3:06 PM CDT [facility] GFR ESTIMATE 83(L) >90 ML/MIN/1.7 3 M2 05/15/2023 3:06 PM CDT [facility] Comment: NOTE: eGFR is not calculated for patients <18 years of age. This is an estimated GFR calculation using the new CKD EPI creatinine equation without race and so does not require a correction factor for race. This estimated GFR should not be used for calculating drug doses. 05/15/2023 2:37 PM CDT William Melgoza MD,PHD LABORATORY Final Re sult Performing Organization Address City/[facility]/ZIP Co de Phone Number [facility] [address] [place] [address], [place] [phone] * BUN (05/15/2023 2:37 PM CDT) BUN 16 7 - 18 MG/DL 05/15/2023 3:06 PM CDT [facility] 05/15/2023 2:37 PM CDT William Melgoza MD,PHD LABORATORY Final Re sult Performing Organization Address [facility] Co de Phone Number [facility] [address] [place] [address], [place] [phone] documented in this encounter Visit Diagnoses Diagnosis Chest pain- Primary Chest pain, unspecified BERMEO (dyspnea on exertion) Other dyspnea and respiratory abnormality documented in this encounter Care Teams Silverware Assembler Relationship Specialty Start Date End Date None, Provider, PCP - General 04/01/22 07/06/24 documented as of this encounter
--- OUTSIDE RECORDS SUMMARY | 2024-07-19 08:13 | XMS_ITS | Encounter Summary ---
Author Organization [facility] Address [address] [place] [address]. 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 Appointment [facility] [address] [place], [place] [address] Chante Hamilton MD [address] [place] [address] 07/19/2024 2:30 PM RIVER DRIVER Appointment [facility] [place] [address] Chante Hamilton MD [address] [place] [address] 07/26/2024 7:40 AM RIVER DRIVER Laboratory Only [facility] Family [facility] - [place] [address] [place] [address] Chante Hamilton MD [address] [place] [address] 09/05/2024 10:15 AM RIVER DRIVER Office Visit [place] [facility] [place] [address] [place] [address] Wilfrido Hobbs MD Three [facility] [address] [place] [address] documented as of this encounter Procedures Procedure Name Priority Date/Time Associated Diagnosis Comments ECG 12-LEAD Routine 03/29/2022 documented in this encounter Results * ECG 12 lead (03/29/2022) us Default History Genericprovider ECG ORDERABLES Final Result documented in this encounter Visit Diagnoses Not on filedocumented in this encounter Care Teams Electronic Science Teacher Relationship Specialty Start Date End Date None, Provider, PCP - General 04/01/22 07/06/24 documented as of this encounter
--- OUTSIDE RECORDS SUMMARY | 2024-07-19 08:13 | XMS_ITS | Encounter Summary ---
Author Organization [facility] Address [address] [place] [address]. 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 [place]ment [place] [address] Chante Hamilton MD [address] [place] [address] 07/19/2024 2:30 PM GOLF BALL INSPECTOR Appointment [facility] [address] [place], [place] [address] Chante Hamilton MD [address] [place] [address] 07/26/2024 7:40 AM GOLF BALL INSPECTOR Laboratory Only [facility] Family [facility] - [place] [address] [place], [place] [address] Chante Hamilton MD [address] [place], [place] [address] 09/05/2024 10:15 AM GOLF BALL INSPECTOR Office Visit [place] [facility] [address] [place] [address] Wilfrido Hobbs MD [facility], [address] [place] [address] documented as of this encounter Visit Diagnoses Not on filedocumented in this encounter Care Teams Clinical Molecular Geneticist Relationship Specialty Start Date End Date None, Provider, PCP - General 04/01/22 07/06/24 documented as of this encounter
--- OUTSIDE RECORDS SUMMARY | 2024-07-19 08:13 | XMS_ITS | Encounter Summary ---
Author Organization [facility] Address [address] [place] [address]. [place] [address] [place] [address] Care Team Providers Care Electric Truck Crane Operator Name Role Phone None, Provider Primary Care Provider Unavaila ble Reason for Referral * Imaging (Routine) - Closed Specialty Diagnoses / Procedures Referred By [place] t Referred To Contact RADIOLOGY Diagnoses Precordial pain Procedures CTA CORONARY W SCORING Guerline Armstrong MD,PHD Referral ID Status Reason Start Date Expiration Date Visits Re quested Visits Authorized [id number] Closed 01/12/2023 02/12/2024 1 1 Reason for Visit * Imaging (Routine) - Closed Specialty Diagnoses / Procedures Referred By Contac t Referred To Contact RADIOLOGY Diagnoses Precordial pain Procedures CTA CORONARY W SCORING Guerline Armstrong MD,PHD Referral ID Status Reason Start Date Expiration Date Visits Re quested Visits Authorized [id number] Closed 01/12/2023 02/12/2024 1 1 Encounter Details Date Type Department Care Team (Latest Contact Info) Description 05/13/2023 12:43 PM CDT - 05/13/2023 11:59 PM CDT Hospital Encounter [facility] [place] [address] Guerline Armstrong MD,PHD Discharge Disposition: Home or Self Care [...] Sign Reading Time Taken Comments Blood Pressure 154/79 05/13/2023 1:45 PM CDT Pulse 67 05/13/2023 1:45 PM CDT Temperature - - Respiratory Rate 20 05/13/2023 1:45 PM CDT Oxygen Saturation 99% 05/13/2023 1:45 PM CDT Inhaled Oxygen Concentration - - Weight 73.9 kg (163 lb) 05/13/2023 1:00 PM CDT Height 149.9 cm (4' 11 ) 05/13/2023 1:00 PM CDT Body Mass Index 32.92 05/13/2023 1:00 PM CDT documented in this encounter Medications at Time of Discharge Cholecalciferol (VITAMIN D) 50 MCG (2000 UT) Cap Take 1 tablet by mouth daily. 06/03/2021 Saccharomyces boulardii (FLORASTORMAX) 500 MG Pack 03/24/2022 vitamin E 180 MG (400 UNIT) capsule Take 1 capsule (180 mg total) by mouth daily. documented as of this encounter Plan of Treatment Upcoming Encounters Date Type Department Care Team (Late st Contact Info) Description 07/19/2024 1:00 PM DRAFTER (CAD) ELECTRICAL Appointment [facility] [place] [address] Chante Hamilton MD [address] [facility] [address] [place] [address] 07/19/2024 2:30 PM DRAFTER (CAD) ELECTRICAL Appointment [facility] [place], [place] [address] Chante Hamilton MD [address] [address] 07/26/2024 7:40 AM DRAFTER (CAD) ELECTRICAL Laboratory Only [facility] Family [facility] - [place] [address] [place] [address] Chante Hamilton MD [address] [place], [place] [address] 09/05/2024 10:15 AM DRAFTER (CAD) ELECTRICAL Office Visit [place] [facility] [address] [place], [place] [phone] Wilfrido Hobbs MD Three [facility], [address] [place], [place] [address] documented as of this encounter Procedures Procedure Name Priority Date/Time Associated Diagnosis Comments CTA CORONARY W SCORING Routine 05/13/2023 1:35 PM CDT Precordial pain CREATININE WHOLE BLOOD Routine 05/13/2023 1:12 PM CDT documented in this encounter Results * CTA CORONARY W SCORING (05/13/2023 1:35 PM CDT) Anatomical Region Laterality Modality Chest Computed Tomogra phy, Radiographic Imaging 05/14/2023 5:04 PM CDT Addenda Addendum by Jaylon Diaz MD on 05/17/2023 8:01 PM CDT Table formatting from the original result was not included. CT ANGIOGRAM (Cardiology Portion) Patient Name: ??Karly Castellon : ??1960 Date of Study: ??05-13-2023 Interpreting Medical Insurance Claims Specialist: ??JAYLON DIAZ M.D. Indication: ??Evaluate coronaries History: ??63-year-old [...] ??Reassurance. ??Consider non-atherosclerotic causes of symptoms. Interpreting Medical Insurance Claims Specialist: ??JAYLON DIAZ M.D. 05/17/23 Narrative 05/14/2023 5:08 PM [...] the direction of the cardiology service. The v belt skiver is performing interpretation of the coronary artery vessels and heart. Interpretation of the surrounding lungs as well as mediastinal soft tissues is provided by the radiologist as below in addition to calcium scoring results. Comparison: None Calcium scoring results: Left main: 0 ?LAD: 0 Circumflex: 0 ? Right coronary: 0 ?? Total Score: 0 ? Calcium score guidelines: Total Score* Calcium Plaque Evans ??*Risk ?*Probability of significant CAD 0 ?No [...] size and patient risk factors. Referred By: GUERLINE ARMSTRONG Interpreted By: Luis Enrique Bland MD, 05/14/2023 5:04 PM us Guerline Armstrong MD,PHD CT Edited R esult - Final * CREATININE WHOLE BLOOD (05/13/2023 1:12 PM CDT) CREATININE WHOLE BLOOD 0.7 0.60 - 1.10 mg/dL 05/13/2023 1:17 PM CDT [facility] 05/13/2023 1:12 PM CDT Guerline Armstrong MD,PHD LABORATORY Final Re sult [facility] [address] [place] [address], [place] [phone] documented in this encounter Visit Diagnoses Diagnosis Precordial pain documented in this encounter Administered Medications Inactive Administered Medications - up to 3 most recent administrations Medication Order MAR Action Action Date Dose Rate Site iopamidol (ISOVUE-370) 76 % injection 80 mL 80 mL, Intravenous, IMG once as needed, Contrast, 1 dose, Starting on Thu05/13/23 at 1335, Until Thu05/13/23 at 1335 Given 05/13/2023 1:35 PM CDT 80 mLs Right Arm nitroglycerin (NITROSTAT) SL tablet Code/trauma/sedation medication, Starting on Thu05/13/23 at 1325, Until Thu05/13/23 at 1325 Given 05/13/2023 1:25 PM CDT 0.4 mg documented in this encounter Care Teams Electric Truck Crane Operator Relationship Specialty Start Date End Date None, Provider, PCP - General 04/01/22 07/06/24 documented as of this encounter
--- OUTSIDE RECORDS SUMMARY | 2024-07-19 08:13 | XMS_ITS | Encounter Summary ---
Author Organization [facility] Address [address] [place] [address]. [place], [place] [address] [place] [id number] Care Team Providers Care Toolroom Keeper Name Role Phone Chante Simon MD Primary Care Provider + Reason for Referral * Imaging (Routine) - New Request Specialty Diagnoses / Procedures Referred By Contac t Referred To Contact RADIOLOGY Diagnoses Post-menopausal Estrogen deficiency Procedures BONE DENSITY/DEXA Chante Simon MD [address] [place] [address] Phone: tel: fax: Referral ID Status Reason Start Date Expiration Date V isits Requested Visits Authorized [id number] New Request 07/07/2024 07/07/2025 1 1 ARIAL MANAGER * Imaging (Routine) - New Request Specialty Diagnoses / Procedures Referred By Contac t Referred To Contact RADIOLOGY Diagnoses Pulmonary nodules Procedures CT CHEST WO CON Chante Simon MD [address] [place] [address] Phone: tel: fax: Referral ID Status Reason Start Date Expiration Date V isits Requested Visits Authorized [id number] New Request 07/07/2024 07/08/2025 1 1 ARIAL MANAGER * Imaging (Routine) - New Request Specialty Diagnoses / Procedures Referred By Contnicolás t Referred To Contact RADIOLOGY Diagnoses Encounter for mammogram to establish baseline mammogram Procedures MG SCREENING W JANES BARB DIGI Chante Simon MD [address] [place] [address] Phone: tel: fax: Referral ID Status Reason Start Date Expiration Date V isits Requested Visits Authorized [id number] New Request 07/07/2024 09/06/2025 1 1 ARIAL MANAGER * Consultation (Routine) - New Request Specialty Diagnoses / Procedures Referred By Yris tsai Referred To Contact GENERAL SURGERY / SURGERY Diagnoses Colon cancer screening Chante Simon MD [address] [facility] [address] [place] [address] Phone: tel: fax: [facility] Medical [facility] General Surgery [address], [address] [place] [phone] Phone: tel: fax: Referral ID Status Reason Start Date Expiration Date V isits Requested Visits Authorized [id number] New Request 07/07/2024 08/07/2025 1 1 ARIAL MANAGER Reason for Visit * Reason Comments New Patient Here to get establis hed. Encounter Details Date Type Department Care Team (Late st Contact Info) Description 07/07/2024 9:30 AM ACTUARIAL MANAGER Office Visit [facility] Family Medicine - [place] [address] [place] [phone] Chante Simon MD [address] [place] [phone] New Patient (Here to get established.) Social History Tobacco Use Types Packs/Day Years [...] Sign Reading Time Taken Comments Blood Pressure 129/78 07/07/2024 9:13 AM ACTUARIAL MANAGER Pulse 92 07/07/2024 9:13 AM ACTUARIAL MANAGER Temperature 36.9 ??C (98.5 ??F) 07/07/2024 9:13 AM CS T Respiratory Rate - - Oxygen Saturation 99% 07/07/2024 9:13 AM ACTUARIAL MANAGER Inhaled Oxygen Concentration - - Weight 75.8 kg (167 lb 3.2 oz) 07/07/2024 9:13 A M ACTUARIAL MANAGER Height 149.9 cm (4' 11 ) 07/07/2024 9:13 AM ACTUARIAL MANAGER Body Mass Index 33.77 07/07/2024 9:13 AM ACTUARIAL MANAGER documented in this encounter Patient Instructions * Patient Instructions* Chante Simon MD - 07/07/2024 9:30 AM ACTUARIAL MANAGER Images from the original note were not included. High Fiber Diet About this topic Dietary fiber helps many illnesses. It can help you if you cannot have a bowel movement or if you have loose stools. Fiber can also lower your risk of diabetes and heart disease. Fiber can help with weight loss by helping you feel pleitez after meals. You can find fiber in fruits, vegetables, nuts and seeds, whole grains, and legumes. The fiber is the part of the plant food that your body cannot break down and absorb. It passes through your stomach, small bowel, colon, and out your body. There are two kinds of fiber: Insoluble and soluble fiber. Insoluble fiber helps you pass foods through your digestive system. Insoluble fiber can help you with hard stools. Soluble fiber draws waterin and turns it into a gel-like form making digestion slow down. Both are important. What will the results be? A high fiber diet can help you with bowel problems like stools that are too hard or too loose. It can also help prevent hemorrhoids and other colon problems. A high fiber diet can also help control your weight and lower blood sugar and cholesterol levels. What changes to diet are needed? The amount of fiber you need is based on your age, gender, and health. Try to get 20 to 35 grams of fiber in your diet each day. Most people in the [place] only eat 15 grams of fiber daily. Drink at least 8 cups (1920 mL) of fluid each day. When is this diet used? Your doctor may talk with you about this diet if you have belly problems. Who should use this diet? Older children, young people, and adults can have this diet. Who should not use this diet? Some people should not use this diet. Check with your doctor if you have: Diverticulitis Active Crohn's disease Ulcerative colitis Bowel inflammation Certain types of GI surgery Talk to your child's doctor before starting your child on a high fiber diet. What foods are good to eat? To get the most from fiber in your diet, eat a wide variety of high fiber foods. Some examples are: Vegetables like: Spinach Peas Artichoke Sweet potatoes with skin Broccoli Fruits like: Raspberries Blueberries Blackberries Apples with skin Dried fruits Grains like: Oat bran Barley Whole wheat products Wheat bran Dried beans and nuts like: Toole seeds Almonds Black beans Chickpeas What problems could happen? Sudden increase of fiber intake can lead to gas, pain, fullness in your belly, and loose stools. Increase fiber gradually while drinking plenty of fluids. Do not eat too much fiber. Your body will not take in vitamins and minerals as well if you eat too much fiber. When do I need to call the doctor? Health problem is not better or you are feeling worse. Helpful tips Start slow as you add more fiber to your diet. This may help prevent gas or cramps. Try to eat the same amount of fiber each day. Aim to get your fiber from nutritious foods. Supplements do not offer the same benefits as food. Read food labels with care to learn how much fiber is in the food you are eating. If possible, do not peel fruits or vegetables before you eat them. Eating the peel gives you more fiber. Last Reviewed Date 2021-04-25 Consumer Information Use and Disclaimer This generalized information is a limited summary of diagnosis, treatment, and/or medication information. It is not meant to be comprehensive and should be used as a tool to help the user understand and/or assess potential diagnostic and treatment options. It does NOT include all information about conditions, treatments, medications, side effects, or risks that may apply to a specific patient. Itis not intended to be medical advice or a substitute for the medical advice, diagnosis, or treatment of a health care provider based on the health care provider's examination and assessment of a patient???s specific and unique circumstances. Patients must speak with a health care provider for complete information about their health, medical questions, and treatment options, including any risks orbenefits regarding use of medications. This information does not endorse any treatments or medications as safe, effective, or approved for treating a specific patient. [employer] and its affiliates disclaim any warranty or liability relating to this information or the use thereof. The use of this information is governed by the Terms of Use, available at https://www.[employer].com/en/know/hscyfcig-tacwppetfanzd-yayix Copyright Copyright ?? 2022 [employer] and its affiliates and/or licensors. All rights reserved. ARIAL MANAGER documented in this encounter Progress Notes * Chante Simon MD - 07/07/2024 10:10 AM CSTAssociated Problem(s): Pulmonary nodules Ordered repeat CT of the chest without contrast to evaluate pulmonary nodules. ARIAL MANAGER * Chante Simon MD - 07/07/2024 9:30 AM CSTSummary: chronic SUBJECTIVE: Karly Castellon is a 64-year-old year old female who presents for establishing care. Problem Pulmonary Nodules Found incidentally on CTA chest in May 2023. Recommended repeat in 12 months. Mitral Valve Disorder She does follow with cardiology, Dr. Faby Mckeon. Sees him annually. Review of Systems Constitutional: Negative for activity change, appetite change, chills, diaphoresis, fatigue and fever. HENT: Negative for congestion, ear pain, hearing loss, nosebleeds, postnasal drip, rhinorrhea, sinus pressure, sinus pain, sneezing, sore throat, tinnitus and trouble swallowing. Eyes: Negative for pain, redness and visual disturbance. Respiratory: Negative for cough, choking, shortness of breath and wheezing. Cardiovascular: Negative for chest pain, palpitations and leg swelling. Gastrointestinal: Negative for abdominal pain, blood in stool, constipation, diarrhea, nausea and vomiting. Endocrine: Negative for cold intolerance, heat intolerance, polydipsia and polyuria. Genitourinary: Negative for difficulty urinating, dysuria, flank pain, frequency, hematuria and urgency. Musculoskeletal: Negative for arthralgias, back pain, joint swelling, myalgias and neck pain. Skin: Negative for rash. Neurological: Negative for dizziness, tremors, syncope, weakness, numbness and headaches. Psychiatric/Behavioral: Negative for agitation, confusion, dysphoric mood and sleep disturbance. The patient is not nervous/anxious. Patient's past medical history, medications, allergies, family [...] TOTAL ABDOM HYSTERECTOMY 1989 OBJECTIVE: Filed Vitals: 07/07/24 0913 BP: 129/78 Pulse: 92 Temp: 98.5 ??F (36.9 ??C) TempSrc: Temporal SpO2: 99% Weight: 75.8 kg (167 lb 3.2 oz) Height: 1.499 m (4' 11 ) Physical Exam Constitutional: Appearance: Normal appearance. HENT: Right Ear: Tympanic membrane and ear canal normal. Left Ear: Tympanic membrane and ear canal normal. Nose: Nose normal. Mouth/Throat: Mouth: Mucous membranes are dry. Pharynx: Oropharynx is clear. Eyes: Extraocular Movements: Extraocular movements intact. Conjunctiva/sclera: Conjunctivae normal. Pupils: Pupils are equal, round, and reactive to light. Cardiovascular: Rate and Rhythm: Normal rate and regular rhythm. Pulses: Normal pulses. Heart sounds: Normal heart sounds. Pulmonary: Effort: Pulmonary effort is normal. Breath sounds: Normal breath sounds. Chest: Breasts: Right: Normal. No mass or skin change. Left: Normal. No mass or skin change. Abdominal: General: Bowel sounds are normal. There is no distension. Palpations: Abdomen is soft. Tenderness: There is no abdominal tenderness. Musculoskeletal: General: No swelling or tenderness. Neurological: General: No focal deficit present. Mental Status: She is alert and oriented to person, place, and time. Psychiatric: Mood and Affect: Mood normal. Behavior: Behavior normal. No visits with results within 10 Day(s) [...] 64-year-old female presents to discuss with following. Prevention: - Cervical cancer screening s/p hsyterectomy - STD screening declined/not indicated - Colon cancer screening last performed at age 42. Ordered. - Diabetes screening ordered - Lipid panel screening ordered. - Discussed diet changes and exercise - Discussed safety, injury prevention, health, nutrition, immunizations, screenings - Breast cancer screening ordered at [facility] - Immunizations: Tdap 2020, Prevnar 20 encouarged, Shingrix discussed, and Flu declined - Depression screening: PHQ-2 Score: 0 - DEXA: Discussed calcium and vitamin D recommendations. Ordered DEXA. - HCPOA discussed. Code status FULL Problem List Items Addressed This Visit Pulmonary nodules Ordered repeat CT of the chest without contrast to evaluate pulmonary nodules. Relevant Orders CT CHEST WO CON COMPREHENSIVE METABOLIC PANEL Other Visit Diagnoses Colon cancer screening - Primary Relevant Orders Ambulatory referral to Gastroenterology Diabetes mellitus screening Relevant Orders HEMOGLOBIN, GLYCOSYLATED COMPREHENSIVE METABOLIC PANEL Screening cholesterol level Relevant Orders LIPID PANEL Encounter for mammogram to establish baseline mammogram Relevant Orders MG SCREENING W JANES BARB DIGI Post-menopausal Relevant Orders BONE DENSITY/DEXA Estrogen deficiency Relevant Orders BONE DENSITY/DEXA I personally spent a total of 46 minutes on the day of the encounter. This includes mehf-uh-wsbi and fmm-kmdt-xi-face time I provided on the day of the encounter & excludes time spent performing separately reportable services. Lab: None Specified Return in about 1 year (around 07/07/2025) for chronic disease, [facility] same day. CHANTE SIMON MD Family Practice ARIAL MANAGER documented in this encounter Plan of Treatment Upcoming Encounters Date Type Department Care Team (Late st Contact Info) Description 07/19/2024 1:00 PM ACTUARIAL MANAGER Appointment [facility] [place] [address] Chante Simon MD [address] [place] [address] [phone] 07/19/2024 2:30 PM ACTUARIAL MANAGER Appointment [facility] [place] [address] Chante Simon MD [address] [place] [address] 07/26/2024 7:40 AM ACTUARIAL MANAGER Laboratory Only [facility] Family Medicine - [place] [address] [place] [address] Chante Simon MD [address] [place] [address] 09/05/2024 10:15 AM ACTUARIAL MANAGER Office Visit [facility] [address] [place] [address] Wilfrido Hobbs MD Three [facility], [address] [place] [address] Scheduled Orders Name Type Priority Associated Diagnoses Orde r Schedule HEMOGLOBIN, GLYCOSYLATED Lab Today Diabetes mellitus screening Expected: 07/07/2024, Expires: 07/07/2025 LIPID PANEL Lab Today Screening cholesterol level Expected: 07/07/2024, Expires: 07/07/2025 MG SCREENING W JANES BARB DIGI MAMMO Routine Encounter for mammogram to establish baseline mammogram Expected: 07/07/2024, Expires: 09/07/[address] CT CHEST WO CON CT Routine Pulmonary nodules Expected: 07/07/2024, Expires: 07/07/2025 BONE DENSITY/DEXA DEXA Routine Post-menopausal Estrogen deficiency Expected: 07/07/2024, Expires: 08/07/2025 COMPREHENSIVE METABOLIC PANEL Lab Today Diabetes mellitus screening Pulmonary nodules Expected: 07/07/2024, Expires: 07/07/2025 Scheduled Referrals Name Type Priority Associated Diagnoses Orde r Schedule Ambulatory referral to Gastroenterology Referral Routine Colon cancer screening Ordered: 07/07/2024 documented as of this encounter Visit Diagnoses Diagnosis Colon cancer screening- Primary Special screening for malignant neoplasms, colon Diabetes mellitus screening Screening for diabetes mellitus Screening cholesterol level Screening for lipoid disorders Encounter for mammogram to establish baseline mammogram Other screening mammogram Pulmonary nodules Other nonspecific abnormal finding of lung field Post-menopausal Asymptomatic postmenopausal status (age-related) (natural) Estrogen deficiency Other ovarian failure documented in this encounter Care Teams Toolroom Keeper Relationship Specialty Start Date End Date Chante Simon MD [address] [place] [address] PCP - General FAMILY PRACTICE 07/07/24 documented as of this encounter
--- OUTSIDE RECORDS SUMMARY | 2024-07-19 08:14 | XMS_ITS | Encounter Summary ---
Author Organization [facility] Address [address] [place] [address]. [place] [address] [place] [address] Care Team Providers Care Gaming Manager Name Role Phone None, Provider Primary Care Provider Unavaila ble Reason for Visit * Reason Onset Date Comments Results 04/10/2022 Lipids Encounter Details Date Type Department Care Team ([facility] st Contact Info) Description 04/10/[address] [phone] Kandace Velásquez, RN Results (Lipids) Social History Tobacco Use Types Packs/Day Years [...] Progress Notes * Kandace Velásquez RN - 04/10/2022 4:05 PM CDT ----- Message from William Melgoza MD,PHD sent at 04/10/2022 3:26 PM CDT ----- No acute abnormality noted on lipids. Patient informed of the response and v/u. Patient had no further questions. documented in this encounter Plan of Treatment Upcoming Encounters Date Type Department Care Team (Late st Contact Info) Description 07/19/2024 1:00 PM STAFFING EXECUTIVE Appointment [facility] [address] [place] [address] Chante Hamilton MD [address] [place] [phone] 07/19/2024 2:30 PM STAFFING EXECUTIVE [facility]ment [facility] [address] [place] [address] Chante Hamilton MD [address] [place] [address] [phone] 07/26/2024 7:40 AM STAFFING EXECUTIVE Laboratory Only [facility] Family Medicine - [place] [address] [place] [address] Chante Hamilton MD [address] [place] [address] [phone] 09/05/2024 10:15 AM STAFFING EXECUTIVE Office Visit [place] [facility] [address] [place], [place] [phone] Wilfrido Hobbs MD Three [facility] [address] [place] [address] documented as of this encounter Visit Diagnoses Not on filedocumented in this encounter Care Teams Gaming Manager Relationship Specialty Start Date End Date None, Provider, PCP - General 04/01/22 07/06/24 documented as of this encounter
--- OUTSIDE RECORDS SUMMARY | 2024-07-19 08:14 | XMS_ITS | Encounter Summary ---
Author Organization [facility] Address [address] [place] [address]. [place], [place] [address] [place] [address] Care Team Providers Care Handyman Name Role Phone None, Provider Primary Care Provider Chante Gee MD Primary Care Provider + Encounter Details Date Type Department Care Team (Late Contact Info) Description 04/10/2022 Abstract [facility] [address] [facility], [address] [address] Anshu Mendez MA Social History Tobacco Use [...] (Late Contact Info) Description 07/19/2024 1:[address] LOCKSMITH Appointment [facility] [place] [address] Chante Hamilton MD [address] [place] [address] [phone] 07/19/2024 2:[address] LOCKSMITH Appointment [facility] [place] [address] Chante Hamilton MD [address] [place] [phone] 07/26/2024 7:[address] LOCKSMITH Laboratory Only [facility] Family Medicine - [place] [address] [place] [address] [phone] Chante Hamilton MD [address] [facility] [address] [place] [address] [phone] 09/05/2024 10:[address] LOCKSMITH Office Visit [place] [facility] [address] [place] [address] Wilfrido Hobbs MD Three [facility] [address] [place], [place] [address] documented as of this encounter Procedures Procedure Name Priority Date/Time Associated Diagnosis Comments LIPID PANEL Routine 04/09/2022 documented in this encounter Results * LIPID PANEL (04/09/2022) CHOLESTEROL 208 HDL 52 TRIGLYCERIDES 141 DIRECT LDL 116 04/09/2022 us Doc [facility] Abstract LABORATORY Final Result documented in this encounter Visit Diagnoses Not on filedocumented in this encounter Care Teams Handyman Relationship Specialty Start Date End Date None, Provider, PCP - General 04/01/22 07/06/24 Chante Hamilton MD [address] [place] [address] PCP - General FAMILY PRACTICE 07/07/24 documented as of this encounter
--- OUTSIDE RECORDS SUMMARY | 2024-07-19 08:14 | XMS_ITS | Encounter Summary ---
Author Organization [facility] Address [address] [place] [address]. [place] [address] [place] [address] Care Team Providers Care Divinity Teacher Name Role Phone None, Provider Primary Care Provider Ryan ble Encounter Details Date Type Department Care Team (Late st Contact Info) Description 03/29/2022 Scan [facility] [address] [address] Scanned, Documents Social History Tobacco Use Types Packs/Day Years Used Date Smoking Tobacco: Never Assessed Comments Unknown Sex and Gender Information Value Date Recorded Sex Assigned at Not on file Legal Sex Female 5:18 PM CDT Gender Identity Not on file Sexual Orientation Not on file documented as of this encounter Plan of Treatment Upcoming Encounters Date Type Department Care Team (Late st Contact Info) Description 07/19/2024 1:00 PM DIRECTOR OF GROUP SALES [place]ment [place] [address] Chante Hamilton MD [address] [place] [address] [phone] 07/19/2024 2:30 PM DIRECTOR OF GROUP SALES Appointment [facility] [place] [address] Chante Hamilton MD [address] [phone] 07/26/2024 7:40 AM DIRECTOR OF GROUP SALES Laboratory Only [facility] Family Medicine - [place] [address] [place] [address] Chante Hamilton MD [address] [place] [address] 09/05/2024 10:15 AM DIRECTOR OF GROUP SALES Office Visit [place] [facility] [address] [place] [address] Wilfrido Hobbs MD [facility], [address] [place], [place] [phone] documented as of this encounter Visit Diagnoses Not on filedocumented in this encounter Care Teams Divinity Teacher Relationship Specialty Start Date End Date None, Provider, PCP - General 04/01/22 07/06/24 documented as of this encounter
--- OUTSIDE RECORDS SUMMARY | 2024-07-19 08:14 | XMS_ITS | Encounter Summary ---
Author Organization [facility] Address [address] [place] [address]. [place] [address] [place] [address] Care Team Providers Care Data Coder Operator Name Role Phone None, Provider Primary Care Provider Ryan ble Encounter Details Date Type Department Care Team (Late st Contact Info) Description 03/29/2022 Scan [facility] [address] [address] Scanned, Documents Social History Tobacco Use Types [...] st Contact Info) Description 07/19/2024 1:00 PM TELECASTING TECHNICIAN [place] [address] Chante Hamilton MD [address] [place] [address] [phone] 07/19/2024 2:30 PM TELECASTING TECHNICIAN Appointment [facility] [place] [address] Chante Hamilton MD [address] [phone] 07/26/2024 7:40 AM TELECASTING TECHNICIAN Laboratory Only [facility] Family Medicine - [place] [address] [place] [address] Chante Hamilton MD [address] [place] [address] 09/05/2024 10:15 AM TELECASTING TECHNICIAN Office Visit [place] [facility] [address] [place] [address] Wilfrido Hobbs MD Three [facility], [address] [place], [place] [phone] documented as of this encounter Procedures Procedure Name Priority Date/Time Associated Diagnosis Comments ECG GENERIC (SCAN ORDER) Routine 03/29/2022 documented in this encounter Results * ECG (03/29/2022) us Documents Scanned SCANNING Final Result [facility] documented in this encounter Visit Diagnoses Not on filedocumented in this encounter Care Teams Data Coder Operator Relationship Specialty Start Date End Date None, Provider, PCP - General 04/01/22 07/06/24 documented as of this encounter
--- OUTSIDE RECORDS SUMMARY | 2024-07-19 08:14 | XMS_ITS | Encounter Summary ---
Author Organization [facility] Address [address] [place] [address]. [place] [address] [place] [address] Care Team Providers Care Plater Apprentice Name Role Phone None, Provider Primary Care Provider Ryan ble Encounter Details Date Type Department Care Team (Late st Contact Info) Description 03/29/2022 [facility] [address] [address] Scanned, Documents Social History Tobacco Use Types [...] st Contact Info) Description 07/19/2024 1:00 PM INSULATION WORKER APPRENTICE Appointment [place] [address] Chante Hamilton MD [address] [place] [id number] 07/19/2024 2:30 PM INSULATION WORKER APPRENTICE [facility]ment [facility] [place] [address] Chante Hamilton MD [address] [phone] 07/26/2024 7:40 AM INSULATION WORKER APPRENTICE Laboratory Only [facility] Family Medicine - [place] [address] [place] [address] Chante Hamilton MD [address] [place] [address] 09/05/2024 10:15 AM INSULATION WORKER APPRENTICE Office Visit [facility] [address] [place] [address] Wilfrido Hobbs MD [facility], [address] [place], [place] [id number] Scheduled Orders Name Type Priority Associated Diagnoses Orde r Schedule IMAGE STUDY Imaging Routine Ordered: 08/2021 documented as of this encounter Visit Diagnoses Not on filedocumented in this encounter Care Teams Plater Apprentice Relationship Specialty Start Date End Date None, Provider, PCP - General 04/01/22 07/06/24 documented as of this encounter
--- OUTSIDE RECORDS SUMMARY | 2024-07-19 08:14 | XMS_ITS | Encounter Summary ---
Author Organization [facility] Address [address] [place] [address]. [place] [address] [place] [address] Care Team Providers Care Translational Specialist Name Role Phone None, Provider Primary Care Provider Ryan ble Encounter Details Date Type Department Care Team (Latest Contact Info) Description 04/04/2022 Travel Social History Tobacco Use Types Packs/Day [...] st Contact Info) Description 07/19/2024 1:00 PM P[address] INTERPRETER [facility]oint[address] [facility] [address] [place], [place] [address] Chante Hamilton MD [address] [place] [address] 07/19/2024 2:30 PM P[address] INTERPRETER [facility] [facility] [address] [facility] [place] [address] Chante Hamilton MD [address] [place] [address] 07/26/2024 7:40 AM PARK INTERPRETER Laboratory Only [facility] Family Medicine - [place] [address] [place], [place] [address] Chante Hamilton MD [address] [place] [address] 09/05/2024 10:15 AM PARK INTERPRETER Office Visit [facility] [address] [place] [address] Wilfrido Hobbs MD [facility] [address] [place] [address] documented as of this encounter Visit Diagnoses Not on filedocumented in this encounter Care Teams Translational Specialist Relationship Specialty Start Date End Date None, Provider, PCP - General 04/01/22 07/06/24 documented as of this encounter
--- OUTSIDE RECORDS SUMMARY | 2024-07-19 08:14 | XMS_ITS | Encounter Summary ---
Author Organization [facility] Address [address] [place] [address]. [place] [address] [place] [address] Care Team Providers Care Customer Care Specialist Name Role Phone None, Provider Primary Care Provider Unavaila ble Reason for Visit * Reason Comments Chest Pain Consult Encounter Details Date Type Department Care Team (Late st Contact Info) Description 04/04/2022 2:30 PM CDT Office Visit [facility] [address] [address] William Melgoza MD,PHD Chest Pain (Consult) Social History Tobacco Use Types Packs/Day Years [...] Sign Reading Time Taken Comments Blood Pressure 102/80 04/04/2022 2:30 PM CDT Pulse 94 04/04/2022 2:30 PM CDT Temperature - - Respiratory Rate - - Oxygen Saturation 97% 04/04/2022 2:30 PM CDT Inhaled Oxygen Concentration - - Weight 73 kg (161 lb) 04/04/2022 2:30 PM CDT Height 149.9 cm (4' 11 ) 04/04/2022 2:30 PM CDT Body Mass Index 32.52 04/04/2022 2:30 PM CDT documented in this encounter Patient Instructions * Attachments The following attachments cannot be sent through Care Everywhere. * Chest Pain (Australian) * Cardiac Stress Test (Australian) documented in this encounter Progress Notes * William Melgoza MD,PHD - 04/04/2022 2:30 PM CDT Images from the original note were not included. [place], [place] [address] Reason for Visit: Chest Pain (Consult) History of Present Illness: Mrs. 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 where acute coronary syndrome was ruled out. Prior to the episode of chest discomfort she had been experiencing persistent diarrhea after discontinuing diet Pepsi. She was evaluated by GI advanced practice practitioner who started tomer metronidazole with improvement in the diarrhea. She then noticed that his urine was dark and underwent evaluation at [facility] where she was treated for dehydration. A week later she presented on 03/29/[address] [facility] with chest pain. The discomfort was radiated to the left arm and was retrosternal in nature. She does experience some dyspnea on exertion while she is cleaning the 25,000 square foot mention where she works. The patient does not have orthopnea, paroxysmal nocturnal dyspnea, lower extremity edema, presyncope or syncope. Occasionally she does experience abdominal discomfort due to irritable bowel syndrome. There isno history of hematochezia or hematuria. There is no prior history of TIA, ischemic stroke or intracranial hemorrhage. The patient's brother had a myocardial infarction at the age of 49 and underwent PCI. Her older brother of a myocardial infarction at the age of 67. The patient quit tobacco in 1979. Recommendations and Plan: Chest discomfort: 1. There is a family history of premature coronary artery disease. 2. The patient will undergo further risk ratification with exercise stress echocardiography. 3. The patient will undergo a transthoracic echocardiogram. 4. The patient will undergo a lipid panel. Family history of premature coronary artery disease: 1. The patient will undergo a lipid panel. Medications: Current Outpatient Medications: ??? Cholecalciferol (VITAMIN D) 50 MCG (1999 UT) Cap, Take 1 tablet by mouth daily., Disp: , Rfl: Allergies Allergen Reactions ??? Penicillins Hives ??? Diphenhydramine Hcl Palpitations Past Medical History: Diagnosis Date ??? Mitral valve disorder ??? Precordial pain Past Surgical History: Procedure Laterality Date ??? TOTAL ABDOM HYSTERECTOMY 1989 Social History Tobacco Use ??? Smoking status: Former Smoker Quit date: 1979 Years since quittin.6 ??? Smokeless tobacco: Never Used Substance Use Topics ??? Alcohol use: Not [...] and new or significant memory loss. Vitals: 04/04/22 1430 BP: 102/80 Pulse: 94 Weight: 73 kg (161 lb) Height: 4' 11 (1.499 m) Body mass index is 32.52 kg/m??. Cardiac Exam Rate/Rhythm: Normal rate and [...] affect. Normal motor skills. Normal gait. Comments: No flowsheet data found. No results found for this visit on 04/04/22. Imaging: No image results found. Diagnoses/Impression: 1. Precordial pain USE STRESS ECHO INCLUDING S AND I USE ECHOCARDIOGRAM LIPID PANEL 2. BERMEO (dyspnea on exertion) USE STRESS ECHO INCLUDING S AND I USE ECHOCARDIOGRAM 3. Family history of premature CAD LIPID PANEL Thank you for the privilege of participating in the care of Ms. Karly Castellon. If you do have any additional questions or requests, please do not hesitate to contact me or our team at [facility]. William Melgoza MD,PHD Referring Provider: No ref. provider found PCP: Anne Morton MD documented in this encounter Plan of Treatment Upcoming Encounters Date Type Department Care Team (Late st Contact Info) Description 07/19/2024 1:00 PM PROPOSAL REP Appointment [place] [address] [facility] [place] [address] Chante Hamilton MD [address] [place] [address] 07/19/2024 2:30 PM PROPOSAL REP Appointment [place] [place] [address] Chante Hamilton MD [address] [place], [place] [id number] 07/26/2024 7:40 AM PROPOSAL REP Laboratory Only [facility] Family Medicine - [place] [address] [place], [place] [address] Chante Hamilton MD [address] [place] [address] 09/05/2024 10:15 AM PROPOSAL REP Office Visit [facility] [address] [place] [address] Wilfrido Hobbs MD Three [facility] [address] [place], [place] [id number] documented as of this encounter Visit Diagnoses Diagnosis Precordial pain- Primary BERMEO (dyspnea on exertion) Other dyspnea and respiratory abnormality Family history of premature CAD Family history of ischemic heart disease documented in this encounter Care Teams Customer Care Specialist Relationship Specialty Start Date End Date Praveen, MD Anne PCP - General 04/01/22 07/06/24 documented as of this encounter
--- OUTSIDE RECORDS SUMMARY | 2024-07-19 08:14 | XMS_ITS | Encounter Summary ---
Author Organization [facility] Address [address] [place] [address]. [place] [address] [place] [address] Care Team Providers Care Shredding Specialist Name Role Phone None, Provider Primary Care Provider Unavaila ble Reason for Visit * Reason Onset Date Comments Information 04/01/2022 [facility] / records received Encounter Details Date Type Department Care Team (Late st Contact Info) Description 04/01/2022 Telephone [facility] THREE [facility], [address] [address] William Melgoza MD,PHD Information ([facility] / records received) Social History Tobacco Use Types Packs/Day Years Used Date Smoking Tobacco: Never Assessed Comments Unknown Sex and Gender Information Value Date Recorded Sex Assigned at Not on file Legal Sex Female 5:18 PM CDT Gender Identity Not on file Sexual Orientation Not on file documented as of this encounter Progress Notes * Eden Davis - 04/01/2022 2:22 PM CDT 04/01/22 Records received from [facility]: 03/29/22 ER note, ekg, labs, CXR. documented in this encounter Plan of Treatment Upcoming Encounters Date Type Department Care Team (Late st Contact Info) Description 07/19/2024 1:00 PM DETACHER Appointment [place] [address] Chante Hamilton MD [address] [place], [place] [address] 07/19/2024 2:30 PM DETACHER Appointment [place] [address] [facility] [place] [address] Chante Hamilton MD [address] [place], [place] [address] 07/26/2024 7:40 AM DETACHER Laboratory Only [facility] Family Medicine - [place] [address] [place], [place] [address] Chante Hamilton MD [address] [place], [place] [address] 09/05/2024 10:15 AM DETACHER Office Visit [facility] [address] [place] [address] Wilfrido Hobbs MD Three [facility] [address] [place], [place] [id number] documented as of this encounter Visit Diagnoses Not on filedocumented in this encounter Care Teams Shredding Specialist Relationship Specialty Start Date End Date None, Provider, PCP - General 04/01/22 07/06/24 documented as of this encounter
--- OUTSIDE RECORDS SUMMARY | 2024-07-19 08:18 | XMS_ITS | Encounter Summary ---
Author Organization [facility] Address [address] [place] [address] Phone Care Team Providers Care Technician Terminal And Repeater Name Role Phone Provider, None Primary Care Provider Unavailabl e Encounter Details Date Type Department Care Team (Latest Contact Info) Description 11/14/2021 2:00 PM CDT - 11/14/2021 11:59 PM CDT Hospital Encounter [facility] - [facility] - [place] [address] [place] [phone] Dena Malloy, LAY OUT WORKER, ELECTRIC SHAVER MECHANIC [address] [place], [place] [phone] Discharge Disposition: Discharged to home or Selfcare Social History Tobacco Use Types Packs/Day Years Used Date Smoking Tobacco: Never Smokeless Tobacco: Never Alcohol Use Standard Drinks/Week Comments Not Currently 0 (1 standard drink = 0.6 oz pur e alcohol) Sexually Active Control Partners Comments Not Currently Comments No Sex and Gender Information Value Date Recorded Sex Assigned at Not on file Legal Sex Female 2:37 PM COUNTER PERSON Gender Identity Not on file Sexual Orientation Not on file COVID-19 Exposure Response Date Recorded In the last 10 days, have yo u been in contact with someone who was confirmed or suspected to have Coronavirus/COVID-19? No / Unsure 11/14/2021 12:25 PM CDT documented as of this encounter Plan of Treatment Not on file documented as of this encounter Procedures Procedure Name Priority Date/Time Associated Diagnosis Comments XR FINGER(S) MIN 2 VIEWS LT Stat with Interpretation 11/14/2021 2:24 PM CDT Finger mass, left documented in this encounter Results * XR FINGER(S) MIN 2 VIEWS LT (11/14/2021 2:24 PM CDT) Anatomical Region Laterality Modality UPPER EXTREMITY, Fingers N/A Digital Radiography 11/14/2021 2:32 PM CDT Impressions 11/14/2021 2:35 PM CDT IMPRESSION: ?? Focal swelling at the palmar ??aspect of the long finger, just proximal to the distal interphalangeal joint. ??No radiopaque foreign body and no adjacent osseous destruction. Narrative 11/14/2021 2:35 PM CDT EXAM DESCRIPTION: ?? XR FINGER(S) MIN 2 VIEWS LT REASON FOR STUDY: ?? Painful lump of left 3rd finger x1 month. ?? History of splinter at this site 8 months ago. TECHNIQUE: ?? AP and lateral ??views acquired of the left ?? long finger COMPARISON: ?? None available FINDINGS: BONES/JOINTS: ?? No acute fracture, malalignment or osseous abnormalities. ? Joint spaces are maintained. SOFT TISSUES: ?? There is focal swelling at the palmar aspect of the long finger, just proximal to the distal interphalangeal joint. ?? There is no adjacent bony erosion. ??No radiopaque foreign body is identified. OTHER: ?? No other significant finding. THIS IS AN ELECTRONICALLY VERIFIED FINAL REPORT 11/14/2021 2:32 PM - Electronically signed by ??Alfred Alicea M.D. MZ: [id number] D: ??11/14/2021 2:32 PM T: ??11/14/2021 2:32 PM Report ID: [id number] Reading Location: ??[id number] Procedure Note Alfred Alicea MD - 11/14/2021 EXAM DESCRIPTION: XR FINGER(S) MIN 2 VIEWS LT REASON FOR STUDY: Painful lump of left 3rd finger x1 month. History of splinter at this site 8 months ago. TECHNIQUE: AP and lateral views acquired of the left long finger COMPARISON: None available FINDINGS: BONES/JOINTS: No acute fracture, malalignment or osseous abnormalities. Joint spaces are maintained. SOFT TISSUES: There is focal swelling at the palmar aspect of the long finger, just proximal to the distal interphalangeal joint. There is no adjacent bony erosion. No radiopaque foreign body is identified. OTHER: No other significant finding. THIS IS AN ELECTRONICALLY VERIFIED FINAL REPORT 11/14/2021 2:32 PM - Electronically signed by Alfred Alicea M.D. MZ: [email or web address] Report ID: [id number] Reading Location: [id number] IMPRESSION: Focal swelling at the palmar aspect of the long finger, just proximal to the distal interphalangeal joint. No radiopaque foreign body and no adjacent osseous destruction. us Dena Malloy LAY OUT WORKER, ELECTRIC SHAVER MECHANIC IMG DIAGNOSTIC ORDE DAV Final Result documented in this encounter Visit Diagnoses Not on filedocumented in this encounter Care Teams Technician Terminal And Repeater Relationship Specialty Start Date End Date Provider, None [place] PCP - General 07/25/21 documented as of this encounter
--- OUTSIDE RECORDS SUMMARY | 2024-07-19 08:18 | XMS_ITS | Encounter Summary ---
Author Organization [facility] Address [address] [place] [address] Phone Care Team Providers Care Lavatory Attendant Name Role Phone Provider, None Primary Care Provider Unavailabl e Reason for Visit * Reason Onset Date Comments Stye 08/01/2021 possible Encounter Details Date Type Department Care Team (Late st Contact Info) Description 08/01/2021 Nurse Triage [facility] [address] [place] [address] Provider, None [facility] (possible) Social History Tobacco Use Types Packs/Day Years Used Date Smoking Tobacco: Never Smokeless Tobacco: Never Alcohol Use Standard Drinks/Week Comments Not Currently 0 (1 standard drink = 0.6 oz pur e alcohol) Comments Unknown Sex and Gender Information Value Date Recorded Sex Assigned at Not on file Legal Sex Female 2:37 PM PRINCIPAL LIBRARIAN Gender Identity Not on file Sexual Orientation Not on file COVID-19 Exposure Response Date Recorded In the last month, have you been in contact with someone who was confirmed or suspected to have Coronavirus / COVID-19? No / Unsure 07/25/2021 2:38 PM PRINCIPAL LIBRARIAN documented as of this encounter Miscellaneous Notes * Telephone Encounter - Katia Mark RN - 08/01/2021 5:29 PM CST S: Bump on inner eyelid B: Caller was treated for eye infection at [facility] 07/25 foracute bacterial conjunctivitis of the left eye. Was ordered erythromycin ointment. Now has a bump on the inside of the left eyelid. Caller noted last night. A: has a small reddened bump with a head on it in side the eye lid. She has to pull the eye lid down to look at it. Does not hurt or itch. R: need evaluation Nurse advised not sure if the bump is considered a stye. Physician can determine this and if she should continue the eye ointment past 7 days for bump on the inner eyelid. Reason for Disposition ??? Sty on eyelid Protocols used: STY-A-AH CIPAL LIBRARIAN documented in this encounter Plan of Treatment Not on file documented as of this encounter Visit Diagnoses Not on filedocumented in this encounter Care Teams Lavatory Attendant Relationship Specialty Start Date End Date Provider, None [place] PCP - General 07/25/21 documented as of this encounter
--- OUTSIDE RECORDS SUMMARY | 2024-07-19 08:18 | XMS_ITS | Encounter Summary ---
Author Organization [facility] Address [address] [place] [address] Phone Care Team Providers Care Artillery Officer Name Role Phone Provider, None Primary Care Provider Unavailabl e Reason for Visit * Reason Comments Cellulitis left eye Encounter Details Date Type Department Care Team (Latest Contact Info) Description 07/25/2021 2:40 PM COLLEGE INSTRUCTOR [facility] [address] [place] [address] Dena Malloy, WEB ADMINISTRATOR, DIETITIAN TEACHER [address] [place] [address] Acute bacterial conjunctivitis of left eye (Primary Dx) Discharge Disposition: Discharged to home or Selfcare Social History Tobacco Use Types Packs/Day Years Used Date Smoking Tobacco: Never Smokeless Tobacco: Never Alcohol Use Standard Drinks/Week Comments Not Currently 0 (1 standard drink = 0.6 oz pur e alcohol) Comments Unknown Sex and Gender Information Value Date Recorded Sex Assigned at Not on file Legal Sex Female 2:37 PM COLLEGE INSTRUCTOR Gender Identity Not on file Sexual Orientation Not on file COVID-19 Exposure Response Date Recorded In the last month, have you been in contact with someone who was confirmed or suspected to have Coronavirus / COVID-19? No / Unsure 07/25/2021 2:38 PM COLLEGE INSTRUCTOR documented as of this encounter Last Filed Vital Signs Vital Sign Reading Time Taken Comments Blood Pressure 146/80 07/25/2021 3:57 PM COLLEGE INSTRUCTOR Pulse 97 07/25/2021 3:57 PM COLLEGE INSTRUCTOR Temperature 36.8 ??C (98.2 ??F) 07/25/2021 3:57 PM CS T Respiratory Rate 18 07/25/2021 3:57 PM COLLEGE INSTRUCTOR Oxygen Saturation 96% 07/25/2021 3:57 PM COLLEGE INSTRUCTOR Inhaled Oxygen Concentration - - Weight - - Height - - Body Mass Index - - documented in this encounter Patient Instructions * Patient Instructions* Dena Malloy, JORGE, BHARTI - 07/25/2021 2:40 PM COLLEGE INSTRUCTOR Images from the original note were not included. Bacterial Conjunctivitis, Adult Bacterial conjunctivitis is an infection of your conjunctiva. This is the clear membrane that covers the white part of your eye and the inner part of your eyelid. This infection can make your eye: ?? Red or pink. ?? Itchy. This condition spreads easily from person to person (is contagious) and from one eye to the other eye. What are the causes? ?? This condition is caused by germs (bacteria). You may get the infection if you come into close contact with: ? A person who has the infection. ? Items that have germs on them (are contaminated), such as face towels, contact lens solution, or eye makeup. What increases the risk? You are more likely to get this condition if you: ?? Have contact with people who have the infection. ?? Wear contact lenses. ?? Have a sinus infection. ?? Have had a recent eye injury or surgery. ?? Have a weak body defense system (immune system). ?? Have dry eyes. What are the signs or symptoms? ?? Thick, yellowish discharge from the eye. ?? Tearing or watery eyes. ?? Itchy eyes. ?? Burning feeling in your eyes. ?? Eye redness. ?? Swollen eyelids. ?? Blurred vision. How is this treated? ?? Antibiotic eye drops or ointment. ?? Antibiotic medicine taken by mouth. This is used for infections that do not get better with drops or ointment or that last more than 10 days. ?? Cool, wet cloths placed on the eyes. ?? Artificial tears used 2-6 times a day. Follow these instructions at home: Medicines ?? Take or apply your antibiotic medicine as told by your doctor. Do not stop taking or applying the antibiotic even if you start to feel better. ?? Take or apply ihvw-uwd-rzicxvq and prescription medicines only as told by your doctor. ?? Do not touch your eyelid with the eye-drop bottle or the ointment tube. Managing discomfort ?? Wipe any fluid from your eye with a warm, wet washcloth or a cotton ball. ?? Place a clean, cool, wet cloth on your eye. Do this for 10-20 minutes, 3-4 times per day. General instructions ?? Do not wear contacts until the infection is gone. Wear glasses until your doctor says it is okayto wear contacts again. ?? Do not wear eye makeup until the infection is gone. Throw away old eye makeup. ?? Change or wash your pillowcase every day. ?? Do not share towels or washcloths. ?? Wash your hands often with soap and water. Use paper towels to dry your hands. ?? Do not touch or rub your eyes. ?? Do not drive or use heavy machinery if your vision is blurred. Contact a doctor if: ?? You have a fever. ?? You do not get better after 10 days. Get help right away if: ?? You have a fever and your symptoms get worse all of a sudden. ?? You have very bad pain when you move your eye. ?? Your face: ? Hurts. ? Is red. ? Is swollen. ?? You have sudden loss of vision. Summary ?? Bacterial conjunctivitis is an infection of your conjunctiva. ?? This infection spreads easily from person to person. ?? Wash your hands often with soap and water. Use paper towels to dry your hands. ?? Take or apply your antibiotic medicine as told by your doctor. ?? Contact a doctor if you have a fever or you do not get better after 10 days. This information is not intended to replace advice given to you by your health care provider. Make sure you discuss any questions you have with your health care provider. Document Revised: 11/08/2019 Document Reviewed: 02/23/2019 [employer] Patient Education ?? 2020 [employer] Care as instructed on AVS If medication was prescribed it was sent to the pharmacy. Take all medication as prescribed. Do not skip a dose and take until completed. Follow up with PCP if the symptoms do not improve Go to the ER if symptoms become severe EGE INSTRUCTOR documented in this encounter Progress Notes * Randall Mendez - 07/25/2021 2:40 PM CST Karly Castellon complains of Possible cellulitis around left eye. Pt states symptoms started yesterday. Pt has some redness, soreness, stinging and itching around eye. Pt states on 07/04/21, she received aZpack for cold symptoms and pt thinks that could related. Pt states she has a little bit of a headache also. Cellulitis This is a new problem. The current episode started yesterday. The problem occurs constantly. The problem has been gradually worsening. Nothing aggravates the symptoms. Treatments tried: advil and mucinex. The treatment provided no relief. Today's ROS EGE INSTRUCTOR * Dena Malloy APRN, DIETITIAN TEACHER - 07/25/2021 2:40 PM CST Images from the original note were not included. HPI: Karly Castellon is a 61 y.o. female in the prompt care today for cellulitis. Symptoms started yesterday Severity of symptoms is constant Associated symptoms include left eye redness, soreness and stinging in eye Patient is currently taking over the counter advil and mucinex for the symptoms. Smoker: No No pertinent Past, family, or social history was noted There is no problem list on file for this patient. ROS: Review of Systems Constitutional: Negative for chills and fever. HENT: Negative for congestion, ear pain, sinus pressure, sinus pain, sore throat and trouble swallowing. Eyes: Positive for pain and itching. Negative for discharge. Lower lid with dark salamatof under it Neurological: Positive for headaches (behind eyes). PE: BP 146/80 (BP Location: Right Arm, BP Position: Sitting, BP Cuff Size: Regular) Pulse 97 Temp 98.2 ??F (36.8 ??C) (Oral) Resp 18 SpO2 96% Physical Exam Vitals and nursing note reviewed. Constitutional: General: She is not in acute distress. Appearance: Normal appearance. She is normal weight. She is not ill-appearing. HENT: Head: Normocephalic and atraumatic. Eyes: Comments: Mild edema with sclera red and inner lower lid redness Cardiovascular: Rate and Rhythm: Normal rate. Pulmonary: Effort: Pulmonary effort is normal. No respiratory distress. Musculoskeletal: Cervical back: Normal range of motion and neck supple. Skin: General: Skin is warm and dry. Neurological: Mental Status: She is alert and oriented to person, place, and time. ASSESSMENT/PLAN: 1. Acute bacterial conjunctivitis of left eye - erythromycin (ROMYCIN) 5 MG/GM Ointment; Apply 1cm ribbon to lower lid of affected eye(s) QID x 7days Dispense: 3.5 g; Refill: 0 AVS from today was printed, discussed with patient/family and given to patient/family Patient Instructions Bacterial Conjunctivitis, Adult Bacterial conjunctivitis is an infection of your conjunctiva. This is the clear membrane that covers the white part of your eye and the inner part of your eyelid. This infection can make your eye: ?? Red or pink. ?? Itchy. This condition spreads easily from person to person (is contagious) and from one eye to the other eye. What are the causes? ?? This condition is caused by germs (bacteria). You may get the infection if you come into close contact with: ? A person who has the infection. ? Items that have germs on them (are contaminated), such as face towels, contact lens solution, or eye makeup. What increases the risk? You are more likely to get this condition if you: ?? Have contact with people who have the infection. ?? Wear contact lenses. ?? Have a sinus infection. ?? Have had a recent eye injury or surgery. ?? Have a weak body defense system (immune system). ?? Have dry eyes. What are the signs or symptoms? ?? Thick, yellowish discharge from the eye. ?? Tearing or watery eyes. ?? Itchy eyes. ?? Burning feeling in your eyes. ?? Eye redness. ?? Swollen eyelids. ?? Blurred vision. How is this treated? ?? Antibiotic eye drops or ointment. ?? Antibiotic medicine taken by mouth. This is used for infections that do not get better with drops or ointment or that last more than 10 days. ?? Cool, wet cloths placed on the eyes. ?? Artificial tears used 2-6 times a day. Follow these instructions at home: Medicines ?? Take or apply your antibiotic medicine as told by your doctor. Do not stop taking or applying the antibiotic even if you start to feel better. ?? Take or apply quyk-blc-kzggyri and prescription medicines only as told by your doctor. ?? Do not touch your eyelid with the eye-drop bottle or the ointment tube. Managing discomfort ?? Wipe any fluid from your eye with a warm, wet washcloth or a cotton ball. ?? Place a clean, cool, wet cloth on your eye. Do this for 10-20 minutes, 3-4 times per day. General instructions ?? Do not wear contacts until the infection is gone. Wear glasses until your doctor says it is okayto wear contacts again. ?? Do not wear eye makeup until the infection is gone. Throw away old eye makeup. ?? Change or wash your pillowcase every day. ?? Do not share towels or washcloths. ?? Wash your hands often with soap and water. Use paper towels to dry your hands. ?? Do not touch or rub your eyes. ?? Do not drive or use heavy machinery if your vision is blurred. Contact a doctor if: ?? You have a fever. ?? You do not get better after 10 days. Get help right away if: ?? You have a fever and your symptoms get worse all of a sudden. ?? You have very bad pain when you move your eye. ?? Your face: ? Hurts. ? Is red. ? Is swollen. ?? You have sudden loss of vision. Summary ?? Bacterial conjunctivitis is an infection of your conjunctiva. ?? This infection spreads easily from person to person. ?? Wash your hands often with soap and water. Use paper towels to dry your hands. ?? Take or apply your antibiotic medicine as told by your doctor. ?? Contact a doctor if you have a fever or you do not get better after 10 days. This information is not intended to replace advice given to you by your health care provider. Make sure you discuss any questions you have with your health care provider. Document Revised: 11/08/2019 Document Reviewed: 02/23/2019 [employer] Patient Education ?? 2020 [employer] Care as instructed on AVS If medication was prescribed it was sent to the pharmacy. Take all medication as prescribed. Do not skip a dose and take until completed. Follow up with PCP if the symptoms do not improve Go to the ER if symptoms become severe Chief complaint and all history documented by ancillary staff were reviewed and verified, with additions or corrections, as appropriate. EGE INSTRUCTOR documented in this encounter Plan of Treatment Not on file documented as of this encounter Visit Diagnoses Diagnosis Acute bacterial conjunctivitis of left eye- Primary documented in this encounter Care Teams Artillery Officer Relationship Specialty Start Date End Date Provider, None [place] PCP - General 07/25/21 documented as of this encounter
--- OUTSIDE RECORDS SUMMARY | 2024-07-19 08:18 | XMS_ITS | Clinical Summary ---
Author Organization [facility] Address [address] [place] [address] Phone Care Team Providers Care Armature And Rotor Winder Name Role Phone Provider, None Primary Care Provider Unavailabl e Allergies Active Allergy Reactions Criticality Noted Date Comments Diphenhydramine Other (see Comments) 07/25/2021 Penicillins Hives 07/25/2021 Medications No known medications Active Problems No known active problems Social History Tobacco Use Types Packs/Day Years Used Date Smoking Tobacco: Never Smokeless Tobacco: Never Alcohol Use Standard Drinks/Week Comments Not Currently 0 (1 standard drink = 0.6 oz pur e alcohol) Sexually Active Control Partners Comments Not Currently Comments No Sex and Gender Information Value Date Recorded Sex Assigned at Not on file Legal Sex Female 2:37 PM PARTY COORDINATOR Gender Identity Not on file Sexual Orientation Not on file Last Filed Vital Signs Vital Sign Reading Time Taken Comments Blood Pressure 140/76 11/14/2021 12:55 PM CDT Pulse 64 11/14/2021 12:55 PM CDT Temperature 36.9 ??C (98.4 ??F) 11/14/2021 12:55 PM C DT Respiratory Rate 14 11/14/2021 12:55 PM CDT Oxygen Saturation 97% 11/14/2021 12:55 PM CDT Inhaled Oxygen Concentration - - Weight - - Height - - Body Mass Index - - Plan of Treatment Health Maintenance Due Date Last Done Comments DEXA Bone Density 1959 Hepatitis C Virus (HCV) Screening 1959 Pap Smear 1980 Cervical Cancer Screening (CCS) 1989 HPV/Cotest 1989 Colonoscopy 2004 Colorectal Cancer Screening 2004 Cologuard 2009 Immunochemical Fecal Occult Blood 2009 Mammogram 2009 Zoster Immunization (1 of 2) 2009 Influenza Immunization (#1) 2024 SARS-COV-2 Immunization (1 - 2023- season) 2024 Pneumococcal Immunization (6 5+ years) (1 of 1 - PCV) 2024 Respiratory Syncytial Virus (RSV) Immunization (Adult) (1 - 1-dose 75+ series) 2034 DTaP/Tdap/Td Immunization Discontinued 03/17/2020 TdaP Immunization Completed 03/17/2020 Hepatitis B Immunization Aged Out No longer eligible based on patient's age to complete this topic Meningococcal Immunization (ACWY) Aged Out No longer eligible based on patient's age to complete this topic Rotavirus Immunization Aged Out No lo nger eligible based on patient's age to complete this topic Care Teams Armature And Rotor Winder Relationship Specialty Start Date End Date Provider, None [place] PCP - General 07/25/21
--- OUTSIDE RECORDS SUMMARY | 2024-07-19 08:18 | XMS_ITS | Encounter Summary ---
Author Organization [facility] Address [address] [place] [address] Phone Care Team Providers Care Speech Professor Name Role Phone Provider, None Primary Care Provider Unavailabl e Reason for Visit * Reason Onset Date Comments Symptom Management 08/01/2021 Encounter Details Date Type Department Care Team (Late st Contact Info) Description 08/01/2021 Telephone [facility] [address] [place] [address] Provider, None [place] Symptom Management Social History Tobacco Use Types Packs/Day Years Used Date Smoking Tobacco: Never Smokeless Tobacco: Never Alcohol Use Standard Drinks/Week Comments Not Currently 0 (1 standard drink = 0.6 oz pur e alcohol) Comments Unknown Sex and Gender Information Value Date Recorded Sex Assigned at Not on file Legal Sex Female 2:37 PM MEDICARE INSURANCE SPECIALIST Gender Identity Not on file Sexual Orientation Not on file COVID-19 Exposure Response Date Recorded In the last month, have you been in contact with someone who was confirmed or suspected to have Coronavirus / COVID-19? No / Unsure 07/25/2021 2:38 PM MEDICARE INSURANCE SPECIALIST documented as of this encounter Miscellaneous Notes * Telephone Encounter - Kassidy Rush - 08/01/2021 3:59 PM CST Patient calling to discuss symptom changes from PC. No PCP. Transferred to RN. CARE INSURANCE SPECIALIST documented in this encounter Plan of Treatment Not on file documented as of this encounter Visit Diagnoses Not on filedocumented in this encounter Care Teams Speech Professor Relationship Specialty Start Date End Date Provider, None [place] PCP - General 07/25/21 documented as of this encounter
--- OUTSIDE RECORDS SUMMARY | 2024-07-19 08:18 | XMS_ITS | Encounter Summary ---
Author Organization [facility] Care Team Providers Care Front Sight Attacher Name Role Phone Provider, None Primary Care Provider Unavailabl e Encounter Details Date Type Department Care Team (Latest Contact Info) Description 11/14/2021 Travel Social History Tobacco Use Types Packs/Day Years Used Date Smoking Tobacco: Never Smokeless Tobacco: Never Alcohol Use Standard Drinks/Week Comments Not Currently 0 (1 standard drink = 0.6 oz pur e alcohol) Sexually Active Control Partners Comments Not Currently Comments No Sex and Gender Information Value Date Recorded Sex Assigned at Not on file Legal Sex Female 2:37 PM STEEL FITTER Gender Identity Not on file Sexual Orientation [...] on filedocumented in this encounter Care Teams Front Sight Attacher Relationship Specialty Start Date End Date Provider, Praveen ANDINO PCP - General 07/25/21 documented as of this encounter
--- OUTSIDE RECORDS SUMMARY | 2024-07-19 08:18 | XMS_ITS | Encounter Summary ---
Author Organization [facility] Address [address] [place] [address] Phone Care Team Providers Care Prekindergarten Teacher Name Role Phone Provider, None Primary Care Provider Unavailabl e Reason for Visit * Reason Comments Cyst Encounter Details Date Type Department Care Team (Latest Contact Info) Description 11/14/2021 12:40 PM CDT [facility] [address] [place] [address] Dena Malloy, APPRENTICE CARPENTER, MANAGER TEST [address] [place] [address] Finger mass, left (Primary Dx) Discharge Disposition: Discharged to home [...] on file Legal Sex Female 2:37 PM THREAD CUTTER TENDER Gender Identity Not on file Sexual Orientation [...] encounter Patient Instructions * Patient Instructions* Dena Malloy APRN, CNP - 11/14/2021 12:40 PM CDT Follow up with hand surgeon Dr. Srivastava Most likely a cyst that needs to be surgically removed Care as instructed on AVS If medication was prescribed it was sent to the pharmacy. Take all medication as prescribed. Do not skip a dose and take until completed. Follow up with PCP if the symptoms do not improve Go to the ER if symptoms become severe documented in this encounter Progress Notes * Luis Enrique Dave RN - 11/14/2021 12:40 PM CDT Karly Castellon complains of Pt states that she has had a spot on her middle finger that is bothering her Cyst This is a new problem. The current episode started more than 1 month ago. The problem occurs constantly. The problem has been unchanged. The symptoms are aggravated by bending. She has tried nothing for the symptoms. The treatment provided no relief. Today's ROS * Dena Malloy APRN, CNP - 11/14/2021 12:40 PM CDT HPI: Karly Castellon is a 61 y.o. female in the prompt care today for left middle finger skin spot. Symptoms started 1 month ago Severity of symptoms is mild and unchanged Associated symptoms include pain with bending Patient is currently taking over the counter nothing for the symptoms. Smoker: No Had a splint in finger about 8 months ago in the same spot as her pain and wound she presents with today. No pertinent Past, family, or social history was noted There is no problem list on file for this patient. ROS: Review of Systems Skin: Positive for wound (left middle finger). PE: BP 140/76 Pulse 64 Temp 98.4 ??F (36.9 ??C) (Temporal) Resp 14 SpO2 97% Physical Exam ASSESSMENT/PLAN: 1. Finger mass, left - XR FINGER(S) MIN 2 VIEWS LT Focal swelling at the palmar aspect of the long finger, just proximal to the distal interphalangeal joint. No radiopaque foreign body and no adjacent osseous destruction. - EXTERNAL HAND SURGERY REFERRAL; Future - referred to Dr. Srivastava AVS from today was printed, discussed with patient/family and given to patient/family Patient Instructions Follow up with hand surgeon Dr. Srivastava Most likely a cyst that needs to be surgically removed Care as instructed on AVS If medication [...] verified, with additions or corrections, as appropriate. documented in this encounter Miscellaneous Notes * Addendum Note - Bernadette Lopez CMA - 11/14/2021 12:40 PM CDTAddended by: BERNADETTE LOPEZ on: 07/22/2023 06:54 AM Modules accepted: Orders AD CUTTER TENDER documented in this encounter Plan of Treatment [...] PM T: ??11/14/2021 2:32 PM Report ID: [id number] Reading Location: ??[id number] Procedure Note Alfred Alicea MD - 11/14/2021 [...] Alfred Alicea M.D. MZ: JEFFRY Report ID: [id number] Reading Location: [id number] IMPRESSION: Focal swelling at the palmar aspect of the long finger, just proximal to the distal interphalangeal joint. No radiopaque foreign body and no adjacent osseous destruction. Dena Malloy APPRENTICE CARPENTER, MANAGER TEST IMG DIAGNOSTIC ORDDano DEMARCO Final Result documented in this encounter Visit Diagnoses Diagnosis Finger mass, left- Primary Localized superficial swelling, mass, or lump documented in this encounter Care Teams Prekindergarten Teacher Relationship Specialty Start Date End Date Provider, None [place] PCP - General 07/25/21 documented as of this encounter
--- OUTSIDE RECORDS SUMMARY | 2024-07-19 08:18 | XMS_ITS | Encounter Summary ---
Author Organization [facility] Care Team Providers Care Welding Machine Operator Electroslag Name Role Phone Provider, None Primary Care Provider Unavailabl e Encounter Details Date Type Department Care Team (Latest Contact Info) Description 07/25/2021 Travel Social History Tobacco Use Types Packs/Day Years Used Date Smoking Tobacco: Never Smokeless Tobacco: Never Alcohol Use Standard Drinks/Week Comments Not Currently 0 (1 standard drink = 0.6 oz pur e alcohol) Comments Unknown Sex and Gender Information Value Date Recorded Sex Assigned at Not on file Legal Sex Female 2:37 PM TEASEL GIG OPERATOR Gender Identity Not on file Sexual Orientation Not on file COVID-19 Exposure Response Date Recorded In the last month, have you been in contact with someone who was confirmed or suspected to have Coronavirus / COVID-19? No / Unsure 07/25/2021 2:38 PM TEASEL GIG OPERATOR documented as of this encounter Plan of Treatment Not on file documented as of this encounter Visit Diagnoses Not on filedocumented in this encounter Care Teams Welding Machine Operator Electroslag Relationship Specialty Start Date End Date Provider, Praveen ANDINO PCP - General 07/25/21 documented as of this encounter
--- OUTSIDE RECORDS SUMMARY | 2024-07-19 13:59 | XMS_ITS | Encounter Summary ---
Author Organization [facility] Address [address] [place] [address] Care Team Providers Care Streetcar Repairer Name Role Phone Unknown, Provider Primary Care Provider Unavaila ble Reason for Visit * Reason Onset Date Comments Patient Requested Call 07/16/2021 Encounter Details Date Type Department Care Team ([facility] st Contact Info) Description 07/16/2021 Telephone [facility] AT [address] [address] Provider, [facility] Patient Requested Call Social History Tobacco Use [...] COVID-19? No / Unsure 07/04/2021 9:34 AM IT SUPPORT ENGINEER documented as of this encounter Miscellaneous Notes * Telephone Encounter - Giselle Sheridan - 07/16/2021 3:11 PM CST Who is calling? Self What is the reason for call? Patient was seen and treated 07/04/21 and was wondering if she could get a refill. Expected Response from the Clinic? Please call her at the above noted phone number. INSTRUMENTATION AND CONTROLS DESIGNER called pt back. Pt stated increased congestion with it also causing pressure in ears. Cloth Washer stated that she should try flonase, drink hot fluids, steam first, then consider additional tx's if that isunsuccessful. Pt. Stated she would try that first. Pt thanked us for the f/u call and voiced no additional questions or concerns. SUPPORT ENGINEER documented in this encounter Plan of Treatment Not on file documented as of this encounter Visit Diagnoses Not on filedocumented in this encounter Care Teams Streetcar Repairer Relationship Specialty Start Date End Date Unknown, Provider PCP - General 03/17/20 documented as of this encounter
--- OUTSIDE RECORDS SUMMARY | 2024-07-19 13:59 | XMS_ITS | Encounter Summary ---
Author Organization [facility] Address [address] [facility] [place] [address] Care Team Providers Care Oil Refinery Process Technician Name Role Phone Unknown, Provider Primary Care Provider Unavaila ble Reason for Visit * Reason Onset Date Comments Follow-up 07/06/2021 Encounter Details Date Type Department Care Team (Late st Contact Info) Description 07/06/[address] [facility] [employer] [facility] AT [address] [address] Alexey Barker APRN-CNP [address] [place] [phone] Follow-up Social History Tobacco Use Types [...] COVID-19? No / Unsure 07/04/2021 9:34 AM MUD ANALYSIS WELL LOGGING CAPTAIN documented as of this encounter Miscellaneous Notes * Telephone Encounter - Alexey Barker APRN-CNP - 07/06/2021 10:13 AM MUD ANALYSIS WELL LOGGING CAPTAIN STERILE PROCESS TECH called for f/u. STERILE PROCESS TECH spoke to pt who stated she was feeling better, voiced no further questions orconcerns and thanked us for the f/u call. ANALYSIS WELL LOGGING CAPTAIN documented in this encounter Plan of Treatment Not on file documented as of this encounter Visit Diagnoses Not on filedocumented in this encounter Care Teams Oil Refinery Process Technician Relationship Specialty Start Date End Date Unknown, Provider PCP - General 03/17/20 documented as of this encounter
--- OUTSIDE RECORDS SUMMARY | 2024-07-19 13:59 | XMS_ITS | Encounter Summary ---
Author Organization [facility] Address [address] [place] [address] Care Team Providers Care Serology Teacher Name Role Phone Unknown, Provider Primary Care [...] COVID-19? No / Unsure 07/04/2021 9:34 AM REPAIR MILLER documented as of this encounter Plan of Treatment Not on file documented as of this encounter Visit Diagnoses Not on filedocumented in this encounter Care Teams Serology Teacher Relationship Specialty Start Date End Date Unknown, Provider PCP - General 03/17/20 documented as of this encounter
--- OUTSIDE RECORDS SUMMARY | 2024-07-19 13:59 | XMS_ITS | Referral Summary ---
Author Organization [facility] [employer] [facility] Address [address] [place] [address] Care Team Providers Care Database Marketing Specialist Name Role Phone Unknown, Provider Primary Care Provider Unavaila ble Source Comments [facility] [employer],non-owned Affiliates and Associated Physician Practices is amultiple site organization consisting of ambulatory clinics and hospital sitesin [place], [place], [place] and [place]. This disclosure is being madepursuant to the Care Everywhere program and may not contain all information available regarding this patient. Last updated 18.[facility] [facility] Allergies Active Allergy Reactions Criticality Noted Date [...] Comments Blood Pressure 112/80 07/04/2021 9:49 AM CASH POSTER Pulse 86 07/04/2021 9:49 AM CASH POSTER Temperature 36.7 ??C (98 ??F) 07/04/2021 9:49 AM CASH POSTER Respiratory Rate 18 07/04/2021 9:49 AM CASH POSTER Oxygen Saturation 97% 07/04/2021 9:49 AM CASH POSTER Inhaled Oxygen Concentration - - Weight 72.6 kg (160 lb) 07/04/2021 9:49 AM CASH POSTER Height 149.9 cm (4' 11 ) 07/04/2021 9:49 AM CASH POSTER Body Mass Index 32.32 07/04/2021 9:49 AM CASH POSTER Plan of Treatment Not on file Care Teams Database Marketing Specialist Relationship Specialty Start Date End Date Unknown, Provider PCP - General 03/17/20
--- OUTSIDE RECORDS SUMMARY | 2024-07-19 13:59 | XMS_ITS | Encounter Summary ---
Author Organization [facility] Address [address] [place] [address]. [place] [address] [place] [address] Care Team Providers Care Net Repairer Name Role Phone Chante Simon MD Primary Care Provider + Reason for Referral * Imaging (Emergency) - Closed Specialty Diagnoses / Procedures Referred By Yris t Referred To Contact RADIOLOGY Diagnoses Acute diverticulitis Procedures CT ABD+PEL WWO CON Chante Simon MD [address] [place] [address] Phone: tel: fax: Referral ID Status Reason Start Date Expiration Date Visits Re quested Visits Authorized [id number] Closed 07/18/2024 07/19/2025 1 1 MATIC BEAM WARPER TENDER Reason for Visit * Reason Comments ER F/U Here for ER f/u. She has an appt with loading supervisor today also. AH ER didn't know what was wrong. She went to ER on Thursday. Palpitations. Also having gas and stool is soft and loose. Colon is rumbling. Encounter Details Date Type Department Care Team (Late st Contact Info) Description 07/18/2024 9:50 AM AUTOMATIC BEAM WARPER TENDER Office Visit [facility] Family Medicine - [place] [address] [place] [address] Chante Simon MD [address] [place] [address] ER F/U (Here for ER f/u. She has an appt with loading supervisor today also. AH ER didn't know what [...] Comments Blood Pressure 144/90 07/18/2024 9:50 AM AUTOMATIC BEAM WARPER TENDER Pulse 74 07/18/2024 9:42 AM AUTOMATIC BEAM WARPER TENDER Temperature 36.7 ??C (98 ??F) 07/18/2024 9:42 AM AUTOMATIC BEAM WARPER TENDER Respiratory Rate - - Oxygen Saturation 97% 07/18/2024 9:42 AM AUTOMATIC BEAM WARPER TENDER Inhaled Oxygen Concentration - - Weight 75.4 kg (166 lb 3.2 oz) 07/18/2024 9:42 A M AUTOMATIC BEAM WARPER TENDER Height 149.9 cm (4' 11 ) 07/18/2024 9:42 AM AUTOMATIC BEAM WARPER TENDER Body Mass Index 33.57 07/18/2024 9:42 AM AUTOMATIC BEAM WARPER TENDER documented in this encounter Patient Instructions * Attachments The following attachments cannot be sent through Care Everywhere. * Diverticulitis (Macanese) documented in this encounter Progress Notes * [...] cramping. It wasn't improving.Went to the ED- [facility]. They did blood work which she provides [...] the day of the encounter. This includes [id number] and osi-npos-uz-face time I provided on the day of the encounter & excludes time spent performing separately reportable services. Lab: None Specified No follow-ups on file. CHANTE SIMON MD Family Practice MATIC BEAM WARPER TENDER documented in this encounter Plan of Treatment Upcoming Encounters Date Type Department Care Team (Late st Contact Info) Description 07/26/2024 7:40 AM AUTOMATIC BEAM WARPER TENDER Laboratory Only [facility] Family Medicine - [place] [address] [place] [address] Chante Simon MD [address] [place] [address] 09/05/2024 10:15 AM AUTOMATIC BEAM WARPER TENDER Office Visit [facility] [address] [place] [address] Wilfrido Hobbs MD [facility], [address] [place] [address] Scheduled Orders Name Type Priority Associated Diagnoses Orde r Schedule CT ABD+PEL WWO CON CT STAT Acute diverticulitis Expected: 07/18/2024, Expires: 07/18/2025 documented as of this encounter Visit Diagnoses Diagnosis Acute diverticulitis- Primary documented in this encounter Care Teams Net Repairer Relationship Specialty Start Date End Date Chante Simon MD [address] [place] [address] PCP - General FAMILY PRACTICE 07/07/24 documented as of this encounter
--- OUTSIDE RECORDS SUMMARY | 2024-07-19 13:59 | XMS_ITS | Encounter Summary ---
Author Organization [facility] Address [address] [facility] [place] [address] Care Team Providers Care Director Of Web Marketing Name Role Phone Unknown, Provider Primary Care [...] COVID-19? No / Unsure 07/03/2021 1:30 PM SECONDS GRADER documented as of this encounter Plan of Treatment Not on file documented as of this encounter Visit Diagnoses Not on filedocumented in this encounter Care Teams Director Of Web Marketing Relationship Specialty Start Date End Date Unknown, Provider PCP - General 03/17/20 documented as of this encounter
--- OUTSIDE RECORDS SUMMARY | 2024-07-19 13:59 | XMS_ITS | Encounter Summary ---
Author Organization [facility] Address [address] [place] [address]. [place] [address] [place] [address] Care Team Providers Care Mold Shop Supervisor Name Role Phone None, Provider Primary [...] st Contact Info) Description 07/26/2024 7:40 AM SHEET HEATER HELPER Laboratory Only [facility] Family Medicine - [place] [address] [place] [address] Chante Hamilton MD [address] [place] [id number] 09/05/2024 10:15 AM SHEET HEATER HELPER Office Visit [facility] [address] [place], [place] [phone] Wilfrido Hobbs MD [facility], [address] [place] [address] documented as of this encounter Visit Diagnoses Not on filedocumented in this encounter Care Teams Mold Shop Supervisor Relationship Specialty Start Date End Date None, Provider, PCP - General 04/01/22 07/06/24 documented as of this encounter
--- OUTSIDE RECORDS SUMMARY | 2024-07-19 13:59 | XMS_ITS | Encounter Summary ---
Author Organization [facility] Address [address] [facility] [place] [address] Care Team Providers Care Apparel Sales Associate Name Role Phone Unknown, Provider Primary Care Provider Unavaila ble Reason for Visit * Reason Comments Imm Inj Encounter Details Date Type Department Care Team (Late st Contact Info) Description 03/17/2020 2:00 PM CDT Office Visit [facility] [place] [address] [place] [address] Provider, [facility] [place] Encounter [...] patient. Patient tolerated well. Giselle Feliz APRN, SUPERVISOR EXTRUDING DEPARTMENT-C documented in this encounter Plan of Treatment Not on file documented as of this encounter Visit Diagnoses Diagnosis Encounter for vaccination- Primary documented in this encounter Care Teams Apparel Sales Associate Relationship Specialty Start Date End Date Unknown, Provider PCP - General 03/17/20 documented as of this encounter
--- OUTSIDE RECORDS SUMMARY | 2024-07-19 13:59 | XMS_ITS | Encounter Summary ---
Author Organization [facility] Address [address] [place] [address] Care Team Providers Care Senior Business Manager Name Role Phone Unknown, Provider Primary Care Provider Unavaila ble Reason for Visit * Reason Comments Sinusitis 2 weeks Cough Congestion Encounter Details Date Type Department Care Team (Late st Contact Info) Description 07/04/2021 9:40 AM EXHAUST AND MUFFLER REPAIRER Office Visit [facility] AT [address] [address] Provider, [facility] Acute frontal sinusitis, recurrence not [...] COVID-19? No / Unsure 07/04/2021 9:34 AM EXHAUST AND MUFFLER REPAIRER documented as of this encounter Last Filed Vital Signs Vital Sign Reading Time Taken Comments Blood Pressure 112/80 07/04/2021 9:49 AM EXHAUST AND MUFFLER REPAIRER Pulse 86 07/04/2021 9:49 AM EXHAUST AND MUFFLER REPAIRER Temperature 36.7 ??C (98 ??F) 07/04/2021 9:49 AM EXHAUST AND MUFFLER REPAIRER Respiratory Rate 18 07/04/2021 9:49 AM EXHAUST AND MUFFLER REPAIRER Oxygen Saturation 97% 07/04/2021 9:49 AM EXHAUST AND MUFFLER REPAIRER Inhaled Oxygen Concentration - - Weight 72.6 kg (160 lb) 07/04/2021 9:49 AM EXHAUST AND MUFFLER REPAIRER Height 149.9 cm (4' 11 ) 07/04/2021 9:49 AM EXHAUST AND MUFFLER REPAIRER Body Mass Index 32.32 07/04/2021 9:49 AM EXHAUST AND MUFFLER REPAIRER documented in this encounter Patient Instructions * Patient Instructions* Karly Siegel, JINRIKSHA DRIVER-DESKTOP SPECIALIST - 07/04/2021 10:26 AM EXHAUST AND MUFFLER REPAIRER Images from the original note were not included. Patient Education Sinusitis IT ADMIN: Sinusitis is inflammation or infection of your [...] ask them during your visits. ?? Copyright [employer] 2020 Information is for End User's use only and may not be sold, redistributed or otherwise used for commercial purposes. All illustrations and images included in CareNotes?? are the copyrighted property of [employer] [facility]. or [employer] The above information is an surgery aid only. It is not intended as medical advice for individual conditions or treatments. Talk to your doctor, nurse or pharmacist before following any medical regimen to see if it is safe and effective for you. UST AND MUFFLER REPAIRER documented in this encounter Progress Notes * Karly Siegel APRN-CNP - 07/04/2021 10:03 AM CST [facility] Karly Castellon is a 61 year old [...] exam, documenting, counseling/educating, reviewing plan of care UST AND MUFFLER REPAIRER documented in this encounter Plan of Treatment Not on file documented as of this encounter Visit Diagnoses Diagnosis Acute frontal sinusitis, recurrence not specified- Primary documented in this encounter Care Teams Senior Business Manager Relationship Specialty Start Date End Date Unknown, Provider PCP - General 03/17/20 documented as of this encounter
--- OUTSIDE RECORDS SUMMARY | 2024-07-19 13:59 | XMS_ITS | Encounter Summary ---
Author Organization [facility] Address [address] [place] [address]. [place] [address] [place] [address] Care Team Providers Care Airport Engineer Name Role Phone None, Provider Primary Care Provider Unavaila ble Reason for Visit * Reason Comments Chest Pain 6MO Shortness Of Breath Encounter Details Date Type Department Care Team (Late st Contact Info) Description 07/20/2023 1:00 PM INSURANCE PROCESSOR Office Visit [facility] [address] [place] [address] Wilfrido Hobbs MD [facility], [address] [place], [place] [id number] Chest Pain (6MO); Shortness Of Breath Social [...] Comments Blood Pressure 134/72 07/20/2023 12:42 PM INSURANCE PROCESSOR Pulse 73 07/20/2023 12:42 PM INSURANCE PROCESSOR Temperature - - Respiratory Rate - - Oxygen Saturation 99% 07/20/2023 12:42 PM INSURANCE PROCESSOR Inhaled Oxygen Concentration - - Weight 75 kg (165 lb 6.4 oz) 07/20/2023 12:42 PM INSURANCE PROCESSOR Height 149.9 cm (4' 11 ) 07/20/2023 12:42 PM INSURANCE PROCESSOR Body Mass Index 33.41 07/20/2023 12:42 PM INSURANCE PROCESSOR documented in this encounter Progress Notes * [...] Continue lifestyle modification. Her daughter is a rail gang supervisor helping her with ideas for weight loss. [...] ref. provider found PCP: Anne Morton MD RANCE PROCESSOR documented in this encounter Plan of Treatment Upcoming Encounters Date Type Department Care Team (Late st Contact Info) Description 07/26/2024 7:40 AM INSURANCE PROCESSOR Laboratory Only [facility] Family Medicine - [place] [address] [place] [address] Chante Hamilton MD [address] [place] [address] 09/05/2024 10:15 AM INSURANCE PROCESSOR Office Visit [facility] [address] [place] [address] Wilfrido Hobbs MD [facility] [address] [place] [address] documented as of this encounter Visit Diagnoses Diagnosis BERMEO (dyspnea on exertion)- Primary Other dyspnea and respiratory abnormality Chest discomfort Other chest pain Mitral valve prolapse Mitral valve disorders Obesity, Class I, BMI 30-34.9 Obesity, unspecified documented in this encounter Care Teams Airport Engineer Relationship Specialty Start Date End Date None, ProviderMD PCP - General 04/01/22 07/06/24 documented as of this encounter
--- OUTSIDE RECORDS SUMMARY | 2024-07-19 13:59 | XMS_ITS | Encounter Summary ---
Author Organization [facility] Address [address] [place] [address]. [place] [address] [place] [address] Care Team Providers Care Wet Pan Mixer Name Role Phone Chante Hamilton MD Primary [...] st Contact Info) Description 07/26/2024 7:40 AM PLASTICS ENGINEERING TEACHER Laboratory Only [facility] Family Medicine - [place] [address] [place], [place] [address] Chante Hamilton MD [address] [place] [address] 09/05/2024 10:15 AM PLASTICS ENGINEERING TEACHER Office Visit [facility] [address] [place] [address] Wilfrido Hobbs MD [facility], [address] [place] [address] documented as of this encounter Visit Diagnoses Not on filedocumented in this encounter Care Teams Wet Pan Mixer Relationship Specialty Start Date End Date Chante Hamilton MD [address] [place] [address] PCP - General FAMILY PRACTICE 07/07/24 documented as of this encounter
--- OUTSIDE RECORDS SUMMARY | 2024-07-19 13:59 | XMS_ITS | Encounter Summary ---
Author Organization [facility] Address [address] [place] [address] Care Team Providers Care Air Pollution Compliance Inspector Name Role Phone Unavailable Primary Care Provider [...]
--- OUTSIDE RECORDS SUMMARY | 2024-07-19 13:59 | XMS_ITS | Clinical Summary ---
Author Organization [facility] Address [address] [facility] [place] [address] Care Team Providers Care Car Packer Name Role Phone Unknown, Provider Primary Care Provider Unavaila ble Source Comments [facility] [employer],non-owned Affiliates and Associated Physician Practices is amultiple site organization consisting of ambulatory clinics and hospital sitesin [place], [place], [place] and [place]. This disclosure is being madepursuant to the Care Everywhere program and may not contain all information available regarding this patient. Last updated 18.[facility] Allergies Active Allergy Reactions Criticality Noted Date [...] Comments Blood Pressure 112/80 07/04/2021 9:49 AM CALL CENTER RECEPTIONIST Pulse 86 07/04/2021 9:49 AM CALL CENTER RECEPTIONIST Temperature 36.7 ??C (98 ??F) 07/04/2021 9:49 AM CALL CENTER RECEPTIONIST Respiratory Rate 18 07/04/2021 9:49 AM CALL CENTER RECEPTIONIST Oxygen Saturation 97% 07/04/2021 9:49 AM CALL CENTER RECEPTIONIST Inhaled Oxygen Concentration - - Weight 72.6 kg (160 lb) 07/04/2021 9:49 AM CALL CENTER RECEPTIONIST Height 149.9 cm (4' 11 ) 07/04/2021 9:49 AM CALL CENTER RECEPTIONIST Body Mass Index 32.32 07/04/2021 9:49 AM CALL CENTER RECEPTIONIST Plan of Treatment Health Maintenance Due Date [...] age to complete this topic Care Teams Car Packer Relationship Specialty Start Date End Date Unknown, Provider PCP - General 03/17/20
--- OUTSIDE RECORDS SUMMARY | 2024-07-19 13:59 | XMS_ITS | Encounter Summary ---
Author Organization [facility] Address [address] [place] [address]. [place] [address] [place] [address] Care Team Providers Care Administrative Resources Associate Name Role Phone Chante Hamilton MD Primary Care Provider + Reason for Visit * Reason Onset Date Comments Medication 07/18/2024 Encounter Details Date Type Department Care Team (Late st Contact Info) Description 07/18/2024 Telephone [facility] Family Medicine - [place] [address] [address] Chante Hamilton MD [address] [facility] [address] [place] [address] Medication Social History Tobacco Use Types [...] CST Spoke with Portia. Pharmacy is aware E MOUNTER * Chante Hamilton MD - 07/18/2024 11:29 AM CST Please notify. For diverticulitis so it should be three times daily. Thanks. E MOUNTER * Kerrie Serrato - 07/18/2024 10:53 AM CST Portia with [facility] called in to verify augmentin instructions. She is wanting to know if it should be 2 times a day instead of 3. Her callback # is [phone]. E MOUNTER documented in this encounter Plan of Treatment Upcoming Encounters Date Type Department Care Team (Late st Contact Info) Description 07/26/2024 7:40 AM STOVE MOUNTER Laboratory Only [facility] Family Medicine - [place] [address] [place], [place] [address] Chante Hamilton MD [address] [place], [place] [address] 09/05/2024 10:15 AM STOVE MOUNTER Office Visit [facility] [address] [place] [address] Wilfrido Hobbs MD [facility], [address] [place] [address] documented as of this encounter Visit Diagnoses Not on filedocumented in this encounter Care Teams Administrative Resources Associate Relationship Specialty Start Date End Date Chante Hamilton MD [address] [place], [place] [address] PCP - General FAMILY PRACTICE 07/07/24 documented as of this encounter
--- OUTSIDE RECORDS SUMMARY | 2024-07-19 13:59 | XMS_ITS | Patient Health Summary ---
Author Organization [facility] Address [address] [facility] [place] [address] Care Team Providers Care Accounts Executive Name Role Phone Unknown, Provider Primary Care Provider Unavaila ble Note from [facility][note 3],non-owned Affiliates and Associated Physician Practices is amultiple site organization consisting of ambulatory clinics and hospital sitesin [place], [place], [place] and [place]. This disclosure is being madepursuant to the Care Everywhere program and may not contain all information available regarding this patient. Last updated 18.[facility] [employer] Allergies * Diphenhydramine(Palpitations) * Penicillins(Urticaria) -Medium Criticality [...] Comments Blood Pressure 112/80 07/04/2021 9:49 AM SUPERVISOR PASTE MIXING Pulse 86 07/04/2021 9:49 AM SUPERVISOR PASTE MIXING Temperature 36.7 ??C (98 ??F) 07/04/2021 9:49 AM SUPERVISOR PASTE MIXING Respiratory Rate 18 07/04/2021 9:49 AM SUPERVISOR PASTE MIXING Oxygen Saturation 97% 07/04/2021 9:49 AM SUPERVISOR PASTE MIXING Inhaled Oxygen Concentration - - Weight 72.6 kg (160 lb) 07/04/2021 9:49 AM SUPERVISOR PASTE MIXING Height 149.9 cm (4' 11 ) 07/04/2021 9:49 AM SUPERVISOR PASTE MIXING Body Mass Index 32.32 07/04/2021 9:49 AM SUPERVISOR PASTE MIXING Care Teams Accounts Executive Relationship Specialty Start Date End Date Unknown, Provider PCP - General 03/17/20
--- OUTSIDE RECORDS SUMMARY | 2024-07-19 13:59 | XMS_ITS | Encounter Summary ---
Author Organization [facility] Address [address] [place] [address]. [place] [address] [place] [address] Care Team Providers Care Manager Hair Name Role Phone Chante Hamilton MD Primary [...] st Contact Info) Description 07/26/2024 7:40 AM CLOTH PIECER Laboratory Only [facility] Family Medicine - [place] [address] [place], [place] [address] Chante Hamilton MD [address] [place] [address] 09/05/2024 10:15 AM CLOTH PIECER Office Visit [facility] [address] [place] [address] Wilfrido Hobsb MD Three [facility], [address] [place] [address] documented as of this encounter Visit Diagnoses Not on filedocumented in this encounter Care Teams Manager Hair Relationship Specialty Start Date End Date Chante Hamilton MD [address] [place] [address] PCP - General FAMILY PRACTICE 07/07/24 documented as of this encounter
--- OUTSIDE RECORDS SUMMARY | 2024-07-19 13:59 | XMS_ITS | Encounter Summary ---
Author Organization [facility] Address [address] [place] [address]. [place], [place] [address] [place] [address] Care Team Providers Care Hadoop Consultant Name Role Phone Chante Simon MD Primary Care Provider + Reason for Referral * Imaging (Routine) - New Request Specialty Diagnoses / Procedures Referred By Contac t Referred To Contact RADIOLOGY Diagnoses Post-menopausal Estrogen deficiency Procedures BONE DENSITY/DEXA Chante Simon MD [address] [place] [address] Phone: tel: fax: Referral ID Status Reason Start Date Expiration Date V isits Requested Visits Authorized [id number] New Request 07/07/2024 07/07/2025 1 1 E ADVISOR * Imaging (Routine) - New Request Specialty Diagnoses / Procedures Referred By Contac t Referred To Contact RADIOLOGY Diagnoses Pulmonary nodules Procedures CT CHEST WO CON Chante Simon MD [address] [place] [address] Phone: tel: fax: Referral ID Status Reason Start Date Expiration Date V isits Requested Visits Authorized [id number] New Request 07/07/2024 07/08/2025 1 1 E ADVISOR * Imaging (Routine) - New Request Specialty Diagnoses / Procedures Referred By Contnicolás t Referred To Contact RADIOLOGY Diagnoses Encounter for mammogram to establish baseline mammogram Procedures MG SCREENING W JANES BARB DIGI Chante Simon MD [address] [place] [address] Phone: tel: fax: Referral ID Status Reason Start Date Expiration Date V isits Requested Visits Authorized [id number] New Request 07/07/2024 09/06/2025 1 1 E ADVISOR * Consultation (Routine) - New Request Specialty Diagnoses / Procedures Referred By Yris tsai Referred To Contact GENERAL SURGERY / SURGERY Diagnoses Colon cancer screening Chante Simon MD [address] [facility] [address] [place] [address] Phone: tel: fax: [facility] Medical [facility] General Surgery [address], [address] [place] [phone] Phone: tel: fax: Referral ID Status Reason Start Date Expiration Date V isits Requested Visits Authorized [id number] New Request 07/07/2024 08/07/2025 1 1 E ADVISOR Reason for Visit * Reason Comments New Patient Here to get establis hed. Encounter Details Date Type Department Care Team (Late st Contact Info) Description 07/07/2024 9:30 AM STYLE ADVISOR Office Visit [facility] Medical Group Family Medicine - [place] [address] [place] [phone] Chante Simon MD [address] [place] [phone] New Patient (Here to get established.) [...] Comments Blood Pressure 129/78 07/07/2024 9:13 AM STYLE ADVISOR Pulse 92 07/07/2024 9:13 AM STYLE ADVISOR Temperature 36.9 ??C (98.5 ??F) 07/07/2024 9:13 AM CS T Respiratory Rate - - Oxygen Saturation 99% 07/07/2024 9:13 AM STYLE ADVISOR Inhaled Oxygen Concentration - - Weight 75.8 kg (167 lb 3.2 oz) 07/07/2024 9:13 A M STYLE ADVISOR Height 149.9 cm (4' 11 ) 07/07/2024 9:13 AM STYLE ADVISOR Body Mass Index 33.77 07/07/2024 9:13 AM STYLE ADVISOR documented in this encounter Patient Instructions * Patient Instructions* Chante Simon MD - 07/07/2024 9:30 AM STYLE ADVISOR Images from the original note were not [...] Wheat bran Dried beans and nuts like: Martin seeds Almonds Black beans Chickpeas What problems [...] or approved for treating a specific patient. [employer] and its affiliates disclaim any warranty or liability relating to this information or the use thereof. The use of this information is governed by the Terms of Use, available at https://www.Ticketmaster.com/en/know/ujympuwr-kyapogamslovb-umcis Copyright Copyright ?? 2022 [employer] and its affiliates and/or licensors. All rights reserved. E ADVISOR documented in this encounter Progress Notes * Chante Simon MD - 07/07/2024 10:10 AM CSTAssociated Problem(s): Pulmonary nodules Ordered repeat CT of the chest without contrast to evaluate pulmonary nodules. E ADVISOR * Chante Simon MD - 07/07/2024 9:30 [...] screenings - Breast cancer screening ordered at [facility] - Immunizations: Tdap 2020, Prevnar 20 encouarged, [...] the day of the encounter. This includes jmtc-si-kabc and nty-gwez-wx-face time I provided on the day of the encounter & excludes time spent performing separately reportable services. Lab: None Specified Return in about 1 year (around 07/07/2025) for chronic disease, [facility] [place] same day. CHANTE SIMON MD Family Practice E ADVISOR documented in this encounter Plan of Treatment Upcoming Encounters Date Type Department Care Team (Late st Contact Info) Description 07/26/2024 7:40 AM STYLE ADVISOR Laboratory Only [facility] Medical [facility] Family Medicine - [place] [address] [place] [address] Chante Simon MD [address] [place] [address] 09/05/2024 10:15 AM STYLE ADVISOR Office Visit [facility] [address] [place], [place] [phone] Wilfrido Hobbs MD Three [facility], [address] [place] [address] Scheduled Orders Name Type Priority Associated Diagnoses [...] failure documented in this encounter Care Teams Hadoop Consultant Relationship Specialty Start Date End Date Chante Simon MD [address] [address] PCP - General FAMILY PRACTICE 07/07/24 documented as of this encounter
--- OUTSIDE RECORDS SUMMARY | 2024-07-19 13:59 | XMS_ITS | Encounter Summary ---
Author Organization [facility] Address [address] [facility] [place] [address] Care Team Providers Care Technical Support Representative Name Role Phone Unknown, Provider Primary Care [...] on filedocumented in this encounter Care Teams Technical Support Representative Relationship Specialty Start Date End Date Unknown, Provider PCP - General 03/17/20 documented as of this encounter
--- OUTSIDE RECORDS SUMMARY | 2024-07-19 13:59 | XMS_ITS | Encounter Summary ---
Author Organization [facility] Address [address] [place] [address]. [place] [address] [place] [address] Care Team Providers Care Sr Technical Sales Consultant Name Role Phone Chante Simon MD Primary Care Provider + Reason for Visit * Reason Comments Mitral Valve Disorders 1yr Encounter Details Date Type Department Care Team (Late st Contact Info) Description 07/18/2024 12:30 PM FILM VAULT SUPERVISOR Office [facility] [address] [place] [address] Wilfrido Hobbs MD [facility], [address] [place], [place] [phone] Mitral Valve Disorders (1yr) Social History Tobacco [...] Comments Blood Pressure 132/80 07/18/2024 12:23 PM FILM VAULT SUPERVISOR Pulse 80 07/18/2024 12:23 PM FILM VAULT SUPERVISOR Temperature - - Respiratory Rate - - Oxygen Saturation 96% 07/18/2024 12: 23 PM FILM VAULT SUPERVISOR Inhaled Oxygen Concentration - - Weight 75.2 kg (165 lb 12.8 oz) 024 12:23 PM FILM VAULT SUPERVISOR Height 149.9 cm (4' 11 ) 07/18/2024 12: 23 PM FILM VAULT SUPERVISOR Body Mass Index 33.49 07/18/2024 12:23 PM FILM VAULT SUPERVISOR documented in this encounter Progress Notes * [...] she had sustained palpitations, was seen at [facility]. She has been dealing with IBS, not [...] Continue lifestyle modification. Her daughter is a formula room worker helping her with ideas for weight loss. [...] ref. provider found PCP: CHANTE SIMON MD VAULT SUPERVISOR documented in this encounter Plan of Treatment Upcoming Encounters Date Type Department Care Team (Late st Contact Info) Description 07/26/2024 7:40 AM FILM VAULT SUPERVISOR Laboratory Only [facility] [address] [address] Chante Simon MD [address] [place] [address] 09/05/2024 10:15 AM FILM VAULT SUPERVISOR Office Visit [facility] [address] [place] [address] Wilfrido Hobbs MD [facility], [address] [place] [address] documented as of this encounter Visit Diagnoses Diagnosis Chest discomfort- Primary Other chest pain Mild mitral valve prolapse Mitral valve disorders Obesity, Class I, BMI 30-34.9 Obesity, unspecified BERMEO (dyspnea on exertion) Other dyspnea and respiratory abnormality Family history of early CAD Family history of ischemic heart disease Palpitations documented in this encounter Care Teams Sr Technical Sales Consultant Relationship Specialty Start Date End Date Chante Simon MD [address] [facility] [address] [place] [address] PCP - General FAMILY PRACTICE 07/07/24 documented as of this encounter
--- OUTSIDE RECORDS SUMMARY | 2024-07-19 13:59 | XMS_ITS | Clinical Summary ---
Author Organization [facility] Address [address] [place] [address]. [place] [address] [place] [address] Care Team Providers Care Chucker Name Role Phone Chante Hamilton MD Primary [...] months. Assessment & Plan (07/07/2024 10:10 AM SURGEON'S ASSISTANT): Ordered repeat CT of the chest without contrast to evaluate pulmonary nodules. Mitral valve disorder 04/04/2022 Overview (07/07/2024): She does follow with cardiology, Dr. Faby Mckeon. Sees him annually. Encounters Date Type Department Care Team Description 07/19/2024 12:34 PM SURGEON'S ASSISTANT Hospital Encounter [employer] [facility] [place] [address] Chante Hamilton MD Arrived 07/19/2024 Travel 07/19/2024 Telephone [facility] [address] [place] [address] [address] [place] [address] Chante Hamilton MD Update 07/18/2024 12:30 PM SURGEON'S ASSISTANT Office Visit [facility] [address] [place] [address] Wilfrido Hobbs MD Mitral Valve Disorders (1yr) 07/18/2024 9:50 AM SURGEON'S ASSISTANT Office Visit [facility] [address] [place] [address] [address] [place], [place] [phone] Chante Hamilton MD ER F/U (Here for ER f/u. She has an appt with executive sales assistant today also. AH ER didn't know what was wrong. She went to ER on Thursday. Palpitations. Also having gas and stool is soft and loose. Colon is rumbling. ) 07/18/2024 Orders Only [facility], [address] [place] [address] Wilfrido Hobbs MD 07/18/2024 Telephone [facility] [address] [facility] [address] [place] [address] Chante Hamilton MD Medication 07/18/2024 Travel 07/15/2024 Scan [facility] Scanned, [facility] Lab (SCAN) 07/07/2024 9:30 AM SURGEON'S ASSISTANT [facility] - [place] [address] [facility] [address] [place] [address] Chante Hamilton MD New Patient (Here to [...] Comments Blood Pressure 132/80 07/18/2024 12:23 PM SURGEON'S ASSISTANT Pulse 80 07/18/2024 12:23 PM SURGEON'S ASSISTANT Temperature 36.7 ??C (98 ??F) 07/18/2024 9:42 AM SURGEON'S ASSISTANT Respiratory Rate 20 05/13/2023 1:45 PM CDT Oxygen Saturation 96% 07/18/2024 12: 23 PM SURGEON'S ASSISTANT Inhaled Oxygen Concentration - - Weight 75.2 kg (165 lb 12.8 oz) 024 12:23 PM SURGEON'S ASSISTANT Height 149.9 cm (4' 11 ) 07/18/2024 12: 23 PM SURGEON'S ASSISTANT Body Mass Index 33.49 07/18/2024 12:23 PM SURGEON'S ASSISTANT Plan of Treatment Upcoming Encounters Date Type Department Care Team (Late st Contact Info) Description 07/26/2024 7:40 AM SURGEON'S ASSISTANT Laboratory Only [facility] Family Medicine - [place] [address] [place] [address] Chante Hamilton MD [address] [place], [place] [address] 09/05/2024 10:15 AM SURGEON'S ASSISTANT Office Visit [facility] [address] [place] [address] Wilfrido Hobbs MD [facility], [address] [place] [address] Health Maintenance Due Date Last Done Comments [...] 60-74 years 1-dose series) 2019 COVID-19 Vaccine ( - 2023-2 5 season) 2024 Dexa Scan (General) 2024 [...] * OUTSIDE PT/INR (SCAN ORDER) (07/15/2024) 07/15/2024 [facility] Scanned SCANNING Final Resu lt * OUTSIDE LAB (SCAN ORDER) (07/15/2024) Only the most recent of2 resultswithin the time period is included. 07/15/2024 [facility] Scanned SCANNING Final Resu lt from Last 3 Months Insurance MEDICARE Care Teams Chucker Relationship Specialty Start Date End Date Chante Hamilton MD [address] [place] [phone] PCP - General FAMILY PRACTICE 07/07/24
--- OUTSIDE RECORDS SUMMARY | 2024-07-19 14:00 | XMS_ITS | Encounter Summary ---
Author Organization [facility] Address [address] [place] [address]. [place] [address] [place] [address] Care Team Providers Care Batch Analyst Name Role Phone None, Provider Primary Care Provider Noea ble Encounter Details Date Type Department Care Team (Late Contact Info) Description 01/13/2023 Orders Only [address] [phone] William Melgoza MD,PHD Social History Tobacco Use [...] Department Care Team (Late Contact Info) Description 07/26/2024 7:40 AM INDUSTRIAL SOCIOLOGIST Laboratory Only [facility] Family Medicine - [place] [address] [place] [address] Chante Hamilton MD [address] [place] [address] 09/05/2024 10:15 AM INDUSTRIAL SOCIOLOGIST Office Visit [facility] [address] [place] [address] Wilfrido Hobbs MD Three [facility] [address] [place], [place] [address] documented as of this encounter Results * (ABNORMAL) CREATININE (05/15/2023 2:37 PM CDT) CREATININE S/P/B 0.79 0.55 - 1.02 MG/DL 05/15/2023 3:06 PM CDT [facility] GFR ESTIMATE 83(L) >90 ML/MIN/1.7 3 M2 05/15/2023 3:06 PM CDT [facility] Comment: NOTE: eGFR is not calculated for patients <18 years of age. This is an estimated GFR calculation using the new CKD EPI creatinine equation without race and so does not require a correction factor for race. This estimated GFR should not be used for calculating drug doses. 05/15/2023 2:37 PM CDT William Melgoza MD,PHD LABORATORY Final Re sult [facility] [address] [place] [address], [place] [phone] * BUN (05/15/2023 2:37 PM CDT) BUN 16 7 - 18 MG/DL 05/15/2023 3:06 PM CDT [facility] 05/15/2023 2:37 PM CDT William Melgoza MD,PHD LABORATORY Final Re sult [facility] [address] [place] [address], [place] [phone] documented in this encounter Visit Diagnoses Diagnosis Chest pain- Primary Chest pain, unspecified BERMEO (dyspnea on exertion) Other dyspnea and respiratory abnormality documented in this encounter Care Teams Batch Analyst Relationship Specialty Start Date End Date None, Provider, PCP - General 04/01/22 07/06/24 documented as of this encounter
--- OUTSIDE RECORDS SUMMARY | 2024-07-19 14:00 | XMS_ITS | Encounter Summary ---
Author Organization [facility] Address [address] [place] [address]. [place] [address] [place] [address] Care Team Providers Care Fermentation Operator Name Role Phone None, Provider Primary Care Provider Unavaila ble Reason for Referral * Imaging (Routine) - Closed Specialty Diagnoses / Procedures Referred By [place] t Referred To Contact RADIOLOGY Diagnoses Precordial pain Procedures CTA CORONARY W SCORING Guerline Armstrong MD,PHD Referral ID Status Reason Start Date Expiration Date Visits Re quested Visits Authorized [id number] Closed 01/12/2023 02/12/2024 1 1 Reason for Visit * Imaging (Routine) - Closed Specialty Diagnoses / Procedures Referred By Contac t Referred To Contact RADIOLOGY Diagnoses Precordial pain Procedures CTA CORONARY W SCORING Guerline Armstrong MD,PHD Referral ID Status Reason Start Date Expiration Date Visits Re quested Visits Authorized [id number] Closed 01/12/2023 02/12/2024 1 1 Encounter Details Date Type Department Care Team (Latest Contact Info) Description 05/13/2023 12:43 PM CDT - 05/13/2023 11:59 PM CDT Hospital Encounter [facility] [place] [address] Guerline Armstrong MD,PHD Discharge Disposition: Home or [...] st Contact Info) Description 07/26/2024 7:40 AM DRAW MACHINE OPERATOR Laboratory Only [facility] Family Medicine - [place] [address] [place] [address] Chante Hamilton MD [address] [place], [place] [address] 09/05/2024 10:15 AM DRAW MACHINE OPERATOR Office Visit [facility] [address] [place], [place] [phone] Wilfrido Hobbs MD [facility], [address] [place] [address] documented as of this encounter Procedures Procedure [...] : ??1960 Date of Study: ??05-13-2023 Interpreting Supervisor Telephone Answering Service: ??JAYLON DIAZ M.D. Indication: ??Evaluate coronaries History: [...] ??Reassurance. ??Consider non-atherosclerotic causes of symptoms. Interpreting Supervisor Telephone Answering Service: ??JAYLON DIAZ M.D. 05/17/23 Narrative 05/14/2023 5:08 [...] the direction of the cardiology service. The human performance technologist is performing interpretation of the coronary artery vessels and heart. Interpretation of the surrounding lungs as well as mediastinal soft tissues is provided by the radiologist as below in addition to calcium scoring results. Comparison: None Calcium scoring results: Left main: 0 ?LAD: 0 Circumflex: 0 ? Right coronary: 0 ?? Total Score: 0 ? Calcium score guidelines: Total Score* Calcium Plaque [place] ??*Risk ?*Probability of significant CAD 0 ?No [...] Luis Enrique Bland MD, 05/14/2023 5:04 PM Guerline Armstrong MD,PHD CT Edited R esult - Final * CREATININE WHOLE BLOOD (05/13/2023 1:12 PM CDT) CREATININE WHOLE BLOOD 0.7 0.60 - 1.10 mg/dL 05/13/2023 1:17 PM CDT [facility] 05/13/2023 1:12 PM CDT Guerline Armstrong MD,PHD LABORATORY Final Re sult [facility] [address] [place] [address], [place] [phone] documented in this encounter Visit Diagnoses Diagnosis [...] mg documented in this encounter Care Teams Fermentation Operator Relationship Specialty Start Date End Date None, Provider, PCP - General 04/01/22 07/06/24 documented as of this encounter
--- OUTSIDE RECORDS SUMMARY | 2024-07-19 14:00 | XMS_ITS | Encounter Summary ---
Author Organization [facility] Address [address] [place] [address]. [place] [address] [place] [address] Care Team Providers Care Medical Review Specialist Name Role Phone None, Provider Primary [...] st Contact Info) Description 07/26/2024 7:40 AM AUTOMOBILE MECHANIC SUPERVISOR Laboratory Only [facility] Family Medicine - [place] [address] [place] [address] Chante Hamilton MD [address] [place] [phone] 09/05/2024 10:15 AM AUTOMOBILE MECHANIC SUPERVISOR Office Visit [facility] [address] [place], [place] [address] Wilfirdo Hobbs MD [facility], [address] [place] [address] documented as of this encounter Visit Diagnoses Not on filedocumented in this encounter Care Teams Medical Review Specialist Relationship Specialty Start Date End Date None, Provider, PCP - General 04/01/22 07/06/24 documented as of this encounter
--- OUTSIDE RECORDS SUMMARY | 2024-07-19 14:00 | XMS_ITS | Encounter Summary ---
Author Organization [facility] Address [address] [place] [address]. [place] [address] [place] [address] Care Team Providers Care Flower Grader Name Role Phone None, Provider Primary Care Provider Unavaila ble Reason for Referral * Imaging (Routine) - Closed Specialty Diagnoses / Procedures Referred By Yris tsai Referred To Contact RADIOLOGY Diagnoses Precordial pain Procedures CTA CORONARY W SCORING William Melgoza MD,PHD Referral ID Status Reason Start Date Expiration Date Visits Re quested Visits Authorized [id number] Closed 01/12/2023 02/12/2024 1 1 Reason for Visit * Reason Comments Chest Pain 6mo follow up Breathing Problem Encounter Details Date Type Department Care Team (Latest Contact Info) Description 01/12/2023 2:00 PM CDT Office Visit [facility] [address] [address] William Melgoza MD,PHD Chest Pain [...] MATA Medrano - 01/12/2023 2:00 PM CDT Senior Information Security Consultant will call to schedule CTA at [facility] in [place]. Information/instructions will also be mailed to you. Make sure you call the hospital to inquire about a payment/fee schedule for self pay patients. * Attachments The following attachments cannot be sent through Care Everywhere. * Computed Tomography Angiography, Coronary ([place]) documented in this encounter Progress Notes * William Melgoza MD,PHD - 01/12/2023 2:00 PM CDT Images from the original note were not included. [place], [place] [address] Reason for Visit: Chest Pain (6mo follow [...] W CON Echocardiography Report Pat.Name: KARLY NAZARIO.ID: [id number] .Date: 06/30/2022 Refer.: [id number] PATTI Tsai EWDPROV EWDPROV Exam Time: 7:51:00 AM Study Type:ECHO WITH CARDIAC DOPPLER COMP Height: 59 in Weight: 161 lb BSA: 1.68 m2 Age: 9 1960,62Y Sex: F BP: 135/62 HR: 79 bpm Sonogrphr: Mandy Fam RD, [facility] Pat. Stat.:Outpatient Reason for Study:Chest [...] Left Ventricula 146 mmHg Mitral Valve Decel [place] 530 cm/s2 Mitral Valve A 1.39 HR [...] vol s MOD A2 3 cm Minor [place] (Tory 3.71 cm LV vol s MOD [...] Left Atrium LA VOLBP 45 ml Major [place] (Sys 4.6 cm Lamb Disk Nu 9 Major [place] (Sys 4.62 cm Ratios IVS Ventricular Septum IVSd 0.898 cm Aorta AO Dd 2.96 cm LV Area-Length Biplane LVEDV 104 ml LVESV 33.3 ml LV Area-Length Single Plane LVEDV 98.5 ml LVESV 29.5 ml LVEDV 113 ml LVESV 38.9 ml LVOT LVOTArea 3.83 cm2 Cardiovascular 2.21 cm Right Atrium Major [place] (Sys 4.11 cm Lamb Disk Nu 9 HR 62 bpm RA Area-Length Single Plane Volume (Systole 16.6 ml/m2 RA Single Plane RA sys Area 11.6 cm2 Volume (Systole 25.9 ml Right Ventricle RVIDd 3.29 cm HR 68 bpm Major [place] (Tory 6.25 cm Minor [place] (Tory 2.56 cm RVOT PG pk 3.59 [...] M.D. Stress Echocardiography Report Pat.Name: KARLY NAZARIO.ID: [id number] St.Date: 06/12/2022 Refer.MD: [id number] PATTI Tsai EWDPROV EWDPROV Exam Time: 10:51:00 AM Study Type:STRESS ECHO DOPPLER COLOR FLOW Height: 59 in Weight: 161 lb BSA: 1.68 m2 Age: 9 1960,62Y Sex: F BP: 141/77 HR: 86 bpm Sonogrphr: Portia Escalante [facility] Pat. Stat.:Outpatient Reason for Study:Chest pain [...] 96 % Max BP: 156/80 Max RPP: 68161 Contrast: Definity 2 ml Symptoms and Complications: [...] to contact me or our team at [facility]. William Melgoza MD,PHD Referring Provider: No ref. provider found PCP: Provider MD Praveen documented in this encounter Plan of Treatment Upcoming Encounters Date Type Department Care Team (Late st Contact Info) Description 07/26/2024 7:40 AM PLUG CUTTING MACHINE OPERATOR Laboratory Only [facility] Family Medicine - [place] [address] [place], [place] [address] Chante Hamilton MD [address] [place] [address] 09/05/2024 10:15 AM PLUG CUTTING MACHINE OPERATOR Office Visit [facility] [address] [place] [address] Wilfrido Hobbs MD Three [facility], [address] [place] [address] documented as of this encounter Results * CTA CORONARY W SCORING (05/13/2023 1:35 PM CDT) Anatomical Region Laterality Modality Chest Computed Tomogra phy, Radiographic Imaging 05/14/2023 5:04 PM CDT Addenda Addendum by Zina Diaz MD on 05/17/2023 8:01 PM CDT Table formatting from the original result was not included. CT ANGIOGRAM (Cardiology Portion) Patient Name: ??Karly Nazario : ??1960 Date of Study: ??05-13-2023 Interpreting Clinical Care Leader: ??ZINA DIAZ M.D. Indication: ??Evaluate coronaries History: [...] ??Reassurance. ??Consider non-atherosclerotic causes of symptoms. Interpreting Clinical Care Leader: ??ZINA DIAZ M.D. 05/17/23 Narrative 05/14/2023 5:08 [...] the direction of the cardiology service. The court advocate is performing interpretation of the coronary artery vessels and heart. Interpretation of the surrounding lungs as well as mediastinal soft tissues is provided by the radiologist as below in addition to calcium scoring results. Comparison: None Calcium scoring results: Left main: 0 ?LAD: 0 Circumflex: 0 ? Right coronary: 0 ?? Total Score: 0 ? Calcium score guidelines: Total Score* Calcium Plaque [place] ??*Risk ?*Probability of significant CAD 0 ?No [...] pain documented in this encounter Care Teams Flower Grader Relationship Specialty Start Date End Date None, Provider, PCP - General 04/01/22 07/06/24 documented as of this encounter
--- OUTSIDE RECORDS SUMMARY | 2024-07-19 14:00 | XMS_ITS | Encounter Summary ---
Author Organization [facility] Address [address] [place] [address]. [place] [address] [place] [address] Care Team Providers Care Speech Communication Professor Name Role Phone None, Provider Primary Care Provider Noea ble Encounter Details Date Type Department Care Team (Late Contact Info) Description 08/29/2022 Orders Only [facility] [address] Genericprovider, Default History Social History Tobacco Use [...] st Contact Info) Description 07/26/2024 7:40 AM CIGAR WRAPPER Laboratory Only [facility] Family Medicine - [place] [address] [place] [phone] Chante Hamilton MD [address] [place], [place] [phone] 09/05/2024 10:15 AM CIGAR WRAPPER Office Visit [facility] [address] [place] [address] Wilfrido Hobbs MD Three [facility] [address] [place] [address] documented as of this encounter Procedures Procedure Name Priority Date/Time Associated Diagnosis Comments ECG 12-LEAD Routine 03/29/2022 documented in this encounter Results * ECG 12 lead (03/29/2022) us Default History Genericprovider ECG ORDERABLES Final Result documented in this encounter Visit Diagnoses Not on filedocumented in this encounter Care Teams Speech Communication Professor Relationship Specialty Start Date End Date None, Provider, PCP - General 04/01/22 07/06/24 documented as of this encounter
--- OUTSIDE RECORDS SUMMARY | 2024-07-19 14:00 | XMS_ITS | Encounter Summary ---
Author Organization [facility] Address [address] [place] [address]. [place] [address] [place] [address] Care Team Providers Care Assistant Pastry Chef Name Role Phone None, Provider Primary Care Provider Unavaila ble Reason for Visit * Reason Onset Date Comments Schedule Test 01/13/2023 Coronary cta Encounter Details Date Type Department Care Team (Late st Contact Info) Description 01/13/2023 Telephone [facility] THREE [facility], [address] [address] William Melgoza MD,PHD Schedule Test (Coronary cta) [...] ok to schedule she will be calling [facility] financial assistance Metoprolol tartrate 100mg will be called to [facility] [place] LM for Ana * Octavia Marion - 01/13/2023 11:20 AM CDT LM for pt to call office * Octavia Marion - 01/13/2023 11:20 AM CDT ----- Message from MATA Medrano sent at 01/12/2023 2:44 PM CDT ----- Coronary CTA Dx: CP, BERMEO Patient is self pay, she is going to call [facility] to set up a payment schedule. Not sure if she has to have the testing scheduled prior. documented in this encounter Plan of Treatment Upcoming Encounters Date Type Department Care Team (Late st Contact Info) Description 07/26/2024 7:40 AM TIRE SERVICE TECHNICIAN Laboratory Only [facility] Family Medicine - [place] [address] [place] [address] Chante Hamilton MD [address] [place] [address] 09/05/2024 10:15 AM TIRE SERVICE TECHNICIAN Office Visit [facility] [address] [place] [address] Wilfrido Hobbs MD [facility], [address] [place] [address] documented as of this encounter Visit Diagnoses Not on filedocumented in this encounter Care Teams Assistant Pastry Chef Relationship Specialty Start Date End Date None, Provider, PCP - General 04/01/22 07/06/24 documented as of this encounter
--- OUTSIDE RECORDS SUMMARY | 2024-07-19 14:00 | XMS_ITS | Encounter Summary ---
Author Organization [facility] Address [address] [place] [address]. [place] [address] [place] [address] Care Team Providers Care Presales Senior Specialist Name Role Phone None, Provider Primary [...] st Contact Info) Description 07/26/2024 7:40 AM DIRECTOR OF TEACHING AND LEARNING Laboratory Only [facility] Family Medicine - [place] [address] [place] [phone] Chante Hamilton MD [address] [place] [phone] 09/05/2024 10:15 AM DIRECTOR OF TEACHING AND LEARNING Office Visit [facility] [address] [place] [address] Wilfrido Hobbs MD [facility], [address] [place] [address] documented as of this encounter Visit Diagnoses Not on filedocumented in this encounter Care Teams Presales Senior Specialist Relationship Specialty Start Date End Date None, Provider, PCP - General 04/01/22 07/06/24 documented as of this encounter
--- OUTSIDE RECORDS SUMMARY | 2024-07-19 14:00 | XMS_ITS | Encounter Summary ---
Author Organization [facility] Address [address] [place] [address]. [place] [address] [place] [address] Care Team Providers Care Rock Cutter Name Role Phone None, Provider Primary Care Provider Chante Gee MD Primary Care Provider + Encounter Details Date Type Department Care Team (Late Contact Info) Description 04/10/2022 [facility], [address] [address] Anshu Mendez MA Social History Tobacco Use [...] (Late Contact Info) Description 07/26/2024 7:40 AM CONTAINER PACKER OPERATOR Laboratory Only [facility] Family Medicine [facility] [address] [address] Chante Hamilton MD [address] [place], [place] [address] 09/05/2024 10:15 AM CONTAINER PACKER OPERATOR Office Visit [facility] [address] [place] [address] Wilfrido Hobbs MD Three [facility], [address] [place] [address] documented as of this encounter Procedures Procedure Name Priority Date/Time Associated Diagnosis Comments LIPID PANEL Routine 04/09/2022 documented in this encounter Results * LIPID PANEL (04/09/2022) CHOLESTEROL 208 HDL 52 TRIGLYCERIDES 141 DIRECT LDL 116 04/09/2022 us Doc [facility] Abstract LABORATORY Final Result documented in this encounter Visit Diagnoses Not on filedocumented in this encounter Care Teams Rock Cutter Relationship Specialty Start Date End Date None, Provider, PCP - General 04/01/22 07/06/24 Chante Hamilton MD [address] [place] [address] PCP - General FAMILY PRACTICE 07/07/24 documented as of this encounter
--- OUTSIDE RECORDS SUMMARY | 2024-07-19 14:00 | XMS_ITS | Encounter Summary ---
Author Organization [facility] Address [address] [place] [address]. [place] [address] [place] [address] Care Team Providers Care Data Transcriber Name Role Phone None, Provider Primary Care Provider Unavaila ble Reason for Visit * Reason Onset Date Comments Results 06/16/2022 SE Encounter Details Date Type Department Care Team ([facility] st Contact Info) Description 06/16/[address] [address] Kandace Velásquez, RN Results (SE) Social History [...] Coronavirus/COVID-19? No / Unsure 06/12/2022 10:04 AM BAR TACKER documented as of this encounter Progress Notes [...] and v/u. Patient had no further questions. TACKER documented in this encounter Plan of Treatment Upcoming Encounters Date Type Department Care Team (Late st Contact Info) Description 07/26/2024 7:40 AM BAR TACKER Laboratory Only [facility] Family Medicine - [place] [address] [place], [place] [address] Chante Hamilton MD [address] [place], [place] [phone] 09/05/2024 10:15 AM BAR TACKER Office Visit [facility] [address] [place], [place] [phone] Wilfrido Hobbs MD [facility], [address] [place], [place] [phone] documented as of this encounter Visit Diagnoses Not on filedocumented in this encounter Care Teams Data Transcriber Relationship Specialty Start Date End Date None, Provider, PCP - General 04/01/22 07/06/24 documented as of this encounter
--- OUTSIDE RECORDS SUMMARY | 2024-07-19 14:00 | XMS_ITS | Encounter Summary ---
Author Organization [facility] Address [address] [place] [address]. [place] [address] [place] [address] Care Team Providers Care Capsule Machine Operator Name Role Phone None, Provider Primary [...] st Contact Info) Description 07/26/2024 7:40 AM HORTICULTURAL THERAPIST Laboratory Only [facility] Family Medicine - [place] [address] [place] [address] Chante Hamilton MD [address] [place] [phone] 09/05/2024 10:15 AM HORTICULTURAL THERAPIST Office Visit [facility] [address] [place], [place] [phone] Wilfrido Hobbs MD [facility], [address] [place] [address] documented as of this encounter Visit Diagnoses Not on filedocumented in this encounter Care Teams Capsule Machine Operator Relationship Specialty Start Date End Date None, Provider, PCP - General 04/01/22 07/06/24 documented as of this encounter
--- OUTSIDE RECORDS SUMMARY | 2024-07-19 14:00 | XMS_ITS | Encounter Summary ---
Author Organization [facility] Address [address] [place] [address]. [place] [address] [place] [address] Care Team Providers Care Sales Enablement Analyst Name Role Phone None, Provider Primary Care Provider Unavaila ble Reason for Visit * Reason Onset Date Comments Results 07/01/2022 Encounter Details Date Type Department Care Team ([facility] st Contact Info) Description 07/01/[address] [address] Kandace Velásquez, RN Results Social History Tobacco [...] Coronavirus/COVID-19? No / Unsure 06/30/2022 7:36 AM FROZEN YOGURT MAKER documented as of this encounter Progress Notes [...] and v/u. Patient had no further questions. EN YOGURT MAKER documented in this encounter Plan of Treatment Upcoming Encounters Date Type Department Care Team (Late st Contact Info) Description 07/26/2024 7:40 AM FROZEN YOGURT MAKER Laboratory Only [facility] Family Medicine - [place] [address] [place], [place] [phone] Chante Hamilton MD [address] [place], [place] [address] 09/05/2024 10:15 AM FROZEN YOGURT MAKER Office Visit [facility] [address] [place], [place] [phone] Wilfrido Hobbs MD [facility], [address] [place], [place] [phone] documented as of this encounter Visit Diagnoses Not on filedocumented in this encounter Care Teams Sales Enablement Analyst Relationship Specialty Start Date End Date None, Provider, PCP - General 04/01/22 07/06/24 documented as of this encounter
--- OUTSIDE RECORDS SUMMARY | 2024-07-19 14:00 | XMS_ITS | Encounter Summary ---
Author Organization [facility] Address [address] [place] [address]. [place] [address] [place] [address] Care Team Providers Care All Source Analyst Name Role Phone None, Provider Primary Care Provider Unavaila ble Reason for Visit * Reason Onset Date Comments Schedule Test 05/06/2022 Echo 06/02/22 an d SE 06/12/22 Encounter Details Date Type Department Care Team (Late st Contact Info) Description 05/06/2022 Telephone [facility] [address] [address] William Melgoza MD,PHD Schedule Test (Echo 06/02/22 [...] paperwork turned in. Message to Nasrin at [phone] testing scheduled. documented in this encounter Plan of Treatment Upcoming Encounters Date Type Department Care Team (Late st Contact Info) Description 07/26/2024 7:40 AM SEISMIC INTERPRETER Laboratory Only [facility] Medical [facility] Family Medicine - [place] [address] [place] [address] Chante Hamilton MD [address] [place] [address] 09/05/2024 10:15 AM SEISMIC INTERPRETER Office Visit [facility] [address] [place] [address] Wilfrido Hobbs MD [facility], [address] [place], [place] [address] documented as of this encounter Visit Diagnoses Not on filedocumented in this encounter Care Teams All Source Analyst Relationship Specialty Start Date End Date None, Provider, PCP - General 04/01/22 07/06/24 documented as of this encounter
--- OUTSIDE RECORDS SUMMARY | 2024-07-19 14:00 | XMS_ITS | Encounter Summary ---
Author Organization [facility] Address [address] [place] [address]. [place] [address] [place] [address] Care Team Providers Care Nuclear Physician Name Role Phone None, Provider Primary Care Provider Noea ble Encounter Details Date Type Department Care Team (Late Contact Info) Description 08/29/2022 Scan [facility] [address] Scanned, Doc Pccl Social History Tobacco Use [...] (Late Contact Info) Description 07/26/2024 7:40 AM RESPIRATORY THERAPY MANAGER Laboratory Only [facility] Family Medicine - [place] [address] [place], [place] [address] Chante Hamilton MD [address] [place] [id number] 09/05/2024 10:15 AM RESPIRATORY THERAPY MANAGER Office Visit [facility] [address] [place] [address] Wilfrido Hobbs MD Three [facility], [address] [place] [address] documented as of this encounter Visit Diagnoses Not on filedocumented in this encounter Care Teams Nuclear Physician Relationship Specialty Start Date End Date None, Provider, PCP - General 04/01/22 07/06/24 documented as of this encounter
--- OUTSIDE RECORDS SUMMARY | 2024-07-19 14:00 | XMS_ITS | Encounter Summary ---
Author Organization [facility] Address [address] [place] [address]. [place] [address] [place] [address] Care Team Providers Care Cloth Beamer Name Role Phone None, Provider Primary Care Provider Unavaila ble Reason for Visit * Reason Comments Chest Pain Breathing Problem 1 month follow up Encounter Details Date Type Department Care Team (Late st Contact Info) Description 07/04/2022 9:00 AM WINTERIZER Office Visit [facility] [address] [address] William Melgoza MD,PHD Chest Pain; Breathing Problem [...] Coronavirus/COVID-19? No / Unsure 07/04/2022 8:38 AM WINTERIZER documented as of this encounter Last Filed Vital Signs Vital Sign Reading Time Taken Comments Blood Pressure 126/78 07/04/2022 8:42 AM WINTERIZER Pulse 85 07/04/2022 8:42 AM WINTERIZER Temperature - - Respiratory Rate - - Oxygen Saturation 97% 07/04/2022 8:42 AM WINTERIZER Inhaled Oxygen Concentration - - Weight 73.9 kg (163 lb) 07/04/2022 8:42 AM WINTERIZER Height 149.9 cm (4' 11 ) 07/04/2022 8:42 AM WINTERIZER Body Mass Index 32.92 07/04/2022 8:42 AM WINTERIZER documented in this encounter Patient Instructions * Attachments The following attachments cannot be sent through Care Everywhere. * Computed Tomography Angiography, Coronary (Citizen Of [place]) documented in this encounter Progress Notes * William Melgoza MD,PHD - 07/04/2022 9:00 AM CST Images from the original note were not included. [place], [place] [address] Reason for Visit: Chest Pain and Breathing Problem (1 month follow up ) History of Present Illness: Mrs. Zeb Castellon is a pleasant 62-year-old woman with a [...] ECHOCARDIOGRAM W CON Echocardiography Report Pat.Name: ZEB CASTELLON.ID: [id number] .Date: 06/30/2022 Refer.: [id number] PATTI Rojas EWDPROV EWDPROV Exam Time: 7:51:00 AM Study Type:ECHO WITH CARDIAC DOPPLER COMP Height: 59 in Weight: 161 lb BSA: 1.68 m2 Age: 9 1960,62Y Sex: F BP: 135/62 HR: 79 bpm Sonogrphr: Mandy Fam [facility] Pat. Stat.:Outpatient Reason for Study:Chest pain [...] Left Ventricula 146 mmHg Mitral Valve Decel [place] 530 cm/s2 Mitral Valve A 1.39 HR [...] vol s MOD A2 3 cm Minor [place] (Tory 3.71 cm LV vol s MOD [...] Left Atrium LA VOLBP 45 ml Major [place] (Sys 4.6 cm Lamb Disk Nu 9 Major [place] (Sys 4.62 cm Ratios IVS Ventricular Septum IVSd 0.898 cm Aorta AO Dd 2.96 cm LV Area-Length Biplane LVEDV 104 ml LVESV 33.3 ml LV Area-Length Single Plane LVEDV 98.5 ml LVESV 29.5 ml LVEDV 113 ml LVESV 38.9 ml LVOT LVOTArea 3.83 cm2 Cardiovascular 2.21 cm Right Atrium Major [place] (Sys 4.11 cm Lamb Disk Nu 9 HR 62 bpm RA Area-Length Single Plane Volume (Systole 16.6 ml/m2 RA Single Plane RA sys Area 11.6 cm2 Volume (Systole 25.9 ml Right Ventricle RVIDd 3.29 cm HR 68 bpm Major [place] (Tory 6.25 cm Minor [place] (Tory 2.56 cm RVOT PG pk 3.59 [...] Melgoza M.D. Stress Echocardiography Report Pat.Name: ??ZEB CASTELLON ? Pat.ID: ?[id number] ? St.Date: ?? 06/12/2022 ? Refer.MD: ??[id number] PATTI CUNHA T ? EWDPROV ?EWDPROV Exam [...] % ?Max BP: ?156/80 Max RPP: ?? [address] ? Contrast: ??Definity 2 ml Symptoms and [...] participating in the care of Ms. Zeb Castellon. If you do have any additional questions or requests, please do not hesitate to contact me or our team at [facility]. William Melgoza MD,PHD Referring Provider: No ref. provider found PCP: Anne [place] MD ERIZER documented in this encounter Plan of Treatment Upcoming Encounters Date Type Department Care Team (Late st Contact Info) Description 07/26/2024 7:40 AM WINTERIZER Laboratory Only [facility] Medical [facility] Family Medicine - [place] [address] [place] [address] Chante Hamilton MD [address] [place] [address] 09/05/2024 10:15 AM WINTERIZER Office Visit [facility] [address] [place] [address] Wilfrido Hobbs MD [facility], [address] [place] [address] documented as of this encounter Visit Diagnoses Diagnosis Precordial pain- Primary BERMEO (dyspnea on exertion) Other dyspnea and respiratory abnormality Family history of premature CAD Family history of ischemic heart disease documented in this encounter Care Teams Cloth Beamer Relationship Specialty Start Date End Date None, Provider, PCP - General 04/01/22 07/06/24 documented as of this encounter
--- OUTSIDE RECORDS SUMMARY | 2024-07-19 14:00 | XMS_ITS | Encounter Summary ---
Author Organization [facility] Address [address] [place] [address]. [place] [address] [place] [address] Care Team Providers Care Living Supervisor Name Role Phone None, Provider Primary [...] Expiration Date Visits Re quested Visits Authorized [id number] Closed 04/04/2022 05/04/2023 1 1 Encounter Details Date Type Department Care Team (Latest Contact Info) Description 06/12/2022 10:05 AM PATROL POLICE SERGEANT - 06/12/2022 11:59 PM [facility] Hospital Encounter [facility] [place] [address] William Melgoza MD,PHD Discharge Disposition: Home or [...] Coronavirus/COVID-19? No / Unsure 06/12/2022 10:04 AM PATROL POLICE SERGEANT documented as of this encounter Medications at Time of Discharge Cholecalciferol (VITAMIN D) 50 MCG (1999 UT) Cap Take 1 tablet by mouth daily. 06/03/2021 Saccharomyces boulardii (FLORASTORMAX) 500 MG Pack 03/24/2022 documented as of this encounter Plan of Treatment Upcoming Encounters Date Type Department Care Team (Late st Contact Info) Description 07/26/2024 7:40 AM PATROL POLICE SERGEANT Laboratory Only [facility] Medical Group Family Medicine - [place] [address] [place], [place] [phone] Chante Hamilton MD [address] [place], [place] [phone] 09/05/2024 10:15 AM PATROL POLICE SERGEANT Office Visit [facility] [address] [place], [place] [phone] Wlifrido Hobbs MD [facility], [address] [place] [address] documented as of this encounter Procedures Procedure Name Priority Date/Time Associated Diagnosis Comments USE STRESS ECHO Feliberto Dao MD Routine 06/12/2022 1:52 PM PATROL POLICE SERGEANT Precordial pain BERMEO (dyspnea on exertion) documented in this encounter Results * USE STRESS ECHO Feliberto Dao MD (06/12/2022 1:52 PM PATROL POLICE SERGEANT) Anatomical Region Laterality Modality Cardiac Echocardiogram 06/12/2022 10:5 1 AM PATROL POLICE SERGEANT Narrative 06/16/2022 7:39 AM PATROL POLICE SERGEANT ?Stress Echocardiography Report Pat.Name: ??ZEB CASTELLON ? Pat.ID: ?[id number] ? St.Date: ?? 06/12/2022 ? Refer.MD: ??[id number] PATTI CUNHA T ? EWDPROV ?EWDPROV Exam [...] % ?Max BP: ?156/80 Max RPP: ?? 71678 ? Contrast: ??Definity 2 ml Symptoms and [...] Stress Echocardiography Report Pat.Name: ZEB CASTELLON Pat.ID: [id number] .Date: 06/12/2022 Refer.: [id number] PATTI Tsai EWDPROV EWDPROV Exam Time: 10:51:00 AM Study Type:STRESS ECHO DOPPLER COLOR FLOW Height: 59 in Weight: 161 lb BSA: 1.68 m2 Age: 9 1960,62Y Sex: F BP: 141/77 HR: 86 bpm Sonogrphr: Portia Escalante GELY Pat. Stat.:Outpatient Reason for Study:Chest pain Procedures: [...] 96 % Max BP: 156/80 Max RPP: 71986 Contrast: Definity 2 ml Symptoms and Complications: [...] mL saline flush. Given 06/12/2022 1:32 PM PATROL POLICE SERGEANT 2 mLs documented in this encounter Care Teams Living Supervisor Relationship Specialty Start Date End Date None, Provider, PCP - General 04/01/22 07/06/24 documented as of this encounter
--- OUTSIDE RECORDS SUMMARY | 2024-07-19 14:00 | XMS_ITS | Encounter Summary ---
Author Organization [facility] Address [address] [place] [address]. [place] [address] [place] [address] Care Team Providers Care Engineering Supplies Sales Name Role Phone None, Provider Primary Care [...] Coronavirus/COVID-19? No / Unsure 06/30/2022 7:36 AM CARPENTER ASSISTANT documented as of this encounter Plan of Treatment Upcoming Encounters Date Type Department Care Team (Late st Contact Info) Description 07/26/2024 7:40 AM CARPENTER ASSISTANT Laboratory Only [facility] Medical Group Family Medicine - [place] [address] [place] [phone] Chante Hamilton MD [address] [place] [phone] 09/05/2024 10:15 AM CARPENTER ASSISTANT Office Visit [facility] [address] [place] [address] Wilfrido Hobbs MD [facility], [address] [place] [address] documented as of this encounter Visit Diagnoses Not on filedocumented in this encounter Care Teams Engineering Supplies Sales Relationship Specialty Start Date End Date None, Provider, PCP - General 04/01/22 07/06/24 documented as of this encounter
--- OUTSIDE RECORDS SUMMARY | 2024-07-19 14:00 | XMS_ITS | Encounter Summary ---
Author Organization [facility] Address [address] [place] [address]. [place] [address] [place] [address] Care Team Providers Care Java Developer Analyst Name Role Phone None, Provider Primary Care Provider Unavaila ble Reason for Visit * Reason Onset Date Comments FYI 04/14/2022 for [facility] [place] Assistance Encounter Details Date Type Department Care Team (Late st Contact Info) Description 04/14/2022 Telephone [facility], [address] [address] William Melgoza MD,PHD FYI (LM for RONNA [...] AM CDT Still waiting to hear from [facility] Financial Assistance to schedule SE and Echo - LM for Meghna Malone to call call pt and myself with update on approval documented in this encounter Plan of Treatment Upcoming Encounters Date Type Department Care Team (Late st Contact Info) Description 07/26/2024 7:40 AM OPTICAL COATING TECHNICIAN Laboratory Only [facility] Medical Group Family Medicine - [place] [address] [place] [address] Chante Hamilton MD [address] [place] [address] 09/05/2024 10:15 AM OPTICAL COATING TECHNICIAN Office Visit [facility] [address] [place] [address] Wilfrido Hobbs MD [facility], [address] [place], [place] [address] documented as of this encounter Visit Diagnoses Not on filedocumented in this encounter Care Teams Java Developer Analyst Relationship Specialty Start Date End Date None, Provider, PCP - General 04/01/22 07/06/24 documented as of this encounter
--- OUTSIDE RECORDS SUMMARY | 2024-07-19 14:00 | XMS_ITS | Encounter Summary ---
Author Organization [facility] Address [address] [place] [address]. [place] [address] [place] [address] Care Team Providers Care Processing Specialist Name Role Phone None, Provider Primary Care Provider Unavaila ble Reason for Visit * Imaging (Routine) - Closed Specialty Diagnoses / Procedures Referred By Yris rojas Referred To Contact RADIOLOGY Diagnoses Precordial pain BERMEO (dyspnea on exertion) Procedures USE ECHOCARDIOGRAM W CON USE ECHOCARDIOGRAM William Melgoza MD,PHD Referral ID Status Reason Start Date Expiration Date Visits Re quested Visits Authorized [id number] Closed 04/04/2022 05/04/2023 1 1 Encounter Details Date Type Department Care Team (Latest Contact Info) Description 06/30/2022 7:30 AM BOARD LINER OPERATOR - 06/30/2022 11:59 PM [facility] Hospital Encounter [facility] [place] [address] William Melgoza MD,PHD Discharge Disposition: Home or [...] Coronavirus/COVID-19? No / Unsure 06/30/2022 7:36 AM BOARD LINER OPERATOR documented as of this encounter Medications at Time of Discharge Cholecalciferol (VITAMIN D) 50 MCG (1999) Cap Take 1 tablet by mouth daily. 06/03/2021 Saccharomyces boulardii (FLORASTORMAX) 500 MG Pack 03/24/2022 documented as of this encounter Plan of Treatment Upcoming Encounters Date Type Department Care Team (Late st Contact Info) Description 07/26/2024 7:40 AM BOARD LINER OPERATOR Laboratory Only [facility] Family Medicine - [place] [address] [place], [place] [phone] Chante Hamilton MD [address] [place], [place] [phone] 09/05/2024 10:15 AM BOARD LINER OPERATOR Office Visit [facility] [address] [place] [address] Wilfrido Hobbs MD [facility], [address] [place], [place] [phone] documented as of this encounter Procedures Procedure Name Priority Date/Time Associated Diagnosis Comments USE ECHOCARDIOGRAM W CON Routine 06/30/2022 8:52 AM BOARD LINER OPERATOR Precordial pain BERMEO (dyspnea on exertion) documented in this encounter Results * USE ECHOCARDIOGRAM W CON (06/30/2022 8:52 AM BOARD LINER OPERATOR) Anatomical Region Laterality Modality NA Echocardiogram 06/30/2022 7:51 AM BOARD LINER OPERATOR Narrative 07/01/2022 2:30 PM BOARD LINER OPERATOR ?Echocardiography Report Pat.Name: ??ZEB CASTELLON ? Pat.ID: ?[id number] ? St.Date: ?? 06/30/2022 ? Refer.MD: ??[id number] PATTI CUNHA T ? EWDPROV ?EWDPROV Exam Time: 7:51:00 AM ? Study Type:ECHO WITH CARDIAC DOPPLER COMP Height: ?59 in ? Weight: ?161 lb ? BSA: ? 1.68 m2 ?Age: ??1960,62Y ? Sex: ? F ? BP: ?135/62 ? HR: ?79 bpm ?Sonogrphr: Mandy Fam RDGELY, RCS Pat. Stat.:Outpatient ? Reason for Study:Chest [...] 146 mmHg ? Mitral Valve ?? Decel Marin ?530 cm/s2 ? Mitral Valve A ?? [...] MOD A2 ? 3 cm ?? Minor Amite (Tory ??3.71 cm ? LV vol s [...] Atrium ?? LA VOLBP ?45 ml ?Major Amite (Sys ?? 4.6 cm ?? Lamb Disk Nu ? 9 ?Major Amite (Sys ??4.62 cm ?? Ratios ?? IVS [...] 2.21 cm ?? Right Atrium ?? Major Amite (Sys ??4.11 cm ? Lamb Disk Nu ? 9 ? HR ?62 bpm ? RA Area-Length Single Plane Volume (Systole ??16.6 ml/m2 ? RA Single Plane RA sys Area ? 11.6 cm2 ? Volume (Systole ??25.9 ml ?? Right Ventricle ?? RVIDd ? 3.29 cm ?HR ?68 bpm Major Amite (Tory ??6.25 cm ? Minor Amite (Tory ??2.56 cm ?? RVOT ?? PG [...] MD,PHD - 07/01/2022 Echocardiography Report Pat.Name: ZEB CASTELLON Pat.ID: [id number] .Date: 06/30/2022 Refer.: [id number] PATTI Rojas EWDPROV EWDPROV Exam Time: 7:51:00 AM Study Type:ECHO WITH CARDIAC DOPPLER COMP Height: 59 in Weight: 161 lb BSA: 1.68 m2 Age: 9 1960,62Y Sex: F BP: 135/62 HR: 79 bpm Sonogrphr: Mandy Fam RDCS, [facility] Pat. [...] Left Ventricula 146 mmHg Mitral Valve Decel Marin 530 cm/s2 Mitral Valve A 1.39 HR [...] vol s MOD A2 3 cm Minor Amite (Tory 3.71 cm LV vol s MOD [...] Left Atrium LA VOLBP 45 ml Major Amite (Sys 4.6 cm Lamb Disk Nu 9 Major Amite (Sys 4.62 cm Ratios IVS Ventricular Septum IVSd 0.898 cm Aorta AO Dd 2.96 cm LV Area-Length Biplane LVEDV 104 ml LVESV 33.3 ml LV Area-Length Single Plane LVEDV 98.5 ml LVESV 29.5 ml LVEDV 113 ml LVESV 38.9 ml LVOT LVOTArea 3.83 cm2 Cardiovascular 2.21 cm Right Atrium Major Amite (Sys 4.11 cm Lamb Disk Nu 9 HR 62 bpm RA Area-Length Single Plane Volume (Systole 16.6 ml/m2 RA Single Plane RA sys Area 11.6 cm2 Volume (Systole 25.9 ml Right Ventricle RVIDd 3.29 cm HR 68 bpm Major Amite (Tory 6.25 cm Minor Amite (Tory 2.56 cm RVOT PG pk 3.59 [...] Signature> 07/01/2022 02:30 PM William Melgoza M.D. William Melgoza MD,PHD ECHO Final Re [...] mL saline flush. Given 06/30/2022 8:36 AM BOARD LINER OPERATOR 2 mLs documented in this encounter Care Teams Processing Specialist Relationship Specialty Start Date End Date None, Provider, PCP - General 04/01/22 07/06/24 documented as of this encounter
--- OUTSIDE RECORDS SUMMARY | 2024-07-19 14:00 | XMS_ITS | Encounter Summary ---
Author Organization [facility] Address [address] [place] [address]. [place] [address] [place] [address] Care Team Providers Care Shirt Hemmer Name Role Phone None, Provider MD Primary Care Provider Unavaila ble Reason for Visit * Reason Onset Date Comments Reschedule 03/05/2023 Patient reschedu led coronary cta from 03/06/23 to 04/09/23 Encounter Details Date Type Department Care Team (Late st Contact Info) Description 03/05/2023 Telephone [place] [facility], [address] [address] William Melgoza MD,PHD Reschedule (Patient rescheduled coronary [...] st Contact Info) Description 07/26/2024 7:40 AM AIRCRAFT NAVIGATOR Laboratory Only [facility] Medical Group Family Medicine - [place] [address] [place] [address] Chante Hamilton MD [address] [place], [place] [address] 09/05/2024 10:15 AM AIRCRAFT NAVIGATOR Office Visit [facility] [address] [place] [address] Wilfrido Hobbs MD [facility], [address] [place] [address] documented as of this encounter Visit Diagnoses Not on filedocumented in this encounter Care Teams Shirt Hemmer Relationship Specialty Start Date End Date None, Provider, PCP - General 04/01/22 07/06/24 documented as of this encounter
--- OUTSIDE RECORDS SUMMARY | 2024-07-19 14:00 | XMS_ITS | Encounter Summary ---
Author Organization [facility] Address [address] [place] [address]. [place] [address] [place] [address] Care Team Providers Care Investigations Consultant Name Role Phone None, Provider Primary Care [...] Coronavirus/COVID-19? No / Unsure 07/04/2022 8:38 AM FOOD SERVICE AMBASSADOR documented as of this encounter Plan of Treatment Upcoming Encounters Date Type Department Care Team (Late st Contact Info) Description 07/26/2024 7:40 AM FOOD SERVICE AMBASSADOR Laboratory Only [facility] Medical Group Family Medicine - [place] [address] [place] [phone] Chante Hamilton MD [address] [place] [phone] 09/05/2024 10:15 AM FOOD SERVICE AMBASSADOR Office Visit [facility] [address] [place] [address] Wilfrido Hobbs MD [facility], [address] [place] [address] documented as of this encounter Visit Diagnoses Not on filedocumented in this encounter Care Teams Investigations Consultant Relationship Specialty Start Date End Date None, Provider, PCP - General 04/01/22 07/06/24 documented as of this encounter
--- OUTSIDE RECORDS SUMMARY | 2024-07-19 14:00 | XMS_ITS | Encounter Summary ---
Author Organization [facility] Address [address] [place] [address]. [place] [address] [place] [address] Care Team Providers Care Smoking Pipes Cleaner Name Role Phone None, Provider Primary Care [...] st Contact Info) Description 07/26/2024 7:40 AM CHIEF SUSTAINABILITY OFFICER Laboratory Only [facility] Medical Group Family Medicine - [place] [address] [place] [phone] Chante Hamilton MD [address] [place] [phone] 09/05/2024 10:15 AM CHIEF SUSTAINABILITY OFFICER Office Visit [facility] [address] [place] [address] Wilfrido Hobbs MD [facility], [address] [place] [address] documented as of this encounter Visit Diagnoses Not on filedocumented in this encounter Care Teams Smoking Pipes Cleaner Relationship Specialty Start Date End Date None, Provider, PCP - General 04/01/22 07/06/24 documented as of this encounter
--- OUTSIDE RECORDS SUMMARY | 2024-07-19 14:00 | XMS_ITS | Encounter Summary ---
Author Organization [facility] Address [address] [place] [address]. [place] [address] [place] [address] Care Team Providers Care Bench Repair Technician Name Role Phone None, Provider Primary Care Provider Unavaila ble Reason for Visit * Reason Onset Date Comments Results 09/02/2022 Labs from 2 Encounter Details Date Type Department Care Team (Late st Contact Info) Description 09/02/2022 Telephone [place] [facility], [address] [address] Kandace Velásquez RN Results (Labs from 03/29/22) [...] and v/u. Patient had no further questions. PILER * Kandace Velásquez RN - 09/02/2022 4:51 PM CST ----- Message from William Melgoza MD,PHD sent at 09/02/2022 12:42 PM ROD PILER ----- No acute abnormality noted. PILER documented in this encounter Plan of Treatment Upcoming Encounters Date Type Department Care Team (Late st Contact Info) Description 07/26/2024 7:40 AM ROD PILER Laboratory Only [facility] Medical Group Family Medicine - [place] [address] [place], [place] [address] Chante Hamilton MD [address] [place], [place] [phone] 09/05/2024 10:15 AM ROD PILER Office Visit [facility] [address] [place], [place] [phone] Wilfrido Hobbs MD [facility], [address] [place] [address] documented as of this encounter Visit Diagnoses Not on filedocumented in this encounter Care Teams Bench Repair Technician Relationship Specialty Start Date End Date None, Provider, PCP - General 04/01/22 07/06/24 documented as of this encounter
--- OUTSIDE RECORDS SUMMARY | 2024-07-19 14:00 | XMS_ITS | Encounter Summary ---
Author Organization [facility] Address [address] [place] [address]. [place] [address] [place] [address] Care Team Providers Care Patient Service Specialist Name Role Phone None, Provider Primary Care Provider Unavaila ble Reason for Visit * Reason Onset Date Comments Results 05/27/2023 Encounter Details Date Type Department Care Team (Late st Contact Info) Description 05/27/2023 Telephone [facility] [address] [place], [place] [phone] Anne Florence NP [facility] [address] [place] [address] Results Social History Tobacco Use [...] st Contact Info) Description 07/26/2024 7:40 AM ROTARY SWAGING MACHINE OPERATOR Laboratory Only [facility] Medical Group Family Medicine - [place] [address] [place], [place] [phone] Chante Hamilton MD [address] [place], [place] [address] 09/05/2024 10:15 AM ROTARY SWAGING MACHINE OPERATOR Office Visit [facility] [address] [place] [address] Wilfrido Hobbs MD [facility], [address] [place], [place] [phone] documented as of this encounter Visit Diagnoses Not on filedocumented in this encounter Care Teams Patient Service Specialist Relationship Specialty Start Date End Date None, Provider, PCP - General 04/01/22 07/06/24 documented as of this encounter
--- OUTSIDE RECORDS SUMMARY | 2024-07-19 14:00 | XMS_ITS | Encounter Summary ---
Author Organization [facility] Address [address] [place] [address]. [place] [address] [place] [address] Care Team Providers Care Skid Worker Name Role Phone None, Provider Primary Care Provider Chante Gee MD Primary Care Provider + Encounter Details Date Type Department Care Team (Late st Contact Info) Description 09/02/2022 Abstract [facility] [address] Anshu Mendez MA Social History Tobacco Use [...] st Contact Info) Description 07/26/2024 7:40 AM ENVIRONMENTAL ENGINEERING ASSISTANT Laboratory Only [facility] Medical Group Family Medicine [facility] [address] [facility] [address] [place] [phone] Chante Hamilton MD [address] [place] [phone] 09/05/2024 10:15 AM ENVIRONMENTAL ENGINEERING ASSISTANT Office Visit [facility] [address] [place] [address] Wilfrido Hobbs MD Three [facility], [address] [place] [address] documented as of this encounter Procedures Procedure [...] on filedocumented in this encounter Care Teams Skid Worker Relationship Specialty Start Date End Date None, Provider, PCP - General 04/01/22 07/06/24 Chante Hamilton MD [address] [place] [address] PCP - General FAMILY PRACTICE 07/07/24 documented as of this encounter
--- OUTSIDE RECORDS SUMMARY | 2024-07-19 14:00 | XMS_ITS | Encounter Summary ---
Author Organization [facility] Address [address] [place] [address]. [place] [address] [place] [address] Care Team Providers Care [place] Department Supervisor Name Role Phone None, Provider Primary [...] Coronavirus/COVID-19? No / Unsure 06/12/2022 10:04 AM RELEASE OF INFORMATION SPECIALIST documented as of this encounter Plan of Treatment Upcoming Encounters Date Type Department Care Team (Late st Contact Info) Description 07/26/2024 7:40 AM RELEASE OF INFORMATION SPECIALIST Laboratory Only [facility] Medical Group Family Medicine - [place] [address] [place] [phone] Chante Hamilton MD [address] [place] [phone] 09/05/2024 10:15 AM RELEASE OF INFORMATION SPECIALIST Office Visit [facility] [address] [place] [address] Wilfrido Hobbs MD [facility], [address] [place] [address] documented as of this encounter Visit Diagnoses Not on filedocumented in this encounter Care Teams [place] Department Supervisor Relationship Specialty Start Date End Date None, Provider, PCP - General 04/01/22 07/06/24 documented as of this encounter
--- OUTSIDE RECORDS SUMMARY | 2024-07-19 14:00 | XMS_ITS | Encounter Summary ---
Author Organization [facility] Address [address] [place] [address]. [place] [address] [place] [address] Care Team Providers Care Promotional Representative Name Role Phone None, Provider Primary Care Provider Unavaila ble Reason for Visit * Reason Onset Date Comments Results 04/10/2022 Lipids Encounter Details Date Type Department Care Team ([facility] st Contact Info) Description 04/10/[address] [phone] Kandace Velásquez, RN Results (Lipids) Social History [...] st Contact Info) Description 07/26/2024 7:40 AM SUPERVISOR SPINNING Laboratory Only [facility] Medical Group Family Medicine - [place] [address] [place] [address] Chante Hamilton MD [address] [place], [place] [phone] 09/05/2024 10:15 AM SUPERVISOR SPINNING Office Visit [facility] [address] [place] [address] Wilfrido Hobbs MD [facility], [address] [place] [address] documented as of this encounter Visit Diagnoses Not on filedocumented in this encounter Care Teams Promotional Representative Relationship Specialty Start Date End Date None, Provider, PCP - General 04/01/22 07/06/24 documented as of this encounter
--- OUTSIDE RECORDS SUMMARY | 2024-07-19 14:00 | XMS_ITS | Encounter Summary ---
Author Organization [facility] Address [address] [place] [address]. [place] [address] [place] [address] Care Team Providers Care Biofuels Operations Manager Name Role Phone None, Provider Primary Care Provider Noea ble Encounter Details Date Type Department Care Team (Latest Contact Info) Description 05/15/2023 2:25 PM CDT - 05/15/2023 11:59 PM CDT Hospital Encounter [facility] [place] [address] William Melgoza MD,PHD Discharge Disposition: Home or [...] (Late Contact Info) Description 07/26/2024 7:40 AM VERIFICATION SPECIALIST Laboratory Only [facility] Family Medicine - [place] [address] [place] [address] Chante Hamilton MD [address] [place] [address] 09/05/2024 10:15 AM VERIFICATION SPECIALIST Office Visit [facility] [address] [place] [address] Wilfrido Hobbs MD [facility] [address] [place] [address] documented as of this encounter Procedures Procedure [...] - 1.02 MG/DL 05/15/2023 3:06 PM CDT [facility] GFR ESTIMATE 83(L) >90 ML/MIN/1.7 3 M2 05/15/2023 3:06 PM CDT [facility] Comment: NOTE: eGFR is not calculated [...] Final Re sult Performing Organization Address City/[facility]/ZIP Co de Phone Number [facility] [address] [place] [address], [place] [phone] * BUN (05/15/2023 2:37 PM CDT) BUN 16 7 - 18 MG/DL 05/15/2023 3:06 PM CDT [facility] 05/15/2023 2:37 PM CDT William Melgoza MD,PHD LABORATORY Final Re sult Performing Organization Address [facility] Co de Phone Number [facility] [address] [place] [address], [place] [phone] documented in this encounter Visit Diagnoses Diagnosis Chest pain Chest pain, unspecified BERMEO (dyspnea on exertion) Other dyspnea and respiratory abnormality documented in this encounter Care Teams Biofuels Operations Manager Relationship Specialty Start Date End Date None, Provider, PCP - General 04/01/22 07/06/24 documented as of this encounter
--- OUTSIDE RECORDS SUMMARY | 2024-07-19 14:01 | XMS_ITS | Encounter Summary ---
Author Organization [facility] Address [address] [place] [address]. [place] [address] [place] [address] Care Team Providers Care Seo Expert Name Role Phone None, Provider Primary Care Provider Ryan ble Encounter Details Date Type Department Care Team (Late st Contact Info) Description 03/29/2022 Scan [facility] [address] [place] [address] Scanned, Documents Social History Tobacco Use Types [...] st Contact Info) Description 07/26/2024 7:40 AM BOTTOM BLEACHER Laboratory Only [facility] Family Medicine - [place] [address] [place] [address] Chante Hamilton MD [address] [place] [address] 09/05/2024 10:15 AM BOTTOM BLEACHER Office Visit [facility] [address] [place] [address] Wilfrido Hobbs MD [facility]., [address] [place] [address] Scheduled Orders Name Type Priority Associated Diagnoses Orde r Schedule IMAGE STUDY Imaging Routine Ordered: 08/2021 documented as of this encounter Visit Diagnoses Not on filedocumented in this encounter Care Teams Seo Expert Relationship Specialty Start Date End Date None, Provider, PCP - General 04/01/22 07/06/24 documented as of this encounter
--- OUTSIDE RECORDS SUMMARY | 2024-07-19 14:01 | XMS_ITS | Encounter Summary ---
Author Organization [facility] Address [address] [place] [address]. [place] [address] [place] [address] Care Team Providers Care Tech Brazer Tester Name Role Phone None, Provider Primary Care Provider Unavaila ble Reason for Visit * Reason Comments Chest Pain Consult Encounter Details Date Type Department Care Team (Late st Contact Info) Description 04/04/2022 2:30 PM CDT Office Visit [facility] [address] [address] William Melgoza MD,PHD Chest Pain (Consult) Social [...] sent through Care Everywhere. * Chest Pain (Tajik) * Cardiac Stress Test (Tajik) documented in this encounter Progress Notes * William Melgoza MD,PHD - 04/04/2022 2:30 PM CDT Images from the original note were not included. [place], [place] [address] Reason for Visit: Chest Pain (Consult) History of Present Illness: Mrs. 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 Prior to the episode of chest discomfort she had been experiencing persistent diarrhea after discontinuing diet Pepsi. She was evaluated by GI advanced practice practitioner who started tomer metronidazole with improvement in the diarrhea. She then noticed that his urine was dark and underwent evaluation at [facility] where she was treated for dehydration. A week later she presented on 03/29/2022 to [facility] with chest pain. The discomfort was radiated [...] to contact me or our team at [facility]. William Melgoza MD,PHD Referring Provider: No ref. provider found PCP: Anne Morton MD documented in this encounter Plan of Treatment Upcoming Encounters Date Type Department Care Team (Late st Contact Info) Description 07/26/2024 7:40 AM ROLL EXAMINER Laboratory Only [facility] Family Medicine - [place] [address] [place] [address] Chante Hamilton MD [address] [place] [address] 09/05/2024 10:15 AM ROLL EXAMINER Office Visit [facility] [address] [place], [place] [phone] Wilfrido Hobbs MD [facility], [address] [place], [place] [id number] documented as of this encounter Visit Diagnoses Diagnosis Precordial pain- Primary BERMEO (dyspnea on exertion) Other dyspnea and respiratory abnormality Family history of premature CAD Family history of ischemic heart disease documented in this encounter Care Teams Tech Brazer Tester Relationship Specialty Start Date End Date Anne Morton MD PCP - General 04/01/22 07/06/24 documented as of this encounter
--- OUTSIDE RECORDS SUMMARY | 2024-07-19 14:01 | XMS_ITS | Encounter Summary ---
Author Organization [facility] Address [address] [place] [address]. [place] [address] [place] [address] Care Team Providers Care Equine Vet Name Role Phone None, Provider Primary Care Provider Ryan ble Encounter Details Date Type Department Care Team (Late st Contact Info) Description 03/29/2022 Scan [facility] [address] [place] [address] Scanned, Documents Social History Tobacco [...] st Contact Info) Description 07/26/2024 7:40 AM PRESALES SENIOR SPECIALIST Laboratory Only [facility] Family Medicine - [place] [address] [place] [address] Chante Hamilton MD [address] [place] [address] 09/05/2024 10:15 AM PRESALES SENIOR SPECIALIST Office Visit [facility] [address] [place] [address] Wilfrido Hobbs MD [facility]., [address] [place] [address] documented as of this encounter Procedures Procedure Name Priority Date/Time Associated Diagnosis Comments ECG GENERIC (SCAN ORDER) Routine 03/29/2022 documented in this encounter Results * ECG (03/29/2022) us Documents Scanned SCANNING Final Result [facility] documented in this encounter Visit Diagnoses Not on filedocumented in this encounter Care Teams Equine Vet Relationship Specialty Start Date End Date None, Provider, PCP - General 04/01/22 07/06/24 documented as of this encounter
--- OUTSIDE RECORDS SUMMARY | 2024-07-19 14:01 | XMS_ITS | Encounter Summary ---
Author Organization [facility] Address [address] [place] [address]. [place] [address] [place] [address] Care Team Providers Care Private Detective Name Role Phone None, Provider Primary Care Provider Ryan ble Encounter Details Date Type Department Care Team (Late st Contact Info) Description 03/29/2022 Scan [facility], [address] [place] [address] Scanned, Documents Social History Tobacco [...] st Contact Info) Description 07/26/2024 7:40 AM BAG BLEACHER Laboratory Only [facility] Family Medicine - [place] [address] [place] [address] Chante Hamilton MD [address] [place] [address] 09/05/2024 10:15 AM BAG BLEACHER Office Visit [facility] [address] [place] [address] Wilfrido Hobbs MD [facility]., [address] [place] [address] documented as of this encounter Visit Diagnoses Not on filedocumented in this encounter Care Teams Private Detective Relationship Specialty Start Date End Date None, Provider, PCP - General 04/01/22 07/06/24 documented as of this encounter
--- OUTSIDE RECORDS SUMMARY | 2024-07-19 14:01 | XMS_ITS | Encounter Summary ---
Author Organization [facility] Address [address] [place] [address]. [place] [address] [place] [address] Care Team Providers Care Engraver Automatic Name Role Phone None, Provider Primary Care Provider Unavaila ble Reason for Visit * Reason Onset Date Comments Information 04/01/2022 [facility] / records received Encounter Details Date Type Department Care Team (Late Contact Info) Description 04/01/2022 Telephone [facility] [facility], [address] [address] William Melgoza MD,PHD Information ([facility] / records received) Social History Tobacco Use [...] 2:22 PM CDT 04/01/22 Records received from [facility]: 03/29/22 ER note, ekg, labs, CXR. documented in this encounter Plan of Treatment Upcoming Encounters Date Type Department Care Team (Late st Contact Info) Description 07/26/2024 7:40 AM MALTHOUSE LABORER Laboratory Only [facility] [address] [place] [address] Chante Hamilton MD [address] [place] [address] 09/05/2024 10:15 AM MALTHOUSE LABORER Office Visit [facility] [address] [place] [address] Wilfrido Hobbs MD [facility], [address] [place] [address] documented as of this encounter Visit Diagnoses Not on filedocumented in this encounter Care Teams Engraver Automatic Relationship Specialty Start Date End Date None, Provider, PCP - General 04/01/22 07/06/24 documented as of this encounter
--- OUTSIDE RECORDS SUMMARY | 2024-07-19 14:05 | XMS_ITS | Encounter Summary ---
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
--- OUTSIDE RECORDS SUMMARY | 2024-07-19 14:05 | XMS_ITS | Encounter Summary ---
Author Organization [facility] Address [address] [place] [address] Phone Care Team Providers Care Escape Wheel Tooth Cutter Name Role Phone Provider, None Primary Care Provider Unavailabl e Reason for Visit * Reason Onset Date Comments Stye 08/01/2021 possible Encounter Details Date Type Department Care Team (Late st Contact Info) Description 08/01/2021 Nurse Triage [facility] [address] [place] [address] Provider, None [facility] (possible) Social History Tobacco Use Types Packs/Day Years Used Date Smoking Tobacco: Never Smokeless Tobacco: Never Alcohol Use Standard Drinks/Week Comments Not Currently 0 (1 standard drink = 0.6 oz pur e alcohol) Comments Unknown Sex and Gender Information Value Date Recorded Sex Assigned at Not on file 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 No / Unsure 07/25/2021 2:38 PM ROTOR CASTING MACHINE SETUP OPERATOR documented as of this encounter Miscellaneous Notes * Telephone Encounter - Katia Mark RN - 08/01/2021 5:29 PM CST S: Bump on inner eyelid B: Caller was treated for eye infection at [facility] 07/25 foracute bacterial conjunctivitis of the left [...] ??? Sty on eyelid Protocols used: STY-A-AH R CASTING MACHINE SETUP OPERATOR documented in this encounter Plan of Treatment Not on file documented as of this encounter Visit Diagnoses Not on filedocumented in this encounter Care Teams Escape Wheel Tooth Cutter Relationship Specialty Start Date End Date Provider, None [place] PCP - General 07/25/21 documented as of this encounter
--- OUTSIDE RECORDS SUMMARY | 2024-07-19 14:05 | XMS_ITS | Encounter Summary ---
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 No / Unsure 07/25/2021 2:38 PM OPERATOR AND TRUCK DRIVER documented as of this encounter Plan of Treatment Not on file documented as of this encounter Visit Diagnoses Not on filedocumented in this encounter Care Teams Chief Compliance Officer Relationship Specialty Start Date End Date Provider, Praveen ANDINO PCP - General 07/25/21 documented as of this encounter
--- OUTSIDE RECORDS SUMMARY | 2024-07-19 14:05 | XMS_ITS | Clinical Summary ---
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
--- OUTSIDE RECORDS SUMMARY | 2024-07-19 14:05 | XMS_ITS | Encounter Summary ---
Author Organization [facility] Address [address] 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 MZ: JEFFRY Report ID: [id number] Reading Location: [id number] IMPRESSION: Focal swelling at the palmar aspect of the long finger, just proximal to the distal interphalangeal joint. No radiopaque foreign body and no adjacent osseous destruction. Dena Malloy BUYERS' AGENT, GUIDANCE AND CONTROL SYSTEM ENGINEER IMG DIAGNOSTIC ORDDano DEMARCO Final Result documented in this encounter Visit Diagnoses Diagnosis Finger mass, left- Primary Localized superficial swelling, mass, or lump documented in this encounter Care Teams Cell Tower Climber Relationship Specialty Start Date End Date Provider, None [place] PCP - General 07/25/21 documented as of this encounter
--- OUTSIDE RECORDS SUMMARY | 2024-07-19 14:05 | XMS_ITS | Encounter Summary ---
Author Organization [facility] Address [address] [place] [address] Phone Care Team Providers Care Big Data Solutions Architect Name Role Phone Provider, None Primary Care Provider Unavailabl e Reason for Visit * Reason Comments Cellulitis left eye Encounter Details Date Type Department Care Team (Latest Contact Info) Description 07/25/2021 2:40 PM OXYGEN THERAPY TEACHER [facility] [place] [address] [place] [address] Dena Malloy, REPAIR CAMERAMAN, SECURITY NURSE [address] [place] [address] Acute bacterial conjunctivitis of left [...] on file Legal Sex Female 2:37 PM OXYGEN THERAPY TEACHER Gender Identity Not on file Sexual Orientation Not on file COVID-19 Exposure Response Date Recorded In the last month, have you been in contact with someone who was confirmed or suspected to have Coronavirus / COVID-19? No / Unsure 07/25/2021 2:38 PM OXYGEN THERAPY TEACHER documented as of this encounter Last Filed Vital Signs Vital Sign Reading Time Taken Comments Blood Pressure 146/80 07/25/2021 3:57 PM OXYGEN THERAPY TEACHER Pulse 97 07/25/2021 3:57 PM OXYGEN THERAPY TEACHER Temperature 36.8 ??C (98.2 ??F) 07/25/2021 3:57 PM CS T Respiratory Rate 18 07/25/2021 3:57 PM OXYGEN THERAPY TEACHER Oxygen Saturation 96% 07/25/2021 3:57 PM OXYGEN THERAPY TEACHER Inhaled Oxygen Concentration - - Weight - - Height - - Body Mass Index - - documented in this encounter Patient Instructions * Patient Instructions* Dena Malloy, JORGE, BHARTI - 07/25/2021 2:40 PM OXYGEN THERAPY TEACHER Images from the original note were not [...] to feel better. ?? Take or apply bqsg-boh-laqrevw and prescription medicines only as told by [...] provider. Document Revised: 11/08/2019 Document Reviewed: 02/23/2019 [employer] Patient Education ?? 2020 [employer] Care as instructed on AVS If medication was prescribed it was sent to the pharmacy. Take all medication as prescribed. Do not skip a dose and take until completed. Follow up with PCP if the symptoms do not improve Go to the ER if symptoms become severe EN THERAPY TEACHER documented in this encounter Progress Notes * [...] The treatment provided no relief. Today's ROS EN THERAPY TEACHER * Dena Malloy APRN, SECURITY NURSE - 07/25/2021 2:40 PM CST Images from [...] Negative for discharge. Lower lid with dark [place] under it Neurological: Positive for headaches (behind [...] to feel better. ?? Take or apply uokh-tsn-kggryrs and prescription medicines only as told by [...] provider. Document Revised: 11/08/2019 Document Reviewed: 02/23/2019 [employer] Patient Education ?? 2020 [employer] Care as instructed on AVS If [...] verified, with additions or corrections, as appropriate. EN THERAPY TEACHER documented in this encounter Plan of Treatment Not on file documented as of this encounter Visit Diagnoses Diagnosis Acute bacterial conjunctivitis of left eye- Primary documented in this encounter Care Teams Big Data Solutions Architect Relationship Specialty Start Date End Date Provider, None [place] PCP - General 07/25/21 documented as of this encounter
--- OUTSIDE RECORDS SUMMARY | 2024-07-19 14:05 | XMS_ITS | Encounter Summary ---
Author Organization [facility] Address [address] 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 MZ: JEFFRY Report ID: [id number] Reading Location: [id number] IMPRESSION: Focal swelling at the palmar aspect of the long finger, just proximal to the distal interphalangeal joint. No radiopaque foreign body and no adjacent osseous destruction. us Dena Malloy BOAT HOIST OPERATOR, WATCHER [employer] IMG DIAGNOSTIC ORDE DAV Final Result documented in this encounter Visit Diagnoses Not on filedocumented in this encounter Care Teams Lemon Picker Relationship Specialty Start Date End Date Provider, None [place] PCP - General 07/25/21 documented as of this encounter
--- OUTSIDE RECORDS SUMMARY | 2024-07-19 14:05 | XMS_ITS | Encounter Summary ---
Author Organization [facility] Address [address] [place] [address] Phone Care Team Providers Care Golf Course Ranger Name Role Phone Provider, None Primary Care Provider Unavailabl e Reason for Visit * Reason Onset Date Comments Symptom Management 08/01/2021 Encounter Details Date Type Department Care Team (Late st Contact Info) Description 08/01/2021 Telephone [facility] [address] [place] [address] Provider, None [place] Symptom Management Social History Tobacco Use Types Packs/Day Years Used Date Smoking Tobacco: Never Smokeless Tobacco: Never Alcohol Use Standard Drinks/Week Comments Not Currently 0 (1 standard drink = 0.6 oz pur e alcohol) Comments Unknown Sex and Gender Information Value Date Recorded Sex Assigned at Not on file Legal Sex Female 2:37 PM PROFESSIONAL NURSE Gender Identity Not on file Sexual Orientation Not on file COVID-19 Exposure Response Date Recorded In the last month, have you been in contact with someone who was confirmed or suspected to have Coronavirus / COVID-19? No / Unsure 07/25/2021 2:38 PM PROFESSIONAL NURSE documented as of this encounter Miscellaneous Notes * Telephone Encounter - Kassidy Rush - 08/01/2021 3:59 PM CST Patient calling to discuss symptom changes from PC. No PCP. Transferred to RN. ESSIONAL NURSE documented in this encounter Plan of Treatment Not on file documented as of this encounter Visit Diagnoses Not on filedocumented in this encounter Care Teams Golf Course Ranger Relationship Specialty Start Date End Date Provider, None [place] PCP - General 07/25/21 documented as of this encounter
== END 2024-07-15 22:02 | disposition home or self-care (01) ==
PROVIDERS: Emergency Medicine; Registered Nurse; Emergency Provider Student in an Organized Health Care Education/Training Program; PCP Family Medicine
DX: R00.2 Palpitations (principal); I34.1 Nonrheumatic mitral (valve) prolapse; Z90.710 Acquired absence of both cervix and uterus; R94.31 Abnormal electrocardiogram [ECG] [EKG]
CPT/HCPCS: 36415; 71046; 80053; 81001; 83690; 84484; 85025; 85610; 85730; 93005; 99284